=== PATIENT | male | born 1940 | race Caucasian/White ===

== ENCOUNTER → 2019-09-30 | Outpatient (CLI) | payer MEDICAID ==
--- NOTE | 2019-10-05 12:22 | P.ARTDOP ---
Arterial Doppler LOWER EXTREMITY ARTERIAL DOPPLER: DATE OF SERVICE: 09/30/2019 Reason for study: Left calf claudication. Doppler waveforms: Multiphasic throughout on the right. Atypical throughout on the left.. Pulse volume recording: []. Pressure gradients: None on the right. Above the low thigh on the left.. Ankle-brachial indices: Greater than 1 on the right and 0.72 on the left. Toe brachial indices: 0.67 on the right, 0.45 on the left Impression: Normal right side. 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 Clinical correlation with vascular surgery assessment suggested.
== END | disposition home or self-care (01) ==
LOC: RADUSWWP 09:30
PROVIDERS: ATTEND Family Medicine
DX: I77.89 Other specified disorders of arteries and arterioles (principal); I83.812 Varicose veins of left lower extremity with pain
CPT/HCPCS: 93923

== ENCOUNTER 2019-12-12 08:34 | Day surgery (SDC) | payer MEDICAID ==
[2019-12-09 08:45] VITALS: BMI 23.1
[~2019-12-12 08:34] MED LIST: LACTATED RINGERS 1,000 ML IV SCH
[2019-12-12 09:03] VITALS: TEMP 97.8
[2019-12-12] MEDS ORDERED: PROPOFOL 10 MG/ML 20 ML VIAL IV ONE (09:42)
[2019-12-12] MEDS ORDERED: LIDOCAINE 1% INJ 10MG/ML (20 ML MDV) ONE (09:42)
[2019-12-12 10:19] VITALS: RESP 16
--- NOTE | 2019-12-12 10:19 | P.PCN ---
Date of Procedure: 12/12/19 Description of Procedure: BRIEF HISTORY: Patient is a 79-year-old male presenting for outpatient colonoscopy for evaluation after positive Cologard. No prior colonoscopies. No change in bowel habits or blood per rectum. He denies any abdominal pain. No family history of colon cancer PROCEDURE PERFORMED: Colonoscopy with polypectomy. PREOPERATIVE DIAGNOSIS: Positive Cologard, no prior colonoscopy. ESTIMATED BLOOD LOSS: Minimal. IV sedation per Anesthesia. PROCEDURE: After informed consent was obtained, the patient, was brought into the endoscopy unit. IV sedation was administered by Anesthesia under continuous monitoring. Digital rectal examination was normal. Initially the Olympus CF-190 flexible video colonoscope was then inserted in the rectum, gradually advanced into the cecum without any difficulty. Careful examination was performed as the scope was gradually being withdrawn. Ileocecal valve and the appendiceal orifice were visualized and appeared normal. Prep was excellent. Mucosa of the cecum, ascending colon, transverse colon, descending colon, sigmoid colon, and rectum appeared normal. 2 diminutive polyps removed with cold forcep polypectomy from the cecum measuring 3 mm and from the rectum measuring 2 mm. A few scattered diverticula noted in the sigmoid colon. Retroflexion was performed in the rectum and no lesions were seen, low-grade internal hemorrhoids. The patient tolerated the procedure well. IMPRESSION: 2 diminutive polyps removed with cold forceps from the cecum and rectum. Mild sigmoid diverticulosis. Internal hemorrhoids. RECOMMENDATIONS: Findings of this examination were discussed with the patient and his . Okay to resume diet. Okay to resume medications. Await pathology from polypectomies. Follow-up in primary care physician office as scheduled.
[2019-12-12 10:37] VITALS: BP 144/71; PULSE 61
== END 2019-12-12 10:57 ==
LOC: ORWHC2ENDO 08:34
PROVIDERS: ATTEND Internal Medicine
DX: K63.5 Polyp of colon (principal); K62.1 Rectal polyp; K57.30 Diverticulosis of large intestine without perforation or abscess without bleeding; K64.8 Other hemorrhoids; E78.5 Hyperlipidemia, unspecified; G47.33 Obstructive sleep apnea (adult) (pediatric); F17.210 Nicotine dependence, cigarettes, uncomplicated; N40.0 Benign prostatic hyperplasia without lower urinary tract symptoms; Z79.899 Other long term (current) drug therapy; Z98.890 Other specified postprocedural states
CPT/HCPCS: 88305; 45380; J2001; J2704

== ENCOUNTER → 2019-12-29 | Outpatient (CLI) | payer MEDICAID ==
--- NOTE | 2019-12-29 14:10 | MR ---
EXAMINATION TYPE: MR cervical spine wo con DATE OF EXAM: 12/29/2019 COMPARISON: None HISTORY: Neck Pain into left scapula and lt arm TECHNIQUE: Multiplanar, multisequence images of the cervical spine were acquired. C2-C3: Minimal posterior disc bulge causes only slight anterior mass effect on the thecal sac. There is some facet arthropathy causing some left-sided foraminal encroachment. No significant spinal steno sis. C3-C4: Posterior extension endplate disc complex causes mild anterior mass effect on the thecal sac. Uncovertebral joint hypertrophy, facet arthropathy results in left-sided foraminal encroachment. Ther e is mild spinal stenosis. C4-C5: Posterior extension endplate disc complex results in moderate spinal stenosis. There is anteri or mass effect on the thecal sac. Right-sided foraminal encroachment is present greater than left due to uncovertebral joint hypertrophy and facet arthropathy. C5-C6: Posterior extension endplate disc complex causes anterior mass effect on the thecal sac, mild to moderate spinal stenosis. There is foraminal encroachment left greater than right. C6-C7: Posterior extension endplate disc complex causes mild anterior mass effect on the thecal sac. Foraminal encroachment is present bilaterally left greater than right. No significant spinal stenosis . C7-T1: No evidence for degenerative disc disease. No disc bulge/herniation or protrusion. No Canal stenosis. Foramina are patent bilaterally. Cervical segments are intact. There is normal alignment. Cervical spinal cord is of normal signal. Craniovertebral junction relationships are within normal limits. There is multilevel spondylosis wi th endplate discogenic marrow signal change. Loss of disc height, signal is present intervertebral le vels C3-4, C4-5, C5-6 and C6-7, minimal anterolisthesis grade 1 C3-4 and C2-3. The dens shows an irregular appearance, question a remote fracture at this level, there is no evident marrow edema to suggest subacute fracture. Inflammatory changes are present within the sphenoid sinu s. IMPRESSION: Multilevel degenerative disc disease, foraminal encroachment, spinal stenosis. Findings at C2 as desc ribed could possibly represent a remote fracture, consider CT cervical spine. Sphenoid sinus disease.
== END | disposition home or self-care (01) ==
LOC: RADMRIMAIN 12:29
PROVIDERS: ATTEND Family Medicine
DX: M48.02 Spinal stenosis, cervical region (principal); M50.10 Cervical disc disorder with radiculopathy, unspecified cervical region
CPT/HCPCS: 72141

== ENCOUNTER → 2020-01-16 | Outpatient (CLI) | payer MEDICAID ==
[2020-01-16 09:53] VITALS: BP 128/59; PULSE 72; RESP 18; TEMP 98.7
--- NOTE | 2020-01-16 10:16 | P.PAINCN ---
History of Present Illness - Reason for Consult Consult date: 01/16/20 - History of Present Illness This is a 79-year-old patient referred by Dr. Gong (neurosurgeon in [facility]) with a chief complaint of chronic pain in left shoulder pain radiating down to fingertips. She notes that his pain started about 1.5 years ago with no inciting incident. Pain is located in the left neck and shoulder pain with radiation down the posterior arm into the posterior fingers. Pain is described as sharp and shooting with occasional numbness and tingling. Alleviated by heat and raising his arm overhead. Exacerbated by physical activity, in general very hard to pinpoint. Currently his pain is a 5 out of 10, at its worst a 10 out of 10, at its best a 3 out of 10. Medication he is taking Flexeril, Williams, gabapentin and Naprosyn. He notes that he's been taking this medication more than usual this month as his pain is gotten much worse. In regards to his overall management he did physical therapy over the winter which helped for some time but then the pain returned. He then saw a chiropractor earlier this year he did 6 sessions which caused 100% relief of his pain for 2 months. Recently he went back given that his pain does return and felt a chiropractor session was too painful to do any form of therapy for him. He has not had any pain injections in the past. Patient denies adverse drug effects from medications. Patient also denies new- onset weakness, bowel/bladder incontinence, or any other signs or symptoms of cauda equina syndrome. There are no signs of acute intoxication, and no indications of medication diversion or overuse. In addition to above, 13-point review of systems is also negative for chest pain, shortness of breath, changes in vision, changes in hearing, new onset weakness, abdominal pain, diarrhea, extreme fatigue, malaise, fever, skin c hanges, homicidal or suicidal ideation, or bowel or bladder incontinence. Physical exam: Vital Signs: Reviewed in EMR GENERAL: Well appearing, in no acute distress PSYCH: Mood and affect is appropriate. Awake, alert, and oriented SKIN: Skin color, texture, turgor normal, no rashes or lesions HEENT: Normocephalic, atraumatic. EOM intact CV: No pedal edema RESP: Respirations are unlabored, no audible wheezing GI: Abdomen non-distended MUSCULOSKELETAL: Bilateral upper and lower extremity strength is normal and symmetric. No atrophy or tone abnormalities are noted. Neck: pain to palpation over the left cervical paraspinous muscles and upper medial aspect of the scapula. Spurling negative, Axial Loading Test negative, Perrin's sign negative. Some pain with neck flexion and extension No obvious deformity or signs of trauma. Normal cervical lordotic curve and normal cervical spine range of motion Extremities: Peripheral joint ROM is full and pain free without obvious instability or laxity in all four extremities. No edema or skin discolorations noted. Gait: Gait is normal NEUR: Bilateral upper and lower extremity coordination and muscle stretch reflexes are physiologic and symmetric. Negative clonus. No loss of sensation is noted. Cranial nerves are grossly intact. Winter sign negative bilaterally Empty Can negative bilaterally Neers test negative bilaterally Imaging: Cervical MRI 12/2019 C2-C3: Minimal posterior disc bulge causing only slightly anterior mass effect on thecal sac. Some facet arthropathy causing left-sided foraminal encroachment. No significant spinal canal stenosis. C3-C4: Posterior extension endplate disc complex causes mild anterior mass effect on the thecal sac. Uncovertebral joint hypertrophy, facet arthropathy results in left-sided foraminal encroachment. Mild spinal stenosis. C4-C5: Posterior extension endplate disc complex resultant moderate spinal stenosis. Anterior mass effect on the thecal sac. Right-sided foraminal encroachment is present greater on the left due to uncovertebral joint hypertrophy and facet arthropathy. C5-C6: Posterior extension endplate disc complex causes anterior mass effect on the thecal sac mild to moderate spinal stenosis. Foraminal encroachment left greater than right C6-C7: Posterior extension endplate is complex causes mild anterior mass effect on thecal sac. Foraminal encroachment is present bilaterally left greater than right. No significant stenosis. C7-T1: No evidence for degenerative disc disease. No disc bulge or herniation or protrusion. No stenosis. Foramina are patent bilaterally. Assessment: 1. Cervical radicular pain Plan: 1. Explanation: Diagnoses, prognoses, and multiple treatment options including but not limited to physical therapy, interventional therapies, medication management and surgery were discussed with the patient and all questions were answered to the patient's satisfaction. 2. Investigations: None, consider EMG in the future if patient does not get benefit from [facility]UL 3. Counseling: The patient was counseled for 3 minutes on SMOKING CESSATION, BODY MASS INDEX, EXERCISE. Specifically, the patient was instructed regarding the importance of smoking cessation, weight control, and exercise in the context of both chronic pain and overall health. 4. Procedures: Schedule for cervical epidural steroid injection C7-T1 left paramedian approach If our procedures do not help, Dr Gong would like him to come back to consider surgical evaluation. 5. Consultations: None 6. Medications: Continue current regimen from PCP 7. Disposition: For procedure. Past Medical History Past Medical History: Asthma, Cancer, Hyperlipidemia, Osteoarthritis (OA), Prostate Disorder, Sleep Apnea/CPAP/BIPAP Additional Past Medical History / Comment(s): skin cancer, uses CPAP, positive cologuard History of Any Multi-Drug Resistant Organisms: None Reported Past Surgical History: Tonsillectomy Additional Past Surgical History / Comment(s): skin cancers removed, uvulectomy & surg. for sleep apnea, COLONOSCOPY Past Anesthesia/Blood Transfusion Reactions: No Reported Reaction Smoking Status: Former smoker - Past Family History Sister(s) Family Medical History: Cancer Medications and Allergies Home Medications Medication Instructions Recorded Confirmed Type Atorvastatin [Lipitor] 40 mg PO DAILY 12/09/19 01/16/20 History Multivitamins, Thera [Multivitamin 1 tab PO DAILY 12/09/19 01/16/20 History (formulary)] Naproxen [Naprosyn] 500 mg PO Q12HR 12/09/19 01/16/20 History Saw [place] 500 mg PO DAILY 12/09/19 01/16/20 History Tamsulosin [Flomax] 0.4 mg PO DAILY 12/09/19 01/16/20 History Cyclobenzaprine [Flexeril] 10 mg PO HS 01/11/20 01/16/20 History Gabapentin 300 mg PO BID 01/11/20 01/16/20 History HYDROcodone/APAP 7.5-325MG [Williams 1 - 2 tab PO TID PRN 01/11/20 01/16/20 History 7.5-325] Allergies Allergy/AdvReac Type Severity Reaction Status Date / Time No Known Allergies Allergy Verified 01/11/20 15:46 PQRS Measure Charge Sheet PQRS Narrative: Pain Intensity [Left Shoulder] 6 Scale Used Numeric (1 - 10) Hx Alcohol Use (MH) Yes Home Medications: Ambulatory Orders Atorvastatin [Lipitor] 40 mg PO DAILY 12/09/19 Multivitamins, Thera [Multivitamin (formulary)] 1 tab PO DAILY 12/09/19 Naproxen [Naprosyn] 500 mg PO Q12HR 12/09/19 Saw [place] 500 mg PO DAILY 12/09/19 Tamsulosin [Flomax] 0.4 mg PO DAILY 12/09/19 Cyclobenzaprine [Flexeril] 10 mg PO HS 01/11/20 Gabapentin 300 mg PO BID 01/11/20 HYDROcodone/APAP 7.5-325MG [Williams 7.5-325] 1 - 2 tab PO TID PRN 01/11/20
== END | disposition home or self-care (01) ==
LOC: PNWHC3 09:34
PROVIDERS: ATTEND Anesthesiology
DX: M54.12 Radiculopathy, cervical region (principal); Z79.899 Other long term (current) drug therapy; Z79.891 Long term (current) use of opiate analgesic
CPT/HCPCS: 99211

== ENCOUNTER 2020-01-24 06:16 | Day surgery (SDC) | payer MEDICAID ==
[2020-01-20 15:33] VITALS: BMI 23.5
[2020-01-24 07:03] VITALS: RESP 16; TEMP 97.9
[2020-01-24] MEDS ORDERED: fentaNYL (PF) 50 MCG/ML 2 ML AMP ONE (07:21)
[2020-01-24] MEDS ORDERED: MIDAZOLAM 2 MG/2 ML VIAL ONE (07:21)
[2020-01-24] MEDS ORDERED: IOPAMIDOL M200 10 ML VIAL ONE (07:21)
[2020-01-24] MEDS ORDERED: DEXAMETHASONE SOD PHOSPHATE 10 MG/ML 1 ML VIAL ONE (07:21)
--- NOTE | 2020-01-24 07:34 | P.PCN ---
Date of Procedure: 01/24/20 Surgeon: Doug Beckett Pathology: none sent Condition: stable Disposition: PACU Description of Procedure: PROCEDURE 1. Cervical epidural steroid injection under fluoroscopic guidance, C7-T1 in the left paramedian approach. 2. Cervical epidurogram. : PREOPERATIVE DIAGNOSIS: Cervical radiculopathy, cervical spondylosis without myelopathy POSTOPERATIVE DIAGNOSIS: : Same as above ANESTHESIA: Local anesthesia with 1% lidocaine and IV moderate conscious sedation with Versed and Fentanyl . EBL 0 PROCEDURE INDICATION: The patient with neck pain and radiculopathy unresponsive to conservative treatment consents for procedure. PROCEDURE DESCRIPTION / TECHNIQUE: The patient was seen and identified in the preoperative area. Risks, benefits, complications, including but not limited to infections ,bleeding , allergic reactions to the medications ,and not complete pain relief, and alternatives were discussed with the patient, the patient agreed to proceed with the procedure and signed the consent. Patient was taken to the OR and time out was completed. The patient was placed in the prone position on the procedure table. A pillow was placed under the patients chest to increase the flexion of the cervical spine . The cervical area was prepped and draped in the usual sterile fashion. Vital signs were closely monitored during the procedure. Conscious sedation was used during the procedure to decrease patients anxiety. Using anterior-posterior fluoroscopy, the C7-T1 interlaminar space was identified and the skin over this site was marked and then infiltrated with 1% lidocaine subcutaneously. Subsequently, a 20-gauge 3-1/2-inch Tuohy epidural needle was inserted and advanced toward the epidural space by means of loss of resistance to air technique and guided by AP and lateral fluoroscopy. The needle tip contacted the lamina of T1 vertebra first, then it was walked off bone and into the epidural space using the loss of to air and fluoroscopic guidance to identify the epidural space. The correct needle position in the epidural space was verified with the injection of 1 mL of the water soluble contrast dye Isovue and observing an excellent epidurogram with the epidural spread of the dye, after negative aspiration for blood and CSF and in the absence of paresthesias. Again after negative aspiration, a 3 ml mixture containing 20 mg of Decadron and 1 ml of preservative free Normal Saline solution was injected and a washout of epidurogram was seen. Needle was withdrawn intact, skin was cleansed, and bandages were applied. A copy of the needle placement picture was saved to the fluoroscopy machine.
[2020-01-24] MEDS ORDERED: IV FLUID CONTINUATION 800 ML IV ONE (07:48)
[2020-01-24 07:56] VITALS: BP 117/59; PULSE 63
--- NOTE | 2020-01-24 08:12 | FL ---
Fluoroscopy INDICATION: Pain FINDINGS: Fluoroscopy time: 6 seconds. Images obtained: 1. IMPRESSIONS: 1. Documentation of fluoroscopy.
== END 2020-01-24 08:12 | disposition home or self-care (01) ==
LOC: ORPAIN 06:16
PROVIDERS: ATTEND Anesthesiology
DX: Z53.9 Procedure and treatment not carried out, unspecified reason (principal)
CPT/HCPCS: 62321; J2250; J1100; J3010; Q9966

== ENCOUNTER 2020-02-14 14:00 | Day surgery (SDC) | payer MEDICAID ==
[2020-02-08 11:19] VITALS: BMI 24.3
[2020-02-14] MEDS ORDERED: LACTATED RINGERS 1,000 ML IV SCH (14:15)
[2020-02-14 14:31] VITALS: TEMP 97.9
[2020-02-14] MEDS ORDERED: DEXAMETHASONE SOD PHOSPHATE 10 MG/ML 1 ML VIAL ONE (15:20)
[2020-02-14] MEDS ORDERED: IOPAMIDOL M200 10 ML VIAL ONE (15:20)
--- NOTE | 2020-02-14 15:38 | P.PCN ---
Date of Procedure: 02/14/20 Procedure(s) Performed: . PROCEDURE 1. Cervical epidural steroid injection under fluoroscopic guidance, C7-T1 (fluoroscopy images available in the radiology department ) 2. Cervical epidurogram. # 2nd injections PREOPERATIVE DIAGNOSIS: 1- Cervical spinal stenosis 2- Cervical radiculopathy., 3-cervical spondylosis with cervical Facet arthropathy without myelopathy POSTOPERATIVE DIAGNOSIS: : 1- Cervical spinal stenosis 2- Cervical radiculopathy. 3-,cervical spondylosis with cervical Facet arthropathy without myelopathy ANESTHESIA: Local anesthesia with lidocaine 1 % 3 ml only EBL 0 PROCEDURE INDICATION: The patient with neck pain and radiculitis unresponsive to conservative treatment consents for procedure. PROCEDURE DESCRIPTION / TECHNIQUE: The patient was seen and identified in the preoperative area. Risks, benefits, complications, including but not limited to infections ,bleeding , allergic reactions to the medications ,and not complete pain releife, and alternatives were discussed with the patient, the patient agreed to proceed with the procedure and signed the consent. Patient was taken to the OR and time out was completed. The patient was placed in the prone position on the procedure table. A pillow was placed under the patients chest to increase the cervical interlaminar space. The cervical area was prepped and draped in the usual sterile fashion. Vital signs were closely monitored during the procedure. Using anterior-posterior fluoroscopy, the C7-T1 interlaminar space ( left paramedial ) was identified and the skin over this site was marked and then infiltrated with 1% lidocaine subcutaneously. Subsequently, a 20-gauge 3-1/2-inch Tuohy epidural needle was inserted and advanced toward the epidural space by means of the ``hanging-drop technique and guided by AP and lateral fluoroscopy. The correct needle position in the epidural space was verified with the injection of 2 mL of the water soluble contrast dye Isovue-200 and observing an excellent epidurogram with the epidural spread of the dye, after negative aspiration for blood and CSF and in the absence of paresthesias. Again after negative aspiration, mixture containing 20 mg Dexamethasone and 2 ml of preservative-free normal saline injected and a washout of epidurogram was seen. Needle was withdrawn intact, skin was cleansed, and bandages were applied. Complications= none. Disposition= patient was placed in supine position and transferred to the recovery room area in stable condition and there was no evidence of upper or lower extremity motor or sensory deficit after the procedure patient was discharged from recovery room after discharge criteria met and home discharge in structions was given by the staff and patient will follow with the pain clinic in 2-4 weeks
[2020-02-14] MEDS ORDERED: IV FLUID CONTINUATION 800 ML IV ONE (15:41)
[2020-02-14 15:45] VITALS: RESP 16
--- NOTE | 2020-02-14 15:52 | FL ---
Fluoroscopy HISTORY: Pain 5 seconds fluoroscopy time supplied to the referring clinician. 1 intraoperative C-arm images docume nt the procedure. See dictated report from anesthesia.
[2020-02-14 15:54] VITALS: BP 168/80; PULSE 66
== END 2020-02-14 16:03 | disposition home or self-care (01) ==
LOC: ORPAIN 14:00
PROVIDERS: ATTEND Specialist
DX: M47.22 Other spondylosis with radiculopathy, cervical region (principal); M48.02 Spinal stenosis, cervical region
CPT/HCPCS: 62321; J1100; Q9966

== ENCOUNTER 2020-05-09 08:27 | Day surgery (SDC) | payer MEDICAID ==
[2020-05-07 17:48] VITALS: BMI 25.0
[~2020-05-09 08:27] MED LIST changes: +MOXIFLOXACIN HCL 0.5% DROPS 3 ML BTL OP PRN; +TETRACAINE 0.5% OPHTH (PF) DROPS 4 ML BTL OP PRN; +TIMOLOL 0.5% OPHTH DROPS 5 ML BTL OP PRN
[2020-05-09 09:10] VITALS: RESP 16; TEMP 97.8
[2020-05-09] MEDS: PHENYLEPHRINE 2.5% OPHTH DRP 2ML OP PRN ×3 (09:19→09:41)
[2020-05-09] MEDS: CYCLOPENTOLATE 1% OPHTH SOLN 2 ML BTL OP PRN ×3 (09:24→09:44)
[2020-05-09] MEDS ORDERED: LIDOCAINE 1% (10MG/ML) FOR IV START INTRADERMA ONE (09:32)
[2020-05-09] MEDS ORDERED: fentaNYL (PF) 50 MCG/ML 2 ML AMP ONE (10:06)
[2020-05-09] MEDS ORDERED: MIDAZOLAM 2 MG/2 ML VIAL ONE (10:06)
[2020-05-09] MEDS ORDERED: BALANCED SALT IRRIG SOLN COMB2 15 ML IRRIG.SOLN INTRAOCULA ONE (10:19)
[2020-05-09] MEDS ORDERED: HYALURONATE SODIUM INTRAOCULAR 1 EACH SYRINGE (12MG/ML) INTRAOCULA ONE (10:19)
[2020-05-09] MEDS ORDERED: LIDOCAINE 1% (PF) 10MG/ML VIAL SQ ONE ×2 (10:20)
[2020-05-09] MEDS ORDERED: EPINEPHrine (PF) 1 MG/ML AMP SQ ONE (10:27)
[2020-05-09] MEDS ORDERED: EPINEPHrine (PF) 0.3 ML in BALANCED SALT IRRIG SOLN COMB2 500 ML IRRIGATION ONE (10:30)
--- NOTE | 2020-05-09 10:48 | P.OP ---
Date of Procedure: 05/09/20 Preoperative Diagnosis: NS & CS & reg astig Postoperative Diagnosis: same Procedure(s) Performed: PIOL, OD Implants: [id number] 23.5 x 1.25 Anesthesia: MAC Surgeon: Julián Perez Pathology: none sent Condition: stable Disposition: same day Indications for Procedure: blurry vision Operative Findings: no complications
[2020-05-09 11:08] VITALS: BP 134/72; PULSE 63
--- NOTE | 2020-05-09 20:25 | OP ---
OPERATIVE REPORT DATE OF SURGERY: 05/09/2020 PROCEDURE: Phacoemulsification of cataract and intraocular lens implant of the right eye. 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 SURGEON: Dr. Julián Perez ANESTHESIA: Topical. ESTIMATED BLOOD LOSS: None. SPECIMEN TAKEN: None. NARRATIVE: After obtaining the appropriate consent, the patient was brought to the operating room. There he was asked to sit upright, and the axes of 0 and 180 degrees were identified and marked with a gentian meg marker. He was then placed in the proper supine position under cardiac monitoring and prepped and draped in the usual sterile manner. He was approached from his right temporal side, and at the 11 o'clock position an MVR blade was used to create a paracentesis port. Through this opening a mixture of 1% lidocaine MPF with epinephrine 1:1000 and balanced salt solution in a ratio of 1:2:1 was injected into the anterior chamber. A few moments were allowed to see if this medication had any effect on the slightly irregular-appearing pupillary aperture. This was followed by instillation of Amvisc to stabilize the anterior chamber of the eye. At the 9 o'clock position, a 2.5 mm keratome was used to create a self-sealing corneal flap incision. Additionally, using previously acquired corneal topography information, the axis of 153 degrees was identified and marked with a [facility] axis marker which had been also inked with gentian meg. Returning to the anterior chamber, the iris did not appear to enlarge any, and there were indications that inadequate dilation would be sustained through the entire case. Therefore, a 7 mm Malyugin ring was used and inserted on the pupillary sphincter to ensure that the pupil maintained the normal dilation during the entire operation. This was followed by insertion of a cystotome, which was used to begin a continuous tear capsulorrhexis which was then completed using the Utrata forceps. Hydrodissection and hydrodelineation of the lens was accomplished with balanced salt solution. Phacoemulsification of the lens utilizing phaco chop was accomplished at 11.85 seconds at 9% power. Additional lidocaine MPF mixture was instilled into the anterior chamber. This was followed by removal of the remaining cortex from in and around the capsule and underlying the anterior capsular leaflet. The capsular bag was then reinflated with Amvisc and a [employer] Lomb MX 60 ET 23.5 diopter, 1.25 cylinder correction was placed into the capsular bag without difficulty. The remaining viscoelastic was removed from in and around the intraocular lens and the lens hash moy were then aligned with the 153-degree axis marked on the outside of the patient's eye. A small amount of viscoelastic was then inserted into the anterior chamber to facilitate removal of the Malyugin ring. This was followed by removal of all remaining viscoelastic from the anterior chamber. The eye was then brought to normal intraocular pressure through the paracentesis port and the wounds were confirmed watertight. He then received 2 drops of 0.5% timolol followed by 2 drops of moxifloxacin, was then lightly patched and shielded in the usual manner. There were no complications from the procedure. He tolerated the procedure well and was returned to Outpatient Recovery in good condition. MMCAIN / ABDULLAHI: [id number] /
== END 2020-05-09 11:30 | disposition home or self-care (01) ==
LOC: OR 08:27
PROVIDERS: ATTEND Ophthalmology
DX: H25.013 Cortical age-related cataract, bilateral (principal); H25.13 Age-related nuclear cataract, bilateral; H52.221 Regular astigmatism, right eye; H21.81 Floppy iris syndrome; T45.1X5A Adverse effect of antineoplastic and immunosuppressive drugs, initial encounter; H52.03 Hypermetropia, bilateral; H43.22 Crystalline deposits in vitreous body, left eye; H52.4 Presbyopia; E78.5 Hyperlipidemia, unspecified; M19.90 Unspecified osteoarthritis, unspecified site; Z98.890 Other specified postprocedural states; Z90.89 Acquired absence of other organs; Z87.891 Personal history of nicotine dependence; N40.0 Benign prostatic hyperplasia without lower urinary tract symptoms; Z97.2 Presence of dental prosthetic device (complete) (partial); Z79.1 Long term (current) use of non-steroidal anti-inflammatories (NSAID); Z79.82 Long term (current) use of aspirin; Z79.899 Other long term (current) drug therapy
CPT/HCPCS: 66984; V2787; C1780; J2250; J0171; J3010; J2001

== ENCOUNTER 2020-05-16 06:21 | Day surgery (SDC) | payer MEDICAID ==
[2020-05-14 09:02] VITALS: BMI 25.0
[2020-05-16 06:42] VITALS: TEMP 98
[2020-05-16] MEDS: PHENYLEPHRINE 2.5% OPHTH DRP 2ML OP PRN ×3 (06:45→07:03)
[2020-05-16] MEDS: CYCLOPENTOLATE 1% OPHTH SOLN 2 ML BTL OP PRN ×3 (06:47→07:06)
[2020-05-16] MEDS ORDERED: LIDOCAINE 1% (10MG/ML) FOR IV START INTRADERMA ONE (06:54)
[2020-05-16] MEDS ORDERED: fentaNYL (PF) 50 MCG/ML 2 ML AMP ONE (07:21)
[2020-05-16] MEDS ORDERED: MIDAZOLAM 2 MG/2 ML VIAL ONE (07:21)
[2020-05-16] MEDS ORDERED: LIDOCAINE 1% (PF) 10MG/ML VIAL MISCELLANE ONE (07:39)
[2020-05-16] MEDS ORDERED: HYALURONATE SODIUM INTRAOCULAR 1 EACH SYRINGE (12MG/ML) INTRAOCULA ONE (07:39)
[2020-05-16] MEDS ORDERED: BALANCED SALT IRRIG SOLN COMB2 15 ML IRRIG.SOLN IRRIGATION ONE (07:39)
[2020-05-16] MEDS ORDERED: EPINEPHrine (PF) 0.3 ML in BALANCED SALT IRRIG SOLN COMB2 500 ML IRRIGATION ONE (07:43)
--- NOTE | 2020-05-16 07:57 | P.OP ---
Date of Procedure: 05/16/20 Preoperative Diagnosis: NS & CS & exposure to Flomax Postoperative Diagnosis: same Procedure(s) Performed: PIOL, OS Implants: [id number] 24.00 Anesthesia: MAC Surgeon: Julián Perez Pathology: none sent Condition: stable Disposition: same day Indications for Procedure: blurry vision Operative Findings: no complications
[2020-05-16 08:17] VITALS: BP 149/67; PULSE 62; RESP 18
--- NOTE | 2020-05-16 15:51 | OP ---
OPERATIVE REPORT DATE OF SURGERY: May 16, 2020. PROCEDURE: Phacoemulsification of cataract and intraocular lens implant of the left eye. 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 SURGEON: Dr. Julián Perez. ANESTHESIA: Topical. ESTIMATED BLOOD LOSS: None. SPECIMEN TAKEN: None. NARRATIVE: After obtaining the appropriate consent, the patient was brought to the operating room. There he was placed under cardiac monitoring, prepped and draped in the usual sterile manner. He was approached from his left temporal side and at the 5 o'clock position an MVR blade was used to create a paracentesis port. Through this opening 1% Xylocaine MPF 50:50 mix with balanced salt solution was injected into the anterior chamber. This was followed by stabilization of the anterior chamber with Amvisc. At the 3 o'clock position, a 2.5 mm keratome was used to create a self-sealing corneal flap incision. At this point, the irregular shape of the iris and definite flaccidity of the dilator muscle required a 7 mm Malyugin ring to be inserted on the pupillary sphincter. A cystotome was then introduced to begin a continuous tear capsulorrhexis which was completed using the Utrata forceps. Hydrodissection and hydrodelineation of the lens were accomplished with balanced salt solution. Phacoemulsification lens utilizing phaco chop was accomplished in 14.43 seconds at 12% power. Additional Xylocaine MPF was instilled into the anterior chamber. This followed by removal of the remaining cortex under irrigation and aspiration along with careful polishing of the posterior capsule in the capsule vacuum mode. Amvisc was then used to stabilize the capsular bag and a Bausch [employer] Lomb MX60E 24.0 diopter posterior chamber intraocular lens was then injected into the capsular bag without difficulty. The Malyugin ring was disinserted and removed from the anterior chamber and the remaining viscoelastic was then removed from the anterior chamber. Limited ability to get to the remaining viscoelastic from behind the intraocular lens was limited to the miosis presenting at the end of the case. The eye was then brought to normal intraocular pressure through the paracentesis port with balanced salt solution and he was then treated with moxifloxacin 2 drops and 2 drops of 0.5% timolol. He was then lightly patched and shielded in the usual manner. There were no complications from the procedure. He tolerated the procedure well and was returned to outpatient recovery in good condition. ANÍBAL / ABDULLAHI: [id number] /
== END 2020-05-16 08:33 | disposition home or self-care (01) ==
LOC: OR 06:21
PROVIDERS: ATTEND Ophthalmology
DX: H21.81 Floppy iris syndrome (principal); H52.03 Hypermetropia, bilateral; H43.22 Crystalline deposits in vitreous body, left eye; Z98.41 Cataract extraction status, right eye; Z96.1 Presence of intraocular lens; M19.90 Unspecified osteoarthritis, unspecified site; J45.909 Unspecified asthma, uncomplicated; Z85.828 Personal history of other malignant neoplasm of skin; J30.2 Other seasonal allergic rhinitis; Z80.1 Family history of malignant neoplasm of trachea, bronchus and lung; Z79.52 Long term (current) use of systemic steroids; Z79.899 Other long term (current) drug therapy; Z80.7 Family history of other malignant neoplasms of lymphoid, hematopoietic and related tissues; Z83.3 Family history of diabetes mellitus; Z82.49 Family history of ischemic heart disease and other diseases of the circulatory system; Z82.3 Family history of stroke; Z82.0 Family history of epilepsy and other diseases of the nervous system; Z87.891 Personal history of nicotine dependence
CPT/HCPCS: 66984; C1780; J2250; J0171; J3010; J2001

== ENCOUNTER → 2021-12-30 | Outpatient (CLI) | payer BC ==
--- NOTE | 2021-12-30 11:50 | CT ---
EXAMINATION TYPE: CT chest w con DATE OF EXAM: 12/30/2021 COMPARISON: None HISTORY: Nodule CT DLP: 499 mGycm Automated exposure control for dose reduction was used. TECHNIQUE: CT scan of the chest is performed with IV Contrast, patient injected with 70 mL of Isovue 300. MIP I mages are created on CT scanner and reviewed. 3D reconstructed images are created on an independent w orkstation and reviewed. FINDINGS: LUNGS: There is subsegmental consolidation along the upper margin of the thoracic aorta. There is a l obulated mass within the left upper lobe with air bronchograms measuring 2.2 x 1.8 cm. No pleural eff usion or pneumothorax. Hyperinflation suggests COPD there is biapical pleural thickening. Additional 3 mm nodule right lower lobe axial image 38. Additional subpleural nodularity seen. Calcified granulo ma left upper lobe area MEDIASTINUM: There are multiple calcified lymph nodes compatible with chronic granulomatous disease. There is soft tissue fullness in the bilateral lung measuring short axis I.2 cm compatible with lymph adenopathy. No pericardial effusion is seen. OTHER: Hypertrophic and degenerative changes spine. There is a small hiatal hernia. Cannot exclude eccentri c wall thickening of the mid esophagus axial image 45. There is aneurysmal dilation of the abdominal aorta only partially limited measuring 3.5 cm. There is a large mass involving the left kidney measuring 5.8 cm. There is abnormal soft tissue attenuation within the right renal pelvis and proximal ureter suspiciou s for urothelial neoplasm. There is nonobstructing less than 5 mm renal calculi. Splenic granuloma no ajith. There is a small hiatal hernia. Cystic change involving the right shoulder likely is degenerativ e. There is nonspecific thickening of bilateral adrenal gland. Metastasis in the differential diagnosis. IMPRESSION: 1. Suspicious 2.2 x 1.8 cm left upper lobe lung mass suggestive of malignancy. Bilateral hilar adenop athy suspected. Vague consolidation along the margin of the aorta is not recommended PET scan. 2. Highly suspicious left renal mass measuring 5.8 cm suggestive of renal cell carcinoma. 3. Abnormal attenuation within the right renal pelvis and proximal ureter suspicious for urothelial n eoplasm. 4. COPD. 5. There is a 3.5 cm abdominal aortic aneurysm.
== END | disposition home or self-care (01) ==
LOC: RADCTMAIN 08:26
PROVIDERS: ATTEND Family Medicine
DX: J44.9 Chronic obstructive pulmonary disease, unspecified (principal); I71.40 Abdominal aortic aneurysm, without rupture, unspecified
CPT/HCPCS: 82565; 84520; 71260; 36415; Q9967

== ENCOUNTER → 2022-01-18 | Outpatient (CLI) | payer BC ==
--- NOTE | 2022-01-21 19:15 | PE ---
EXAMINATION TYPE: PET CT fusion skull to thigh DATE OF EXAM: 01/18/2022 CLINICAL INDICATION:Male, 81 years old with history of R91.1; TECHNIQUE: Following the intravenous administration of 12.8 mCi of F-18 FDG, whole body images are performed from the skull base to the midthigh. Images are reviewed on the computer in the coronal, a xial, and sagittal planes. Reconstructed rotating images are created on independent workstation and reviewed on the computer. A non-contrast CT is performed in conjunction with the PET scan. Glucose level 86 mg/dL COMPARISON: CT 12/30/2021, PET/CT None, FINDINGS: Mediastinal SUV mean is 1.5 . Hepatic parenchyma SUV mean is 2.1. SKULL BASE AND NECK: Eccentric left posterior esophageal wall thickening measuring up to 9 mm with increased bowel activit y max SUV 2.8. CHEST, MEDIASTINUM, AND HILAR REGION: * Left upper lobe nodule measuring 2.1 by 1.9 cm with max SUV 1.6 * Left pulmonary hilum nodule measuring up to 2.2 x 2.2 cm Max SUV 2.2. * Right pulmonary hilum r nodule measuring up to 2.0 x 1.4 cm. Max SUV 1.7. ABDOMEN AND PELVIS: * Left renal mass measuring 5.5 x 4.8 cm Max SUV 2.4. * The right renal pelvis increased attenuating area demonstrates max SUV 6.0 which may be excreted r adiotracer. OSSEOUS STRUCTURES: No suspicious radiotracer activity. OTHER CT: Paranasal sinus disease. Atherosclerosis of the arterial vasculature including the intracra nial and carotid terminal carotid arteries, carotid bifurcations and coronary arteries. Bilateral aph bravo. Partially calcified mediastinal lymph nodes present. Mild dilation of the right renal sinus pre sent with higher density contents. Nonobstructing right renal calculus. Infrarenal aortic aneurysm measuring up to 5.4 cm there is some mural thrombus felt to be visualized. IMPRESSION: 1. Left upper lobe pulmonary nodule, bilateral perihilar soft tissue nodules with mild increased FDG activity. Tissue sampling of the left upper lobe pulmonary nodule is recommended. 2. Eccentric left esophageal wall thickening with mild increased FDG activity concerning for maligna ncy until proven otherwise. Recommend direct visualization. 3. Left renal masslike appearance which does not demonstrate increased FDG activity but remain suspi cious for neoplastic process. Consider evaluation with MRI/CT renal mass protocol is recommended. 4. Mild right hydronephrosis with high attenuation within the right renal pelvis, Increased radiotra cer activity within this area could relate to excreted radiotracer activity versus radiotracer activi ty within a collecting system mass or other obstructive process. This can be evaluated at the same ti me as MRI/CT urogram for the left renal mass. 5. Infrarenal aortic aneurysm measuring up to 5.4 cm. This can also be evaluated on a forementioned i maging of the kidneys. Endovascular surgical consultation recommended.
== END | disposition home or self-care (01) ==
LOC: RADPETMAIN 13:10
PROVIDERS: ATTEND Internal Medicine Hematology & Oncology
DX: I71.43 Infrarenal abdominal aortic aneurysm, without rupture (principal); N13.30 Unspecified hydronephrosis; K22.89 Other specified disease of esophagus; R91.8 Other nonspecific abnormal finding of lung field
CPT/HCPCS: 78815; A9552

== ENCOUNTER → 2022-02-02 | Outpatient (CLI) | payer BC ==
--- NOTE | 2022-02-03 12:01 | MR ---
EXAMINATION TYPE: MR abdomen wo/w con DATE OF EXAM: 02/02/2022 11:12 AM INDICATION: Patient age:Male; 81 years old; Reason for study: R590. No prior MR, follow up right kidney mass seen on PET COMPARISON: PET/CT 01/21/2022, CT chest 12/30/2021. TECHNIQUE: Multiplanar multi-sequence imaging was performed without contrast. Post contrast imaging was performed. IV Contrast: 7ml cc Gadavist FINDINGS: LOWER CHEST: No gross irregularity. ABDOMEN Liver: Unremarkable. Gallbladder and Bile ducts: Unremarkable. Pancreas: Unremarkable. Spleen: Unremarkable. Adrenal glands: Unremarkable. Kidneys: Right: Demonstration of filling defect within the right renal pelvis measuring up to 3.6 x 2.5 cm. In termediate T2/low T1 signal. There is homogenous postcontrast imaging present. Additional right renal cortical cyst renal pole measuring up to 19 mm. Left: Renal mass which is peripherally low T2/ higher T1 signal peripherally and higher T2 low T1 sig nal essentially measuring 4.7 x 4.7 cm. Postcontrast imaging demonstrated enhancement of the common i rregular periphery. Central nonenhancement suggesting necrosis. Stomach and Bowel: Unremarkable as visualized. Peritoneum: No evidence of pneumoperitoneum, free fluid, or adenopathy. Vasculature: Infrarenal saccular aneurysm measuring up to 4.9 cm. Abdominal wall: Unremarkable. Musculoskeletal: The osseous structures appear intact. IMPRESSION: 1. 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 Urologic consultati on recommended. 2. Infrarenal saccular aneurysm measuring up to 4.9 cm. Endovascular surgical consultation recommend ed. 3. Mild right hydronephrosis secondary to #1 right renal sinus urothelial mass. 4. Simple appearing right renal cyst.
== END | disposition home or self-care (01) ==
LOC: RADMRIMAIN 10:30
PROVIDERS: ATTEND Internal Medicine Hematology & Oncology
DX: D41.10 Neoplasm of uncertain behavior of unspecified renal pelvis (principal); N28.1 Cyst of kidney, acquired; N13.30 Unspecified hydronephrosis; I71.43 Infrarenal abdominal aortic aneurysm, without rupture; R59.0 Localized enlarged lymph nodes
CPT/HCPCS: 74183; A9585

== ENCOUNTER 2022-02-06 11:00 | Day surgery (SDC) | payer BC ==
[2022-02-05 10:57] VITALS: BMI 25.8
[~2022-02-06 11:00] MED LIST changes: +LIDOCAINE 2% (PF) 20 MG/ML 5 ML VIAL INHALATION ONE; +LIDOCAINE VISCOUS 300 MG/15 ML CUP MUCOUS MEM ONE; -MOXIFLOXACIN HCL 0.5% DROPS 3 ML BTL OP PRN; +SODIUM CHLORIDE 0.9% 1,000 ML IV SCH; -TETRACAINE 0.5% OPHTH (PF) DROPS 4 ML BTL OP PRN; -TIMOLOL 0.5% OPHTH DROPS 5 ML BTL OP PRN
[2022-02-06 11:41] VITALS: TEMP 97.2
--- NOTE | 2022-02-06 12:31 | CT ---
EXAMINATION TYPE: CT Chest lizzette Pulliam Protocol DATE OF EXAM: 02/06/2022 COMPARISON: 12/30/2021 HISTORY: pulmonary nodules, bronch guidance CT DLP: [address] of the chest was performed with lung and mediastinal window settings submitted. The la ck of contrast limits evaluation of the vascular, mediastinal and parenchymal structures including th e upper abdomen. LUNGS: 2.3 cm left upper lobe mass felt to reflect malignancy until proven otherwise. 4 mm nodule rig ht lower lobe image 41 sequence 6. Perihilar nodules are difficult to characterize given the lack of contrast. There are also calcified hilar mediastinal lymph nodes. MEDIASTINUM/KAEL: Perihilar nodules are difficult to characterize given the lack of contrast. There are also calcified hilar mediastinal lymph nodes. UPPER ABDOMEN: Nodular thickening distal esophagus. OTHER: No significant other abnormality. IMPRESSION: 1. Left upper lobe mass, perihilar nodules and right lower lobe nodule. Findings are concerning for malignancy.
[2022-02-06] MEDS ORDERED: GLYCOPYRROLATE 0.2 MG/ML 2 ML VIAL ONE (12:51)
[2022-02-06] MEDS ORDERED: LIDOCAINE 2% INJ 20 MG/ML (2 ML VIAL) ONE (12:51)
[2022-02-06] MEDS ORDERED: PROPOFOL 10 MG/ML 20 ML VIAL IV ONE (12:51)
[2022-02-06] MEDS ORDERED: fentaNYL (PF) 50 MCG/ML 2 ML AMP ONE (12:51)
[2022-02-06] MEDS ORDERED: SUCCINYLCHOLINE CHLORIDE 200 MG/10 ML VIAL IV ONE (12:51)
[2022-02-06] MEDS ORDERED: NEOSTIGMINE 1 MG/ML 10 ML VIAL ONE (12:51)
[2022-02-06] MEDS ORDERED: ROCURONIUM 10 MG/ML (5 ML VIAL) IV ONE (12:51)
--- NOTE | 2022-02-06 14:11 | P.PCN ---
Date of Procedure: 02/06/22 Preoperative Diagnosis: Left upper lobe mass Postoperative Diagnosis: Left upper lobe mass Procedure(s) Performed: Operative Findings: 1 Navigational bronchoscopy 2 transbronchial biopsy , transbronchial brushings, transbronchial needle aspirate and BAL of LOC mass 1 (lingular mass) 3 transbronchial Biopsy of LOC mass #2 4 EBUS 5 TBNA of the subcarinal LN Anesthesia: GETA Surgeon: Evangelina Rubio Manager Medicare #1:Candace Buchanan Estimated Blood Loss (ml): 0 Pathology: other Condition: stable Disposition: same day Operative Findings: Indication: left upper lobe mass This procedure was done under general anesthesia. There is a navigational bronchoscopy. The patient initially had a CAT scan of the chest utilizing the [employer] protocol. The images were uploaded into the software and the left upper lobe mass was identified and appropriate calibrations and mapping was done. Following that, all of this information was uploaded into the [employer] navigational tower. The patient was brought into the endoscopy suite. The patient was intubated by [employer]. The patient had a 8 ET tube placed and she was secured in place. Following that, flexible bronchoscope was introduced through the orotracheal tube and an airway inspection was done. The visualized airways included the mid and the distal trachea, bilateral mainstem bronchi, right upper lobe bronchus, bronchus intermedius, right middle lobe and right lower lobe bronchus and the various 10 segments on the right. Bronchoscope was moved to the left and the visualized airways included the left mainstem bronchus, left upper lobe bronchus and left lower lobe bronchus and the various 8 segments on the left. No evidence of any endobronchial lesions or tumors. No foreign bodies. No mucosal abnormalities identified. Using navigational guidance, the bronchoscope was directed to the left upper upper lobe. Using a navigational forceps, transbronchial biopsies of the left upper lobe (lingular) mass was identified and biopsied. Several biopsies were obtained. Following that, transbronchial transbronchial brushings , transbronchial needle aspirate of the the same lesion was done using navigational guidance. The bronchoscope was wedged in thelingular segment of the left upper lobe and a total of 80 mL's of fluid was administered and 20 mL was suctioned back. Aspirate was bloody. No complications. Following that, using navigation guidance, the bronchoscope was directed to the apical segment of the left upper lobe and transbronchial biopsies of the left upper lobe apical segment was done under navigation guidance, mass #2. Endobronchial ultrasound was done to evaluate the mediastinum. Complete evaluation of the mediastinal lymph nodes revealed that the patient had a subcarinal lymph node measuring 20 x 20 mm in size. Transbronchial needle aspirate of the subcarinal lymph node was done using a 22-gauge needle. he says. Patient tolerated the procedure well. No complications. Bronchoscope was removed. Patient was extubated and the patient was transferred to recovery in stable condition.
--- NOTE | 2022-02-06 14:49 | XR ---
EXAMINATION TYPE: XR chest 1V DATE OF EXAM: 02/06/2022 HISTORY: Postbiopsy COMPARISON: None. TECHNIQUE: Single view of the chest is submitted. FINDINGS: Demonstrated are scattered senescent parenchymal change. Left midlung zone infiltrate. No evidence for pneumothorax. The heart is within normal limits. Hilar and mediastinal structures are within normal limits. Degenerative changes are seen of the dorsal spine. IMPRESSION: 1. Left midlung zone infiltrate. No evidence for pneumothorax.
[2022-02-06 14:54] VITALS: RESP 15
[2022-02-06 15:23] VITALS: BP 165/76; PULSE 64
[2022-02-06 23:10] LABS: Appearance,BF Bloody
== END 2022-02-06 15:41 | disposition home or self-care (01) ==
LOC: ORWHC2ENDO 11:00
PROVIDERS: ATTEND Internal Medicine Critical Care Medicine
DX: R59.0 Localized enlarged lymph nodes (principal); E78.5 Hyperlipidemia, unspecified; J44.9 Chronic obstructive pulmonary disease, unspecified; Z79.51 Long term (current) use of inhaled steroids; Z79.899 Other long term (current) drug therapy; Z98.890 Other specified postprocedural states; Z90.89 Acquired absence of other organs
CPT/HCPCS: 87798 ×3; 87496; 87498; 87529; 88104; 88305; 88173; 89050; 88342; 87252; 87502; 87634; 88341; 87070; 87205; 87116; 87102; 87206; 71045; 71250; 31628; 31629; 31624; 31627; 31652; J0330; J2710; J3010; J2704; J2001; 31623

== ENCOUNTER 2022-03-12 08:29 | Day surgery (SDC) | payer BC ==
[~2022-03-12 08:29] MED LIST changes: +ALPRAZolam 0.25 MG TAB PO PRN; -LACTATED RINGERS 1,000 ML IV SCH; -LIDOCAINE 2% (PF) 20 MG/ML 5 ML VIAL INHALATION ONE; -LIDOCAINE VISCOUS 300 MG/15 ML CUP MUCOUS MEM ONE; -SODIUM CHLORIDE 0.9% 1,000 ML IV SCH
[2022-03-12 09:17] LABS: Mean Platelet Volume 7.3; Platelet Count 284 k/uL (150-450)
[2022-03-12 09:25] LABS: Prothrombin Time 10.3 sec (9.0-12.0)
[2022-03-12 09:49] VITALS: TEMP 98.3
[2022-03-12] MEDS: HYDROmorphone 0.5 MG/0.5 ML SYRINGE IVP PRN ×3 (10:59→11:12)
[2022-03-12] MEDS ORDERED: HYDROcodone/APAP 5-325MG 1 EACH TAB PO PRN (11:05)
[2022-03-12 11:58] VITALS: RESP 16
--- NOTE | 2022-03-12 12:30 | US ---
Ultrasound guided left renal mass biopsy Date: 03/12/2022 History: Left renal mass. 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 Also possible diagno sis of lymphoma in the lung, although this is still being questioned. Comparison: MRI 02/02/2022 The patient was brought to the US room after coagulation profile was checked and deemed appropriate. The risks and benefits of the procedure were explained to the patient, and the patient's questions we re answered. Informed consent was obtained. Limited ultrasound of the left kidney redemonstrates a 5.5 cm vascular mass in the lower pole left ki dney. A critical pause was performed. Sterile field was prepared, and lidocaine was used for local anesthes ia. Under direct ultrasound guidance, three 18-gauge core specimens of the left renal mass were obtai vargas. 2 specimens were sent in formalin and one in saline soaked Telfa. After biopsy, Avitene collagen hemostatic matrix was injected through the trocar as it was removed. The patient tolerated the procedure well with no apparent complications. A postprocedural scan throug h the region of interest demonstrated no acute complications. After the procedure, the patient was observed for a short period of time, again with no complications . Impression: Successful ultrasound guided biopsy of a left renal mass.
[2022-03-12 14:43] VITALS: BP 160/71; PULSE 60
== END 2022-03-12 15:19 | disposition home or self-care (01) ==
LOC: RADPROMAIN 08:29
PROVIDERS: ATTEND Urology
DX: C64.1 Malignant neoplasm of right kidney, except renal pelvis (principal)
CPT/HCPCS: 88305; 85049; 85610; 88342; 88341; 36415; 76942; 50200; J1170; 88184; 88185

== ENCOUNTER → 2022-05-06 | Outpatient (CLI) | payer BC ==
[2022-05-06 12:22] LABS: African American GFR (CKD) >90 (>60 ml/min/1.73 sqM); Blood Urea Nitrogen 13 mg/dL (9-20); Non-African American GFR(CKD) 80 (>60 ml/min/1.73 sqM)
--- NOTE | 2022-05-06 13:32 | CT ---
EXAMINATION TYPE: CT chest w con DATE OF EXAM: 05/06/2022 COMPARISON: 12/30/2021, 02/06/2022 HISTORY: lymphoma CT DLP: 319.5 mGycm Automated exposure control for dose reduction was used. TECHNIQUE: CT scan of the chest is performed with IV Contrast, patient injected with 100 mL of Isovue 370. MIP Images are created on CT scanner and reviewed. 3D reconstructed images are created on an independent workstation and reviewed. FINDINGS: LUNGS: Biapical pleural thickening. There is subpleural nodularity particularly within the right uppe r lobe measuring 6 mm. Scattered 7 mm calcified granuloma left upper lobe. There are additional less than 5 mm subpleural nodule seen scattered bilaterally. There is soft tissue fullness in the bilatera l hilum greater on the left measuring a maximal dimension of 2.0 x 2.2 cm. This is similar in size to the prior exam of 02/06/2022. Previously noted 4 mm nodule right lower lobe axial image 36 is again seen. There is persistent large mass measuring 2.3 cm the left upper lobe suspicious for malignancy. No ple ural effusion or pneumothorax. No focal pneumonia. Subsegmental consolidation along the upper margin the aorta is nonspecific. Changes of COPD noted. MEDIASTINUM: There are bilateral soft tissue densities seen in the hilum measuring as short axis of 2 cm on the left and 1.5 cm of the right. Favor that these represent perihilar areas of nodularity or consolidation over adenopathy. They are similar to the prior exam. There is a hiatal hernia with ques tionable wall thickening of the distal esophagus. Coronary artery calcifications seen. Atheroscleroti c change aorta which is of normal caliber. Calcified mediastinal/ lymph nodes again noted. OTHER: There remains hyperdensity within the right renal pelvis with hydronephrosis suspicious for a urothelial malignancy. There is a hyperdense lesion involving the left adrenal gland measuring 1.5 c m. Splenic granuloma are noted. There is a hiatal hernia. Hypertrophic and degenerative changes of th e spine. IMPRESSION: 1. Stable left upper lobe lung mass is suspicious for malignancy. Bilateral hilar areas of consolidat ion or adenopathy are also stable. 2. Persistent findings suspicious for urothelial mass with hydronephrosis of the right kidney. 3. Persistent left adrenal gland enhancement suspicious for neoplasm. Findings stable. 4. Hiatal hernia could not exclude wall thickening. 5. COPD with previous described pulmonary nodules stable in appearance. Dense coronary artery calcification. 6. Complex left renal mass previously noted is not seen in the field of view on today's exam.
--- NOTE | 2022-05-06 14:27 | CT ---
EXAMINATION TYPE: CT urogram wo/w con DATE OF EXAM: 05/06/2022 COMPARISON: 02/02/2022, 01/18/2022 HISTORY: lymphoma, renal ca CT DLP: 1593.8 mGycm Automated exposure control for dose reduction was used. CONTRAST: Performed without and with IV Contrast, patient injected with 100 mL of Isovue 370. FINDINGS: Noncontrast images demonstrate punctate calcification in the spleen compatible with granuloma. There is atherosclerotic change aorta with aneurysmal dilation originating below the level of the renal art eries extending to the aortic bifurcation the maximum dimension of 5.5 cm. There are symmetric nephrograms. 1.2 cm upper pole renal cysts measures 12 Hounsfield units extends i nto the parapelvic region compatible with Bosniak classification 1 cyst. No nephrolithiasis. There is a filling defect on the excretory phase within the renal pelvis measuring approximately 2.7 cm sade tible with a urothelial mass likely malignant. Transitional cell carcinoma most likely. Mild hydronep hrosis is noted. Remaining portion of the ureter demonstrates no additional focus of filling defect t o the level of the UVJ. Left kidney demonstrates a large 5.7 x 4.6 cm solid mass involving the mid pole of the left kidney. E xcretory phase is normal with no filling defect within the visualized portions of the or renal pelvis . There is no evidence of renal vein invasion bilaterally. The bladder demonstrates no definite wall thickening. No definite filling defect. No pathologic adenopathy is seen. Lung bases demonstrate coronary artery calcification and calcification of the aortic valve. There are 2 mm subpleural nodules in the right upper lobe on axial image 6 and 7. Underlying mild COPD suspect ed. There is a small hiatal hernia. There remains thickening and 1.5 cm area of enhancement within the left adrenal gland suspicious for neoplasm. Liver, pancreas, spleen homogeneous. Right adrenal gland normal morphology. Bowel gas pattern nonspec ific and no obstruction. Diverticulosis colon. Hypertrophic and degenerative changes of the spine. Th ere is a air density seen within the right iliac bone which is nonspecific may be related to chronic arthropathy adjacent to the SI joint. Previous biopsy also in the differential diagnosis. Prostate gl and is prominent. There is significant atherosclerotic plaque at the origins of bilateral renal artery suspicious for r enal artery stenosis. IMPRESSION: 1. There is a solid mass mid pole left kidney measuring 5.7 x 4.6 cm compatible with renal cell carci noma. Previously measured 4.7 x 4.7 cm. 2. There is a large filling defect with mild right-sided hydronephrosis within the central renal pelv is extending into the proximal ureter measuring approximately 2.7 cm compatible with a urothelial mas s and most likely representing transitional cell carcinoma. 3. Large abdominal aortic aneurysm measuring 5.5 cm in greatest dimension and previously measured 5.0 cm.. 4. left adrenal gland thickening with a 1.5 cm enhancement suspicious for neoplasm and possible metas tases. 5. Findings suspicious for bilateral proximal renal artery stenosis.
== END | disposition home or self-care (01) ==
LOC: RADCTMAIN 11:39
PROVIDERS: ATTEND Urology
DX: C64.2 Malignant neoplasm of left kidney, except renal pelvis (principal); K44.9 Diaphragmatic hernia without obstruction or gangrene; J44.9 Chronic obstructive pulmonary disease, unspecified; I25.10 Atherosclerotic heart disease of native coronary artery without angina pectoris; N28.89 Other specified disorders of kidney and ureter; R91.8 Other nonspecific abnormal finding of lung field
CPT/HCPCS: 82565; 84520; 71260; 74178; 74400; Q9967

== ENCOUNTER → 2022-08-11 | Outpatient (CLI) | payer BC ==
[2022-08-11 14:26] LABS: African American GFR (CKD) >90 (>60 ml/min/1.73 sqM); Blood Urea Nitrogen 17 mg/dL (9-20); Non-African American GFR(CKD) 80 (>60 ml/min/1.73 sqM)
--- NOTE | 2022-08-12 13:35 | CT ---
EXAMINATION TYPE: CT angio abdomen pelvis DATE OF EXAM: 08/11/2022 COMPARISON: None INDICATION: neoplasm in ureter DLP: 685.1 mGycm, Automated exposure control for dose reduction was used. CONTRAST: 100 mL of Isovue 300. Study performed without Oral Contrast TECHNIQUE: Axial images were obtained from above the diaphragm to the pubic rami in the axial plane a t 5 mm thick sections. Reconstructed images are reviewed on the computer in the coronal plane. Thre e-D reconstructed images through the aorta are performed. FINDINGS: Limited CT sections are obtained the lung bases. The lung bases are clear. CT ABDOMEN: Liver: Normal Spleen: Calcified granuloma within the spleen. Pancreas: Normal Adrenal glands: The adrenal glands are normal. Gallbladder: Normal Kidneys: There is a round mass on the posterior lateral mid inferior left kidney measuring 5.1 cm. Se fernanda 6 image 90. Correlate for renal cell carcinoma. There is a moderate right hydronephrosis. This e xtends proximal ureter. Obstructing etiology is not identified on the patient's reported ureteral gab plasm could be considered although there is some increased density change within the right renal pelv is. Correlate for transitional cell carcinoma. No cysts are present. Delayed images were obtained th rough the kidneys. Aorta: Vascular calcification is within the aorta. Abdominal aortic aneurysm is present with the gre atest AP diameter of 5.6 cm. Abdominal aortic stent is present. This fills with contrast including th e iliac limbs. No extravasation of contrast from the stents is evident. No endovascular leak. Vessels are patent to the common femoral arteries. Inferior vena cava: Normal. CT PELVIS: Loops of bowel within the abdomen and pelvis are normal. This study is without oral contrast limi ting bowel evaluation. Extensive diverticulosis without acute diverticulitis is within the proximal s igmoid colon. Appendix: Normal as visualized. Urinary bladder: Normal. Genitourinary structures: Prostate is prominent. Osseous structures: No suspicious lytic or sclerotic lesions. IMPRESSIONS: 1. Density change within the right renal pelvis above the normal-appearing ureter. Correlate for tra nsitional cell carcinoma. 2. Nonenhancing mass within the posterior lateral left mid kidney suspicious for renal cell carcinoma . 3. No endovascular leak through the aneurysm stent. 4. Diverticulosis without acute diverticulitis.
== END | disposition home or self-care (01) ==
LOC: RADCTMAIN 13:30
PROVIDERS: ATTEND Surgery
DX: I71.43 Infrarenal abdominal aortic aneurysm, without rupture (principal); K57.90 Diverticulosis of intestine, part unspecified, without perforation or abscess without bleeding; N28.89 Other specified disorders of kidney and ureter; J98.4 Other disorders of lung
CPT/HCPCS: 82565; 84520; 36415; 74174; Q9967

== ENCOUNTER → 2022-12-02 | Outpatient (CLI) | payer BC ==
[2022-12-02 15:01] LABS: African American GFR (CKD) 87 (>60 ml/min/1.73 sqM); Blood Urea Nitrogen 13 mg/dL (9-20); Non-African American GFR(CKD) 76 (>60 ml/min/1.73 sqM)
--- NOTE | 2022-12-03 08:54 | CT ---
EXAMINATION TYPE: CT chest w con CT DLP: 3055.4 mGycm, Automated exposure control for dose reduction was used. 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 Chemo Immunotherapy every 3 weeks with next treatment TECHNIQUE: Multiple axial images were obtained through the chest following the administration of 100 cc of Isovue 300. . Coronal and sagittal reformats reviewed. FINDINGS: LUNGS/ PLEURA: No pleural effusion or pneumothorax. Stable left midlung 2.1 cm metastatic pulmonary nodule 5, image 37). Stable bilateral hilar metastatic nodules with the left measuring 2.3 cm and the right measuring 2.2 cm (series 5, image 29). Multiple new scattered groundglass and consolidative op acities with air bronchograms throughout the lungs. Mild paraseptal and centrilobular emphysematous c hanges. Left upper lobe 7 mm calcified granuloma redemonstrated. AIRWAY: Patent and unremarkable.. HEART: Size within normal limits. No pericardial effusion. Moderate coronary artery calcifications. MEDIASTINUM: Stable enlarged metastatic subcarinal lymph node measuring 1.5 cm short axis. Redemonstr ation of a 2.1 cm soft tissue mass within or abutting the esophagus at the level of the barber (serie s 4, image 24). Calcified mediastinal lymph nodes redemonstrated. VASCULATURE: No aortic aneurysm. MUSCULOSKELETAL: No acute osseous abnormalities. No aggressive osseous lesion. SOFT TISSUES/LYMPH NODES: Unremarkable. LOWER NECK: No significant findings. UPPER ABDOMEN: Please see CT abdomen from the same date for findings. IMPRESSION: 1. Stable metastatic pulmonary nodules within the bilateral perihilar regions and left midlung. 2. Stable mediastinal metastatic lymphadenopathy. 3. There is redemonstration of a 2.1 cm soft tissue mass within or abutting the esophagus at the leve l of the barber. This can be further evaluated with esophagram as clinically indicated. Most consiste nt with metastatic disease. 4. Development of multiple groundglass and consolidative opacities throughout the lungs favored to re present a pneumonitis/atypical pneumonia. Attention on follow-up examination. 5. Mild COPD changes.
--- NOTE | 2022-12-03 09:13 | CT ---
EXAMINATION TYPE: CT urogram wo/w con CT DLP: 3055.4 mGycm, Automated exposure control for dose reduction was used. 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 Chemo Immunotherapy every 3 weeks with next treatment TECHNIQUE: Urogram of the abdomen and pelvis was performed before and after the administration of 100 cc of IV c ontrast Isovue 300 contrast. Delayed imaging was performed. Coronal and sagittal reformats were perfo rmed. One or more CT dose reduction strategies were utilized during this examination. FINDINGS: GENITOURINARY: RIGHT KIDNEY AND URETER: Couple punctate nonobstructive calculi. Mild hydronephrosis. No hydroureter. Upper pole cyst redemonstrated measuring up to 1.4 cm and extends into the peripelvic region. There is decreased irregular enhancing wall thickening of the proximal ureter at the ureteropelvic junction from prior examination now measuring up to 8 mm in thickness (series 5, image 26). Previously measur ed up to 2.7 cm. Remaining portions of the ureter appears unremarkable. LEFT KIDNEY AND URETER: Couple of punctate nonobstructive calculi No hydronephrosis or hydroureter. S table 6.0 x 4.7 cm heterogenous enhancing lesion within the left mid kidney. This demonstrates centra l low-attenuation likely representing necrosis again. No evidence for renal vein invasion. No urothel ial lesions: no filling defect, dilation, stricture or wall thickening. URINARY BLADDER: Not optimally distended. No evidence for calculi. No gross evidence of mass or other lesions. REPRODUCTIVE: Prostate gland indents upon the urinary bladder base. ABDOMEN LIVER: Unremarkable. GALLBLADDER AND BILE DUCTS: Unremarkable PANCREAS: Unremarkable. SPLEEN: Punctate calcified granulomas redemonstrated. ADRENAL GLANDS: Right adrenal gland is unremarkable. Stable thickening of the left adrenal gland. STOMACH AND BOWEL: Small hiatal hernia.. Distal colonic diverticulosis without evidence for acute div erticulitis. The appendix is within normal limits. No evidence of bowel obstruction. PERITONEUM: No evidence of pneumoperitoneum, free fluid, or adenopathy. VASCULATURE: Postsurgical changes from aortobiiliac stent grafts. Excluded aneurysm sac has decreased in size measuring 4.9 cm, previously 5.6 cm. No evidence of endoleak. Moderate atherosclerotic calci fication of the aorta and its branches. MUSCULOSKELETAL: No acute osseous and amounted. No aggressive osseous lesion. Similar gas-filled lesi on within the right iliac bone. Differential again is chronic arthropathy adjacent to the SI joint ve rsus previous biopsy versus other. SOFT TISSUE/ABDOMINAL WALL: Unremarkable. LOWER CHEST: Please refer to dedicated CT chest of the same day for findings.. IMPRESSION: 1. Stable heterogenous enhancing 6.0 cm mass within the lateral left mid kidney compatible with blanca l cell carcinoma. 2. Decreased irregular enhancing wall thickening involving the proximal right ureter from prior exam ination indicating positive response to therapy. This again is concerning for transitional cell carci noma. There is associated mild right hydronephrosis. 3. Post surgical changes from aortobiiliac stent with decreased size of excluded aneurysm sac. No ev idence for endoleak. 4. Colonic diverticulosis without evidence for acute diverticulitis.
== END | disposition home or self-care (01) ==
LOC: RADCTMAIN 13:31
PROVIDERS: ATTEND Urology
DX: C64.2 Malignant neoplasm of left kidney, except renal pelvis (principal); C64.1 Malignant neoplasm of right kidney, except renal pelvis; C78.01 Secondary malignant neoplasm of right lung; C78.02 Secondary malignant neoplasm of left lung; R91.8 Other nonspecific abnormal finding of lung field; J44.9 Chronic obstructive pulmonary disease, unspecified; Z85.72 Personal history of non-Hodgkin lymphomas
CPT/HCPCS: 82565; 84520; 71260; 74178; 36415; 74400; Q9967

== ENCOUNTER → 2022-12-24 | Outpatient (CLI) | payer BC | END | disposition home or self-care (01) | LOC: LABWHC1 11:36 | PROVIDERS: ATTEND Internal Medicine Endocrinology, Diabetes & Metabolism | DX: E27.3 Drug-induced adrenocortical insufficiency (principal) | CPT/HCPCS: 36415; 82024; 82533 ==

== ENCOUNTER → 2023-01-22 | Outpatient (CLI) | payer BC | END | disposition home or self-care (01) | LOC: LABWHC1 10:34 | PROVIDERS: ATTEND Internal Medicine Endocrinology, Diabetes & Metabolism | DX: E27.3 Drug-induced adrenocortical insufficiency (principal); E03.8 Other specified hypothyroidism | CPT/HCPCS: 36415; 82024; 82533; 84443 ==

== ENCOUNTER → 2023-03-04 | Outpatient (CLI) | payer BC ==
[2023-03-04 13:38] LABS: African American GFR (CKD) >90 (>60 ml/min/1.73 sqM); Blood Urea Nitrogen 17 mg/dL (9-20); Non-African American GFR(CKD) 81 (>60 ml/min/1.73 sqM)
--- NOTE | 2023-03-04 20:13 | CT ---
EXAMINATION TYPE: CT ChestAbdPelvis w con CT DLP: 918.2 mGycm, Automated exposure control for dose reduction was used. DATE OF EXAM: 03/04/2023 2:54 PM COMPARISON: 12/02/2022. CLINICAL INDICATION:Male, 82 years old with history of C85.98 NON-HODGKIN LYMPHOMA; PHH, f/u lymphoma and renal ca Technique: CT ChestAbdPelvis w con; Multiple axial images were obtained. Two-dimensional coronal and sagittal reconstructions were obtained. Contrast used:100 mL of Isovue 300 with IV Contrast, Oral contrast used: with Oral Contrast Findings: CHEST: LUNGS/ PLEURA: Multifocal airspace opacities with some which are groundglass. The lungs which is incr eased and worsened from prior. Scattered pulmonary nodules remain present. Left perihilar region crystal uring 25 x 22 mm not significantly changed. Lingular pulmonary nodule measuring 24 x 18 mm, previousl y 20 x 21 mm. Right perihilar AIRWAY: Patent and unremarkable. HEART: Size within normal limits. MEDIASTINUM: Scattered enlarged lymph nodes measuring up to 20 mm in short axis in the subcarinal reg ion previously 15 mm. Partially calcified lymph node in the prevascular space measuring 15 mm in shor t axis previously 8 mm. Calcified lymph nodes seen in the left pulmonary hilum throughout the mediast inum. VASCULATURE: No aortic aneurysm. MUSCULOSKELETAL: No acute osseous abnormalities. SOFT TISSUES/LYMPH NODES: Unremarkable. LOWER NECK: No significant findings. ABDOMEN: ABDOMEN LIVER: Unremarkable GALLBLADDER AND BILE DUCTS: Unremarkable. PANCREAS: Unremarkable. SPLEEN: Scattered calcified granulomas. ADRENAL GLANDS: Unremarkable. KIDNEYS AND URETERS: No evidence of obstructive uropathy. LEFT renal mass measuring up to 53 x 48 mm not significantly changed. No right renal masses identified. Right superior pole renal cysts. Right n onobstructing renal calculus measuring 2 mm. No left renal calculi. Proximal right ureter wall thickening remains present and is similar prior measuring 5 mm in thicknes s. Additionally there is a high density focus within the ureter series 3 image 89 per mass. PELVIS BLADDER: Bladder wall thickening which is new from prior. Anteriorly measuring up to 11 mm in lateral ly measuring up to 6 mm. Series 3 image 111. REPRODUCTIVE: Unremarkable. ABDOMEN & PELVIS STOMACH AND BOWEL: No evidence of bowel obstruction. Scattered colonic diverticula are present. Appen heriberto is visualized and normal. PERITONEUM: No evidence of pneumoperitoneum or free fluid. VASCULATURE: Aortobiiliac stent graft appears patent. Excluded lumen measuring up to 45 mm. MUSCULOSKELETAL: No acute osseous abnormalities. Mild disc degeneration changes are present throughou t the thoracolumbar spine. LYMPH NODES: No gross evidence for lymphadenopathy. SOFT TISSUE/ABDOMINAL WALL: Fat-containing umbilical hernia. IMPRESSION: 1. Overall findings suggestive of progressive disease. New areas of bladder wall thickening suggesti ve of urothelial carcinoma. Not seen on 12/02/2022. Direct visualization recommended. Right mid urete r high density focus which could represent urothelial lesion versus noncalcified stone. Similar right renal pelvis ureteral wall thickening in the renal pelvis. 2. Multifocal airspace opacities and groundglass opacities correlate for atypical pneumonia/infectio n. This is progressed from prior on 12/02/2022. Superimposed pulmonary nodules are more conspicuous o n a background of suspected acute infectious process. Nodules were visualized appear similar. 3. Similar left renal mass 4. Scattered colonic diverticulosis.
== END | disposition home or self-care (01) ==
LOC: RADCTMAIN 13:00
PROVIDERS: ATTEND Internal Medicine Hematology & Oncology
DX: K57.30 Diverticulosis of large intestine without perforation or abscess without bleeding (principal); N28.89 Other specified disorders of kidney and ureter; N32.89 Other specified disorders of bladder; R91.8 Other nonspecific abnormal finding of lung field; C66.2 Malignant neoplasm of left ureter; C65.1 Malignant neoplasm of right renal pelvis; C85.98 Non-Hodgkin lymphoma, unspecified, lymph nodes of multiple sites; E78.5 Hyperlipidemia, unspecified; Z71.3 Dietary counseling and surveillance
CPT/HCPCS: 82565; 84520; 71260; 74177; 36415; Q9967

== ENCOUNTER → 2023-03-17 | Outpatient (CLI) | payer BC ==
[2023-03-17 15:58] LABS: African American GFR (CKD) >90 (>60 ml/min/1.73 sqM); Blood Urea Nitrogen 19 mg/dL (9-20); Non-African American GFR(CKD) 82 (>60 ml/min/1.73 sqM)
--- NOTE | 2023-03-17 16:35 | CT ---
CTA CHEST EXAMINATION TYPE: CT angio chest DATE OF EXAM: 03/17/2023 INDICATION: SOB, history of lymphoma and renal cancer CT DLP: 512 mGycm, Automated exposure control for dose reduction was used. CONTRAST: Patient injected with 100 mL of Isovue 370. COMPARISON: 03/04/2023 TECHNIQUE: CT of the chest is performed on a spiral scan at 2 mm thick sections. Study is performed with intravenous contrast timed for evaluation for pulmonary embolism. This will limit additional po rtions of the evaluation. 3-D MIP images reconstructed by the technologist are reviewed on the compu ter in the coronal and sagittal planes. FINDINGS: No persistent filling defects are evident to suggest an acute pulmonary embolism. There is a prominent 1.7 cm subcarinal lymph node. Right hilar superior lymph node appears to be pres ent. Scattered small pretracheal lymph nodes are present. The ascending aorta diameter at the level of the main pulmonary artery is 3.3 cm. The main pulmonary artery diameter at the bifurcation is 2.6 cm. Scattered infiltrates are in the bilateral lung alva. Some pulmonary fibrosis may be present. Infil trates and patchy lung densities appears stable from comparison. Limited CT sections were through the upper abdomen. Scattered calcified granulomata within the splee n. IMPRESSION: 1. Similar appearance to patchy infiltrates throughout the bilateral lung alva. Infectious etiologi es and neoplasm remain within the differential. 2. Enlarged subcarinal lymph node. 3. No acute pulmonary embolism.
== END | disposition home or self-care (01) ==
LOC: RADCTMAIN 15:06
PROVIDERS: ATTEND Internal Medicine Hematology & Oncology
DX: R91.8 Other nonspecific abnormal finding of lung field (principal); I26.99 Other pulmonary embolism without acute cor pulmonale; C65.1 Malignant neoplasm of right renal pelvis; R06.02 Shortness of breath; Z85.528 Personal history of other malignant neoplasm of kidney; Z85.72 Personal history of non-Hodgkin lymphomas
CPT/HCPCS: 82565; 84520; 71275; 36415; Q9967

== ENCOUNTER 2023-03-27 06:42 | Emergency (ER) | payer BC ==
[2023-03-27 06:59] VITALS: BP 136/61; PULSE 87; RESP 18; TEMP 97.9
--- NOTE | 2023-03-27 07:01 | ED ---
Male Urogenital HPI - General Chief complaint: Urogenital Stated complaint: cath issues Time Seen by Provider: 03/27/23 06:44 Source: patient, RN notes reviewed Mode of arrival: ambulatory Limitations: no limitations - History of Present Illness Initial comments: 82-year-old male presents emergency department chief complaint of Bowers catheter not draining. Patient states he had procedure by Dr. Null on Thursday and states he had a catheter placed at that time. He states not been draining overnight his extreme pressure in his lower abdomen. Patient states he does not normally have an indwelling Bowers catheter. Patient states there is a large amount of pressure and very minimal urine output. - Related Data Home Medications Medication Instructions Recorded Confirmed Atorvastatin [Lipitor] 40 mg PO HS 12/09/19 06/18/22 Multivitamins, Thera [Multivitamin 1 tab PO DAILY 12/09/19 06/18/22 (formulary)] Tamsulosin [Flomax] 0.4 mg PO HS 12/09/19 06/18/22 Albuterol Sulfate [Albuterol 1 - 2 puff PO Q4-6H PRN 05/07/20 06/20/22 Sulfate Hfa] Cyanocobalamin [Vitamin B-12] 500 mcg PO DAILY 02/05/22 06/18/22 Ibuprofen/Diphenhydramine Cit 2 each PO HS 06/18/22 06/18/22 [Ibuprofen Pm Caplet] Vitamin D3/Vitamin K2 (Mk4) 1 each PO DAILY 06/18/22 06/18/22 [Vitamin K2 Plus D3 Tablet] Allergies Allergy/AdvReac Type Severity Reaction Status Date / Time No Known Allergies Allergy Verified 03/27/23 06:51 Review of Systems ROS Statement: Those systems with pertinent positive or pertinent negative responses have been documented in the HPI. ROS Other: All systems not noted in ROS Statement are negative. Past Medical History Past Medical History: Asthma, Cancer, COPD, Hyperlipidemia, Osteoarthritis (OA), Prostate Disorder, Sleep Apnea/CPAP/BIPAP Additional Past Medical History / Comment(s): skin cancer, uses CPAP, positive cologuard, HEPATITIS A TEEN , NON HODGKIN'S LYMPHOMA, RENAL CELL CA LT KIDNEY, TRANSITIONAL CELL CA RT KIDNEY, Pt scheduled for immunotherapy trying to check with Vanesa for ok to have today before procedure Thursday. History of Any Multi-Drug Resistant Organisms: None Reported Past Surgical History: Tonsillectomy Additional Past Surgical History / Comment(s): skin cancers removed, uvulectomy & surg. for sleep apnea, COLONOSCOPY polyp removed benign, EPIDURAL INJECTIONS, BRONCHOSCOPY, CYSTOSCOPY, LT KIDNEY NEEDLE BX, cataract removal Past Anesthesia/Blood Transfusion Reactions: No Reported Reaction Past Psychological History: No Psychological Hx Reported Smoking Status: Former smoker Past Alcohol Use History: Rare Past Drug Use History: None Reported - Past Family History Sister(s) Family Medical History: Cancer Additional Family Medical History / Comment(s): LUNG CANCER Brother(s) Family Medical History: Cancer Additional Family Medical History / Comment(s): PROSTATE CANCER x3 Father Additional Family Medical History / Comment(s): parkinsons along with a brother General Exam Limitations: no limitations General appearance: alert, in no apparent distress Head exam: Present: atraumatic, normocephalic, normal inspection Respiratory exam: Present: normal lung sounds bilaterally. Absent: respiratory distress, wheezes, rales, rhonchi, stridor Cardiovascular Exam: Present: regular rate, normal rhythm, normal heart sounds. Absent: systolic murmur, diastolic murmur, rubs, gallop, clicks GI/Abdominal exam: Present: soft, tenderness, normal bowel sounds. Absent: distended, guarding, rebound, rigid Course Vital Signs 03/27/23 06:49 Temperature 97.9 F Pulse Rate 87 Respiratory 18 Rate Blood Pressure 136/61 O2 Sat by Pulse 94 L Oximetry Medical Decision Making - Medical Decision Making Was pt. sent in by a medical professional or institution (, PA, ADJUNCT TEACHER, urgent care, hospital, or detention...) When possible be specific @ -No Did you speak to anyone other than the patient for history (EMS, parent, family, police, friend...)? What history was obtained from this source @ -No Did you review nursing and triage notes (agree or disagree)? Why? @ -I reviewed and agree with nursing and triage notes Were old charts reviewed (outside hosp., previous admission, EMS record, old EKG, old radiological studies, urgent care reports/EKG's, detention records)? Report findings @ -No old charts were reviewed Differential Diagnosis (chest pain, altered mental status, abdominal pain women, abdominal pain men, vaginal bleeding, weakness, fever, dyspnea, syncope, headache, dizziness, GI bleed, back pain, seizure, CVA, palpatations, mental health, musculoskeletal)? @ -[Bowers catheter complication, urinary retention EKG interpreted by me (3pts min.). @ -None X-rays interpreted by me (1pt min.). @ -[None done CT interpreted by me (1pt min.). @ -None done U/S interpreted by me (1pt. min.). @ -None done What testing was considered but not performed or refused? (CT, X-rays, U/S, labs)? Why? @ -None What meds were considered but not given or refused? Why? @ -None Did you discuss the management of the patient with other professionals (professionals i.e. , PA, ADJUNCT TEACHER, lab, RT, psych nurse, social and political studies professor, batter mixer helper, teacher, enforcement officer, case management coordinator)? Give summary @ -No Was smoking cessation discussed for >3mins.? @ -No Was critical care preformed (if so, how long)? @ -No Were there social determinants of health that impacted care today? How? (Homelessness, low income, unemployed, alcoholism, drug addiction, transportation, low edu. Level, literacy, decrease access to med. care, longterm, rehab)? @ -No Was there de-escalation of care discussed even if they declined (Discuss DNR or withdrawal of care, Hospice)? DNR status @ -No What co-morbidities impacted this encounter? (DM, HTN, Smoking, COPD, CAD, Cancer, CVA, ARF, Chemo, Hep., AIDS, mental health diagnosis, sleep apnea, morbid obesity)? @ -None Was patient admitted / discharged? Hospital course, mention meds given and route, prescriptions, significant lab abnormalities, going to OR and other pertinent info. @ -Discharge patient's Bowers catheter was clogged due to blood clot. This was irrigated patient is draining well and states symptoms are resolved. Patient was discharged in stable condition. Undiagnosed new problem with uncertain prognosis? @ -No Drug Therapy requiring intensive monitoring for toxicity (Heparin, Nitro, Insulin, Cardizem)? @ -No Were any procedures done? @ -No Diagnosis/symptom? @ -[Bowers catheter complication Acute, or Chronic, or Acute on Chronic? @ -Acute Uncomplicated (without systemic symptoms) or Complicated (systemic symptoms)? @ -Uncomplicated Side effects of treatment? @ -No Exacerbation, Progression, or Severe Exacerbation? @ -No Poses a threat to life or bodily function? How? (Chest pain, USA, CT, pneumonia, PE, COPD, DKA, ARF, appy, cholecystitis, CVA, Diverticulitis, Homicidal, Suicidal, threat to staff... and all critical care pts) @ -No Disposition Clinical Impression: Bowers catheter problem Disposition: HOME SELF-CARE Condition: Stable Additional Instructions: Please return to the Emergency Department if symptoms worsen or any other concerns. Is patient prescribed a controlled substance at d/c from ED?: No Referrals: Isha Crane DO [Primary Care Provider] - 1-2 days Time of Disposition: 07:31
== END 2023-03-27 07:38 | disposition home or self-care (01) ==
LOC: EC 06:42
DX: T83.098A Other mechanical complication of other urinary catheter, initial encounter (principal); J44.89 Other specified chronic obstructive pulmonary disease; G47.30 Sleep apnea, unspecified; E78.5 Hyperlipidemia, unspecified; M19.90 Unspecified osteoarthritis, unspecified site; Z87.891 Personal history of nicotine dependence; Z79.1 Long term (current) use of non-steroidal anti-inflammatories (NSAID); Z79.899 Other long term (current) drug therapy
CPT/HCPCS: 99283

== ENCOUNTER 2023-03-30 11:01 | Inpatient (IN) | payer BC, MEDICARE ==
[2023-03-30 12:20] LABS: Basophils % (A) 0 %; Eosinophils # (A) 0.4 k/uL (0-0.7); Eosinophils % (A) 4 %; HCT 36.7 % (39.0-53.0); HGB 12.1 gm/dL (13.0-17.5); Lymphocytes # (A) 1.4 k/uL (1.0-4.8); Lymphocytes % (A) 14 %; MCH 29.4 pg (25.0-35.0); MCV 89.1 fL (80.0-100.0); Mean Platelet Volume 7.5; Monocytes # (A) 0.6 k/uL (0-1.0); Monocytes % (A) 7 %; Neutrophils # (A) 6.9 k/uL (1.3-7.7); Neutrophils % (A) 73 %; Platelet Count 371 k/uL (150-450); RBC 4.12 m/uL (4.30-5.90); RDW 13.7 % (11.5-15.5); WBC 9.5 k/uL (3.8-10.6)
--- NOTE | 2023-03-30 12:27 | ED ---
SOB HPI - General Chief Complaint: Shortness of Breath Stated Complaint: weakness Time Seen by Provider: 03/30/23 11:22 Source: patient, RN notes reviewed Mode of arrival: ambulatory Limitations: no limitations - History of Present Illness Initial Comments: This is an 82-year-old male who presents to the emergency department for weakness, coughing, and shortness of breath. Patient is currently being treated for renal cancer. He saw Dr. Alexis about 3 weeks ago and discussed the coughing, shortness of breath, and weakness. There was concern of possible pneumonia on imaging. He was started on antibiotics and steroids. States that he started to improve on the medication. On 03/25 he had a biopsy on the kidneys. Anesthesiology at that point felt like his breathing had improved enough to where he could undergo the procedure. However, states that since undergoing this procedure, symptoms have gotten worse. He is short of breath just in conversation. Also reports increasing fatigue and weakness. Denies any chest pain. He had a follow-up with Dr. Null, urology today, who advised he come to the emergency department for evaluation. MD Complaint: shortness of breath, cough - Related Data Home Medications Medication Instructions Recorded Confirmed Atorvastatin [Lipitor] 40 mg PO HS 12/09/19 03/30/23 Tamsulosin [Flomax] 0.4 mg PO HS 12/09/19 03/30/23 Albuterol Sulfate [Albuterol 1 - 2 puff PO Q4-6H PRN 05/07/20 03/30/23 Sulfate Hfa] Fluticasone Nasal [place] [Flonase 2 spray EA NOSTRIL DAILY 03/30/23 03/30/23 Nasal [place]] Levothyroxine Sodium [Synthroid] 125 mcg PO DAILY 03/30/23 03/30/23 Allergies Allergy/AdvReac Type Severity Reaction Status Date / Time No Known Allergies Allergy Verified 03/30/23 11:20 Review of Systems ROS Statement: Those systems with pertinent positive or pertinent negative responses have been documented in the HPI. ROS Other: All systems not noted in ROS Statement are negative. Past Medical History Past Medical History: Asthma, Cancer, COPD, Hyperlipidemia, Osteoarthritis (OA), Prostate Disorder, Sleep Apnea/CPAP/BIPAP Additional Past Medical History / Comment(s): skin cancer, uses CPAP, positive cologuard, HEPATITIS A TEEN , NON HODGKIN'S LYMPHOMA, RENAL CELL CA LT KIDNEY, TRANSITIONAL CELL CA RT KIDNEY, Pt scheduled for immunotherapy trying to check with Vanesa for ok to have today before procedure Thursday. History of Any Multi-Drug Resistant Organisms: None Reported Past Surgical History: Tonsillectomy Additional Past Surgical History / Comment(s): skin cancers removed, uvulectomy & surg. for sleep apnea, COLONOSCOPY polyp removed benign, EPIDURAL INJECTIONS, BRONCHOSCOPY, CYSTOSCOPY, LT KIDNEY NEEDLE BX, cataract removal Past Anesthesia/Blood Transfusion Reactions: No Reported Reaction Past Psychological History: No Psychological Hx Reported Smoking Status: Former smoker Past Alcohol Use History: Occasional, Rare Past Drug Use History: None Reported - Past Family History Sister(s) Family Medical History: Cancer Additional Family Medical History / Comment(s): LUNG CANCER Brother(s) Family Medical History: Cancer Additional Family Medical History / Comment(s): PROSTATE CANCER x3 Father Additional Family Medical History / Comment(s): parkinsons along with a brother General Exam Limitations: no limitations General appearance: alert, in no apparent distress Head exam: Present: atraumatic, normocephalic, normal inspection Respiratory exam: Present: respiratory distress, wheezes Cardiovascular Exam: Present: regular rate, normal rhythm, normal heart sounds. Absent: systolic murmur, diastolic murmur, rubs, gallop, clicks Neurological exam: Present: alert, oriented X3, CN II-XII intact Psychiatric exam: Present: normal affect, normal mood Skin exam: Present: warm, dry, intact, normal color. Absent: rash Course Vital Signs 03/30/23 03/30/23 03/30/23 11:13 11:20 11:40 Temperature 98.1 F Pulse Rate 88 76 Respiratory 24 24 18 Rate Blood Pressure 131/67 128/58 O2 Sat by Pulse 97 95 Oximetry 03/30/23 03/30/23 03/30/23 13:16 14:09 14:19 Temperature Pulse Rate 87 86 90 Respiratory 18 Rate Blood Pressure 127/67 O2 Sat by Pulse 95 Oximetry 03/30/23 15:23 Temperature Pulse Rate 91 Respiratory 88 H Rate Blood Pressure 116/51 O2 Sat by Pulse 95 Oximetry Medical Decision Making - Medical Decision Making This is an 82-year-old male who presents to the emergency department for shortness of breath. Was pt. sent in by a medical professional or institution? @ -No Did you speak to anyone other than the patient for history? @ -No Did you review nursing and triage notes? @ -Yes, and I agree, it is accurate with regards to the patient's symptoms. Were old charts reviewed? @ -No Differential Diagnosis? @ -Differential Dyspnea: Coronary syndrome, arrhythmia, tamponade, asthma, COPD, pulmonary embolism, pneumonia, pneumothorax, pulmonary effusion, anaphylaxis, diabetic ketoacidosis, flailed chest, pulmonary contusion, diaphragmatic rupture, anemia, neuromuscu lar, this is not meant to be an all-inclusive list. EKG interpreted by me (3pts min.)? @ -EKG interpreted by me demonstrating the following: Sinus rhythm. Ventr icular rate 78 beats per minute, OK interval 129 ms, QRS duration 94 ms, QTC 376 ms. X-rays interpreted by me (1pt min.)? @ -Chest x-ray obtained. My interpretation identifies multifocal airspace opacities. CT interpreted by me (1pt min.)? @ -CTA of the chest obtained. My interpretation identifies no evidence of a pulmonary embolus. U/S interpreted by me (1pt. min.)? @ -Not obtained What testing was considered but not performed? (CT, X-rays, U/S, labs)? Why? @ -None What meds were considered but not given? Why? @ -None Did you discuss the management of the patient with other professionals? @ -Yes, Dr. Lombardo, who accepts the patient for admission. Did you reconcile home meds? @ -Yes Was smoking cessation discussed for >3mins.? @ -No Was critical care preformed (if so, how long)? @ -No Were there social determinants of health that impacted care today? How? (Homelessness, low income, unemployed, alcoholism, drug addiction, lopez sportation, low edu. Level, literacy, decrease access to med. care, halfway, rehab)? @ -No Was there de-escalation of care discussed even if they declined? (Discuss DNR or withdrawal of care, Hospice)? @ -No What co-morbidities impacted this encounter? (DM, HTN, Smoking, COPD, CAD, Cancer, CVA, Hep., AIDS, mental health diagnosis, sleep apnea, morbid obesity)? @ -Asthma, cancer, COPD Was patient admitted / discharged? @ -Admitted. Lab work obtained demonstrating an elevated d-dimer of 1.61 and elevated LFTs. COVID, influenza, and RSV testing were negative. Chest x-ray is concerning for multifocal pneumonia. Given the elevated d-dimer and the patient's symptoms, CTA of the chest was obtained. No evidence of a pulmonary embolus was identified. He was found to have scattered irregular infiltrates bilaterally concerning for atypical pneumonia. Pulmonary fibrosis and other infectious etiologies are also said to be possibilities. Neoplasm is not excluded. Patient was exhibiting significant conversational dyspnea. Given the severity of his symptoms with multifocal pneumonia, patient was admitted to medicine for further treatment. Blood cultures were obtained and the patient was started on Ceftriaxone and azithromycin. Undiagnosed new problem with uncertain prognosis? @ -None Drug Therapy requiring intensive monitoring for toxicity (Heparin, Nitro, Insulin, Cardizem)? @ -None Were any procedures done? @ -None Diagnosis/symptom? @ -Multifocal pneumonia Acute, or Chronic, or Acute on Chronic? @ -Acute Uncomplicated (without systemic symptoms) or Complicated (systemic symptoms)? @ -Complicated Side effects of treatment? @ -None Exacerbation, Progression, or Severe Exacerbation] @ -Not applicable Poses a threat to life or bodily function? @ -Yes This case was discussed in detail with the attending ED physician, Dr. Cline. Presentation, findings, and treatment plan discussed in detail as well. - Lab Data Result diagrams: 03/30/23 12:10 03/30/23 12:10 Lab Results 03/30/23 03/30/23 03/30/23 Range/Units 12:10 12:10 12:10 WBC 9.5 (3.8-10.6) k/uL RBC 4.12 L (4.30-5.90) m/uL Hgb 12.1 L (13.0-17.5) gm/dL Hct 36.7 L (39.0-53.0) % MCV 89.1 (80.0-100.0) fL MCH 29.4 (25.0-35.0) pg MCHC 33.0 (31.0-37.0) g/dL RDW 13.7 (11.5-15.5) % Plt Count 371 (150-450) k/uL MPV 7.5 Neutrophils % 73 % Lymphocytes % 14 % Monocytes % 7 % Eosinophils % 4 % Basophils % 0 % Neutrophils # 6.9 (1.3-7.7) k/uL Lymphocytes # 1.4 (1.0-4.8) k/uL Monocytes # 0.6 (0-1.0) k/uL Eosinophils # 0.4 (0-0.7) k/uL Basophils # 0.0 (0-0.2) k/uL PT 10.8 (10.0-12.5) sec INR 1.0 (<1.2) APTT 27.6 (22.0-30.0) sec D-Dimer (<0.60) mg/L FEU Sodium 133 L (137-145) mmol/L Potassium 4.6 (3.5-5.1) mmol/L Chloride 101 (98-107) mmol/L Carbon Dioxide 28 (22-30) mmol/L Anion Gap 4 mmol/L BUN 14 (9-20) mg/dL Creatinine 0.84 (0.66-1.25) mg/dL Est GFR (CKD-EPI)AfAm >90 (>60 ml/min/1.73 sqM) Est GFR (CKD-EPI)NonAf 82 (>60 ml/min/1.73 sqM) Glucose 93 (74-99) mg/dL Plasma Lactic Acid Jim (0.7-2.0) mmol/L Calcium 9.4 (8.4-10.2) mg/dL Total Bilirubin 0.5 (0.2-1.3) mg/dL AST 138 H (17-59) U/L ALT 152 H (4-49) U/L Alkaline Phosphatase 193 H (38-126) U/L Troponin I (0.000-0.034) ng/mL NT-Pro-B Natriuret Pep 280 pg/mL Total Protein 6.4 (6.3-8.2) g/dL Albumin 3.1 L (3.5-5.0) g/dL Influenza Type A (PCR) (Not Detectd) Influenza Type B (PCR) (Not Detectd) RSV (PCR) (Not Detectd) SARS-CoV-2 (PCR) (Not Detectd) 03/30/23 03/30/23 03/30/23 Range/Units 12:10 12:10 12:10 WBC (3.8-10.6) k/uL RBC (4.30-5.90) m/uL Hgb (13.0-17.5) gm/dL Hct (39.0-53.0) % MCV (80.0-100.0) fL MCH (25.0-35.0) pg MCHC (31.0-37.0) g/dL RDW (11.5-15.5) % Plt Count (150-450) k/uL MPV Neutrophils % % Lymphocytes % % Monocytes % % Eosinophils % % Basophils % % Neutrophils # (1.3-7.7) k/uL Lymphocytes # (1.0-4.8) k/uL Monocytes # (0-1.0) k/uL Eosinophils # (0-0.7) k/uL Basophils # (0-0.2) k/uL PT (10.0-12.5) sec INR (<1.2) APTT (22.0-30.0) sec D-Dimer (<0.60) mg/L FEU Sodium (137-145) mmol/L Potassium (3.5-5.1) mmol/L Chloride (98-107) mmol/L Carbon Dioxide (22-30) mmol/L Anion Gap mmol/L BUN (9-20) mg/dL Creatinine (0.66-1.25) mg/dL Est GFR (CKD-EPI)AfAm (>60 ml/min/1.73 sqM) Est GFR (CKD-EPI)NonAf (>60 ml/min/1.73 sqM) Glucose (74-99) mg/dL Plasma Lactic Acid Jim 1.2 (0.7-2.0) mmol/L Calcium (8.4-10.2) mg/dL Total Bilirubin (0.2-1.3) mg/dL AST (17-59) U/L ALT (4-49) U/L Alkaline Phosphatase (38-126) U/L Troponin I <0.012 (0.000-0.034) ng/mL NT-Pro-B Natriuret Pep pg/mL Total Protein (6.3-8.2) g/dL Albumin (3.5-5.0) g/dL Influenza Type A (PCR) Not Detected (Not Detectd) Influenza Type B (PCR) Not Detected (Not Detectd) RSV (PCR) Not Detected (Not Detectd) SARS-CoV-2 (PCR) Not Detected (Not Detectd) 03/30/23 Range/Units 13:18 WBC (3.8-10.6) k/uL RBC (4.30-5.90) m/uL Hgb (13.0-17.5) gm/dL Hct (39.0-53.0) % MCV (80.0-100.0) fL MCH (25.0-35.0) pg MCHC (31.0-37.0) g/dL RDW (11.5-15.5) % Plt Count (150-450) k/uL MPV Neutrophils % % Lymphocytes % % Monocytes % % Eosinophils % % Basophils % % Neutrophils # (1.3-7.7) k/uL Lymphocytes # (1.0-4.8) k/uL Monocytes # (0-1.0) k/uL Eosinophils # (0-0.7) k/uL Basophils # (0-0.2) k/uL PT (10.0-12.5) sec INR (<1.2) APTT (22.0-30.0) sec D-Dimer 1.61 H (<0.60) mg/L FEU Sodium (137-145) mmol/L Potassium (3.5-5.1) mmol/L Chloride (98-107) mmol/L Carbon Dioxide (22-30) mmol/L Anion Gap mmol/L BUN (9-20) mg/dL Creatinine (0.66-1.25) mg/dL Est GFR (CKD-EPI)AfAm (>60 ml/min/1.73 sqM) Est GFR (CKD-EPI)NonAf (>60 ml/min/1.73 sqM) Glucose (74-99) mg/dL Plasma Lactic Acid Jim (0.7-2.0) mmol/L Calcium (8.4-10.2) mg/dL Total Bilirubin (0.2-1.3) mg/dL AST (17-59) U/L ALT (4-49) U/L Alkaline Phosphatase (38-126) U/L Troponin I (0.000-0.034) ng/mL NT-Pro-B Natriuret Pep pg/mL Total Protein (6.3-8.2) g/dL Albumin (3.5-5.0) g/dL Influenza Type A (PCR) (Not Detectd) Influenza Type B (PCR) (Not Detectd) RSV (PCR) (Not Detectd) SARS-CoV-2 (PCR) (Not Detectd) - Radiology Data Radiology results: report reviewed, image reviewed Disposition Clinical Impression: Multifocal pneumonia Disposition: ADMITTED IP TO THIS [facility] Referrals: Isha Crane DO [Primary Care Provider] - 1-2 days Time of Disposition: 15:09
[2023-03-30] MEDS ORDERED: PNEUMONIA PROTOCOL UTILIZED 1 EACH MISC PO PRN (12:30)
--- NOTE | 2023-03-30 12:30 | XR ---
EXAMINATION TYPE: XR chest 2V DATE OF EXAM: 03/30/2023 12:00 PM CLINICAL INDICATION:Male, 82 years old with history of difficulty breathing; COMPARISON: Chest radiographs from02/06/2022. TECHNIQUE: XR chest 2V Frontal and lateral views of the chest. FINDINGS: Lungs/Pleura: New multifocal airspace opacities compared to prior in 2021. No evidence of pneumothora x or pleural effusion. Pulmonary vascularity: Unremarkable. Heart/mediastinum: Cardiomediastinal silhouette is unremarkable. Musculoskeletal: No acute osseous pathology. IMPRESSION: Multifocal airspace opacities concerning for pneumonia. Airspace opacities within the right lung appe ar new from prior. Correlate for pneumonia.
[2023-03-30 12:31] LABS: ALT 152 U/L (4-49); AST 138 U/L (17-59); African American GFR (CKD) >90 (>60 ml/min/1.73 sqM); Albumin 3.1 g/dL (3.5-5.0); Alkaline Phosphatase 193 U/L (38-126); Anion Gap 4 mmol/L; Blood Urea Nitrogen 14 mg/dL (9-20); Calcium 9.4 mg/dL (8.4-10.2); Carbon Dioxide 28 mmol/L (22-30); Chloride 101 mmol/L (98-107); Glucose 93 mg/dL (74-99); Non-African American GFR(CKD) 82 (>60 ml/min/1.73 sqM); Potassium 4.6 mmol/L (3.5-5.1); Sodium 133 mmol/L (137-145); Total Bilirubin 0.5 mg/dL (0.2-1.3); Total Protein 6.4 g/dL (6.3-8.2)
[2023-03-30 12:38] LABS: Partial Thromboplastin Time 27.6 sec (22.0-30.0); Prothrombin Time 10.8 sec (10.0-12.5)
[2023-03-30 12:41] LABS: NT-Pro-B-Type Natriuretic Pept 280 pg/mL
[2023-03-30] MEDS: AZITHROMYCIN 500 MG in SODIUM CHLORIDE 0.9% 250 ML IVPB STA (13:32)
[2023-03-30] MEDS: IPRATROPIUM-ALBUTEROL 3 ML NEB INHALATION STA (14:06)
--- NOTE | 2023-03-30 14:10 | CT ---
CTA CHEST EXAMINATION TYPE: CT chest angio for PE DATE OF EXAM: 03/30/2023 INDICATION: Chest congestion and elevated D-dimer CT DLP: 309.2 mGycm, Automated exposure control for dose reduction was used. CONTRAST: Patient injected with 100 ml mL of Isovue 300. COMPARISON: None TECHNIQUE: CT of the chest is performed on a spiral scan at 2 mm thick sections. Study is performed with intravenous contrast timed for evaluation for pulmonary embolism. This will limit additional po rtions of the evaluation. 3-D MIP images reconstructed by the technologist are reviewed on the compu ter in the coronal and sagittal planes. FINDINGS: No persistent filling defects are evident to suggest an acute pulmonary embolism. There is a 1.6 cm lymph node in the anterior superior mediastinum. This has some eccentric calcificat ion was present previously. Additional calcified lymphadenopathies in the superior mediastinum there is some prominent right hilar adenopathy measuring 1.3 cm. The ascending aorta diameter at the level of the main pulmonary artery is 3.3 cm. The main pulmonary artery diameter at the bifurcation is 2.6 cm. Coronary artery calcification is present. Scattered irregular infiltrates are present bilaterally. Correlate for atypical pneumonia. Pulmonary fibrosis, infectious etiologies could be considered. Neoplasm is not excluded on the basis of this ex am. Findings appear stable from 03/17/[address] sections were through the upper abdomen. Minimal prominence of the superior pole right re nal collecting system may be present. Peripelvic cyst could be considered within the differential. IMPRESSION: 1. No persistent filling defects to suggest acute pulmonary embolism. 2. Chronic scattered lung findings present bilaterally. Correlate for pulmonary fibrosis, atypical pn eumonia, neoplasm refinement appears stable from comparison
[2023-03-30] MEDS ORDERED: IPRATROPIUM-ALBUTEROL 3 ML NEB INHALATION PRN (14:30)
[2023-03-30] MEDS ORDERED: MORPHINE SULFATE 4 MG/ML SYRINGE IV PRN (15:06)
[2023-03-30] MEDS ORDERED: HYDROcodone/APAP 5-325MG 1 EACH TAB PO PRN (15:06)
[2023-03-30] MEDS ORDERED: NALOXONE 0.4 MG/ML 1 ML VIAL IV PRN (15:06)
[2023-03-30] MEDS ORDERED: ACETAMINOPHEN TAB 325 MG TAB PO PRN (15:06)
[2023-03-30] MEDS ORDERED: ALBUTEROL NEBULIZED 2.5 MG/3 ML INHALATION PRN (15:08)
[2023-03-30] MEDS: IPRATROPIUM-ALBUTEROL 3 ML NEB INHALATION SCH (16:25)
[2023-03-30] MEDS ORDERED: BENZOCAINE/MENTHOL LOZENG 1 EACH LOZENGE MUCOUS MEM PRN (16:48)
[2023-03-30] MEDS ORDERED: BENZONATATE 100 MG CAP PO PRN (16:48)
[2023-03-30] MEDS ORDERED: MORPHINE SULFATE 2 MG/ML SYRINGE IV PRN (16:52)
[2023-03-30] MEDS: methylPREDNISolone SOD SUCCI 40 MG/ML 1 ML VIAL IV SCH (17:41)
[2023-03-30] MEDS: guaiFENesin 600 MG TABLET.ER PO SCH (20:10)
[2023-03-30] MEDS: TAMSULOSIN 0.4 MG CAP.ER.24H PO SCH (20:10)
[2023-03-30] MEDS: ATORVASTATIN 40 MG TAB PO SCH (20:10)
[2023-03-31] MEDS: LEVOTHYROXINE 125 MCG TAB PO SCH (06:25)
[2023-03-31] MEDS ORDERED: VANCOMYCIN IV PER PHARMACY 1 EACH MISC MISCELLANE PRN ×2 (07:28→08:41)
--- NOTE | 2023-03-31 07:32 | P.CNPUL ---
History of Present Illness Consult date: 03/31/23 Requesting physician: Carlota Levi Reason for consult: pneumonia Chief complaint: Shortness of breath, cough, subjective fever, weakness History of present illness: I am seeing this patient in consultation today March 31, 2023 after he was sent in from Dr. Null's office after being found profoundly weak and short of breath. Patient is a 83-year-old white male with past medical history significant for renal cancer, left upper lung nodule, COPD, hypothyroidism, hyperlipidemia, and remote tobacco smoker. Dr. Alexis is his oncologist. Patient has a known left upper lobe lung nodule that was biopsied by Dr. Rubio in 2021, which tested positive for atypical lymphoreticular infiltrates compatible with non-Hodgkin lymphoma. This is currently being monitored. Patient also has a left renal mass positive for renal cell carcinoma in which he is currently undergoing Keytruda treatments every 3 weeks. This treatment is being ongoing since Jun, 2022. 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 For this reason he follows with Dr. Auguste. Patient recently underwent an outpatient urological procedure with Dr. Auguste, he was at the office for follow-up yesterday, and was directed to the emergency room. Patient was profoundly weak and short of breath. Of note, patient was treated for pneumonia outpatient by Dr. Alexis approximately one month ago. A chest CT done at that time showed diffuse multifocal airspace opacities and groundglass opacities concerning for atypical pneumonia/infection. He was given antibiotics and steroids. Patient completed these medications, and initially felt better. After the procedure, however, he became more short of breath. He had associated subjective fevers, mostly at night, and chills during the day. He has had a cough, with mostly clear sputum production. Denies any chest pain. Denies any hemoptysis. Denies any sick contacts. He does endorse reduced appetite and nausea. No vomiting or abdominal pain. Patient is currently lying in bed, on 2 L/min nasal cannula, fairly comfortable. He appears very weak and fatigued, and it is taxing to sit up in bed. Chest CTA on arrival did not show any evidence o f pulmonary embolism. It did redemonstrate scattered bilateral infiltrates, similar in appearance, correlating for possible pulmonary fibrosis, immunotherapy pneumonitis, or atypical pneumonia. There is also the patient's left upper lobe lung nodule redemonstrated as well as mediastinal lymphadeno rowena. CBC on arrival: WBC count 9.5, hemoglobin 12.1, hematocrit 36.7, platelets 371. BMP on arrival: Sodium 133, potassium 4.6, chloride 101, serum bicarb 28, BUN 14, creatinine 0.8, glucose 93. Liver enzymes mildly elevated. NT proBNP 280. Troponin less than 0.012. Procalcitonin level 0.14. Negative for influenza, RSV, COVID. Patient empirically started on antibiotics. Currently afebrile. Vital signs are stable. Review of Systems REVIEW OF SYSTEMS: CONSTITUTIONAL: Denies any recent significant weight loss or weight gain. EYES: Denies change in vision. EARS, NOSE, MOUTH, THROAT: Denies headaches, denies sore throat. CARDIOVASCULAR: Denies chest pain, palpitations or syncopal episodes. RESPIRATORY: See HPI GASTROINTESTINAL: See HPI GENITOURINARY: Admits postoperative hematuria which is clearing up. Denies any dysuria, urinary frequency. MUSKULOSKELETAL: Denies pain, denies swelling. INTEGUMENTARY: Denies rash, denies eczema. NEUROLOGICAL: Denies recent memory loss, no recent seizure activity. PSYCHIATRIC: Denies anxiety, denies depression. HEMATOLOGIC/LYMPHATIC: Denies anemia, denies enlarged lymph node Past Medical History Past Medical History: Asthma, Cancer, COPD, Hyperlipidemia, Osteoarthritis (OA), Prostate Disorder, Sleep Apnea/CPAP/BIPAP Additional Past Medical History / Comment(s): skin cancer, uses CPAP, positive cologuard, HEPATITIS A TEEN , NON HODGKIN'S LYMPHOMA, RENAL CELL CA LT KIDNEY, TRANSITIONAL CELL CA RT KIDNEY, AAA History of Any Multi-Drug Resistant Organisms: None Reported Past Surgical History: Tonsillectomy Additional Past Surgical History / Comment(s): skin cancers removed, uvulectomy & surg. for sleep apnea, COLONOSCOPY polyp removed benign, EPIDURAL INJECTIONS, BRONCHOSCOPY, CYSTOSCOPY, LT KIDNEY NEEDLE BX, cataract removal, had right kidney biopsy and lazer of tumors to the right kidney and bladder Past Anesthesia/Blood Transfusion Reactions: No Reported Reaction Past Psychological History: No Psychological Hx Reported Smoking Status: Former smoker Past Alcohol Use History: Occasional, Rare Additional Past Alcohol Use History / Comment(s): STARTED SMOKING AT AGE 15 QUIT DEC 20 2019, SMOKED 1PPD Past Drug Use History: None Reported - Past Family History Sister(s) Family Medical History: Cancer Additional Family Medical History / Comment(s): LUNG CANCER Brother(s) Family Medical History: Cancer Additional Family Medical History / Comment(s): PROSTATE CANCER x3 Father Additional Family Medical History / Comment(s): parkinsons along with a brother Medications and Allergies Home Medications Medication Instructions Recorded Confirmed Type Atorvastatin [Lipitor] 40 mg PO HS 12/09/19 03/30/23 History Tamsulosin [Flomax] 0.4 mg PO HS 12/09/19 03/30/23 History Albuterol Sulfate [Albuterol 1 - 2 puff PO Q4-6H PRN 05/07/20 03/30/23 History Sulfate Hfa] Fluticasone Nasal [place] [Flonase 2 spray EA NOSTRIL DAILY 03/30/23 03/30/23 History Nasal [place]] Levothyroxine Sodium [Synthroid] 125 mcg PO DAILY 03/30/23 03/30/23 History Allergies Allergy/AdvReac Type Severity Reaction Status Date / Time No Known Allergies Allergy Verified 03/30/23 11:20 Physical Exam Vitals: Vital Signs Temp Pulse Pulse Resp BP BP Pulse Ox 03/31/23 02:00 98.2 F 75 16 120/68 95 03/31/23 01:23 78 16 03/31/23 00:00 78 16 03/30/23 23:30 98 F 78 16 116/66 94 L 03/30/23 23:03 80 20 112/51 96 03/30/23 22:13 81 03/30/23 22:01 72 03/30/23 20:07 28 H 03/30/23 19:35 80 24 139/60 03/30/23 19:08 89 20 140/59 96 03/30/23 16:41 86 03/30/23 16:28 82 03/30/23 15:23 91 88 H 116/51 95 03/30/23 14:19 90 03/30/23 14:09 86 03/30/23 13:16 87 18 127/67 95 03/30/23 11:40 76 18 128/58 95 03/30/23 11:20 24 03/30/23 11:13 98.1 F 88 24 131/67 97 Intake and Output 03/30/23 03/30/23 03/31/23 14:59 22:59 06:59 Output Total 300 Balance -300 Output: Urine 300 Other: Voiding Method Urinal Weight 74.843 kg 74.843 kg GENERAL EXAM: Alert, 83-year-old white male, fatigued, in no apparent distress. HEAD: Normocephalic and atraumatic EYES: Normal reaction of pupils, equal size. NOSE: Clear with pink turbinates. THROAT: No erythema or exudates. NECK: No masses, no JVD. CHEST: No chest wall deformity. LUNGS: Equal air entry with left lower lobe inspiratory crackles. On 2 L/min nasal cannula. No conversational dyspnea or accessory muscle use.. CVS: S1 and S2 normal with no audible murmur, regular rhythm. No extra heart sounds ABDOMEN: No hepatosplenomegaly, active bowel sounds, no guarding or rigidity. SPINE: No scoliosis or deformity SKIN: No rashes CENTRAL NERVOUS SYSTEM: No focal deficits, tone is normal in all 4 extremities. EXTREMITIES: There is no peripheral edema, clubbing, or cyanosis. Peripheral pulses are intact. Results - Laboratory Findings CBC and BMP: 03/30/23 12:10 03/30/23 12:10 PT/INR, D-dimer PT 10.8 sec (10.0-12.5) 03/30/23 12:10 INR 1.0 (<1.2) 03/30/23 12:10 D-Dimer 1.61 mg/L FEU (<0.60) H 03/30/23 13:18 Abnormal lab findings: Abnormal Labs 03/30/23 03/30/23 03/30/23 12:10 12:10 12:10 RBC 4.12 L Hgb 12.1 L Hct 36.7 L D-Dimer Sodium 133 L AST 138 H ALT 152 H Alkaline Phosphatase 193 H C-Reactive Protein 16.0 H Albumin 3.1 L Procalcitonin 03/30/23 03/30/23 12:10 13:18 RBC Hgb Hct D-Dimer 1.61 H Sodium AST ALT Alkaline Phosphatase C-Reactive Protein Albumin Procalcitonin 0.14 H - Diagnostic Findings Chest x-ray: image reviewed CT scan - chest: image reviewed Assessment and Plan Assessment: Acute hypoxemic respiratory failure, possibly secondary to multifocal community- acquired pneumonia. Chest CTA on thence admission redemonstrates diffuse multifocal airspace disease with groundglass opacities concerning for possible atypical pneumonia/infectious process, immunotherapy induced pneumonitis, pulmonary fibrosis, among other etiology. This is superimposed on patient's left upper lung nodule and known mediastinal lymphadenopathy. Procalcitonin level is 0.14. 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 History of left upper lung nodule, previously positive for atypical lymphoid reticular infiltrates compatible with non-Hodgkin's lymphoma. Chronic obstructive pulmonary disease, stable Mild transaminitis, possibly related to Keytruda History of hyperlipidemia History of hypothyroidism History of infrarenal AAA, status post percutaneous endovascular aortic repair Remote history of tobacco dependence Plan: Patient's medications, labs, imaging reviewed Continue supplemental oxygen to maintain SpO2 92% or greater Continue Duo-nebs around the clock Broad spectrum antibiotics added in the form of vancomycin and cefepime. Procalcitonin level mildly elevated at 0.14. If no improvement, patient may require bronchoscopy with BAL in the future. Consult oncology We will continue to follow, and additional recommendations are forthcoming I have personally seen and examined the patient, performed the documentation and the assessment and plan as written. Number of minutes spent on the visit:20 Time with Patient: Greater than 30
[2023-03-31] MEDS ORDERED: AZITHROMYCIN 500 MG TAB PO SCH (09:00)
--- NOTE | 2023-03-31 10:43 | P.CONS ---
History of Present Illness - Reason for Consult Consult date: 03/31/23 urothelial carcinoma, on IO treatment Requesting physician: Chi Golden - Chief Complaint weakness, SOB - History of Present Illness Mr. Sy is a male patient of Dr. Green diagnosed with urothelial carcinoma in 2021. Workup began from a chest x-ray done 12/26/2021 showing a 2.5 cm nodule opacity in the left midlung. Patient had previously had COVID and a prolonged u pper respiratory tract infection so CT chest was done 12/30/2021. This showed a lobulated mass, left upper lobe, 2.2 x 1.8 cm with some air bronchograms. There was evidence of COPD, multiple calcified lymph nodes, incidentally mass was noted on the left kidney measuring 5.9 cm with some abnormal soft tissue attenuation in the right renal pelvis and proximal ureter. PET scan showed concentric left posterior esophageal wall thickening 9 mm, SUV 2.8. Left upper lobe nodule SUV of 1.6. Bilateral hilar nodularity measuring 2.2 cm on the left and 2 cm on the right, SUV 2.2 and 1.7 respectively. Left renal mass SUV of 2.4, right renal pelvis SUV of 6. Patient had bronchoscopy with biopsy , pathology showed B cell non-Hodgkin's lymphoma. He was referred to urology and had cystoscopy of right renal mass 02/27/2022, biopsies showing low- grade papillary urothelial carcinoma, no invasion into underlying lamina propria. Biopsy of the left renal mass 03/12/2022 showed a separate primary, clear-cell renal cell carcinoma grade 2. 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 Recommended observation for low-grade lymphoma that was asymptomatic. 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 Patient was reluctant for cystocopic intervention, as it was felt it would be technically very difficult, so he opted for treatment with Keytruda 06/29/2022, he has had 14 cycles, last treatment 03/17/2023. He had stent placement for AAA 08/08. He had a laparoscopic resection of transitional cell tumor 09/07 at [facility]. Additional cyst topic intervention with resection and ablation of residual dise ase 01/08. There were some additional areas of superficial malignant changes seen in the ureter and bladder that were resected. Repeat cyst topic procedure was performed last week. The patient has been having progressive shortness of breath since the beginning of 03/11, associated with intermittent cough, decreased appetite, increasing fatigue and some occasional sweats. He has had some rare, subjective fevers. CT CAP 03/04/23, as well as CTA on 03/17/23 showed bilateral patchy infiltrates, with some borderline mediastinal lymph nodes. Patient was placed on a steroid taper and antibiotics. He initially improved. Last week he had his renal biopsy and ureteral washings and he reports that it has been a progressive "downhill" since the procedure. He saw Dr. Null yesterday for catheter removal who noted worsening shortness of breath so, patient was sent to the ER to be assessed. He reports today that he feels much better than on admit. He has been seen by pulmonary, started on steroids and antibiotics. CTA of the chest was negative for PE, pulmonary fibrosis versus an atypical pneumonia. Patient denies any fever, he is expectorating mostly clear sputum, denies hemoptysis, nausea or vomiting, abdominal pain, acute changes in bowel or bladder habits, no swelling, rashes or pain to report. He is feeling weak in general but, as stated above, better today. Review of Systems 14 point ROS is neg except as stated in HPI Past Medical History Past Medical History: Asthma, Cancer, COPD, Hyperlipidemia, Osteoarthritis (OA), Prostate Disorder, Sleep Apnea/CPAP/BIPAP Additional Past Medical History / Comment(s): skin cancer, uses CPAP, positive cologuard, HEPATITIS A TEEN , NON HODGKIN'S LYMPHOMA, RENAL CELL CA LT KIDNEY, TRANSITIONAL CELL CA RT KIDNEY, AAA History of Any Multi-Drug Resistant Organisms: None Reported Past Surgical History: Tonsillectomy Additional Past Surgical History / Comment(s): skin cancers removed, uvulectomy & surg. for sleep apnea, COLONOSCOPY polyp removed benign, EPIDURAL INJECTIONS, BRONCHOSCOPY, CYSTOSCOPY, LT KIDNEY NEEDLE BX, cataract removal, had right kidney biopsy and lazer of tumors to the right kidney and bladder Past Anesthesia/Blood Transfusion Reactions: No Reported Reaction Past Psychological History: No Psychological Hx Reported Smoking Status: Former smoker Past Alcohol Use History: Occasional, Rare Additional Past Alcohol Use History / Comment(s): STARTED SMOKING AT AGE 15 QUIT DEC 20 2019, SMOKED 1PPD Past Drug Use History: None Reported - Past Family History Sister(s) Family Medical History: Cancer Additional Family Medical History / Comment(s): LUNG CANCER Brother(s) Family Medical History: Cancer Additional Family Medical History / Comment(s): PROSTATE CANCER x3 Father Additional Family Medical History / Comment(s): parkinsons along with a brother Medications and Allergies Home Medications Medication Instructions Recorded Confirmed Type Atorvastatin [Lipitor] 40 mg PO HS 12/09/19 03/30/23 History Tamsulosin [Flomax] 0.4 mg PO HS 12/09/19 03/30/23 History Albuterol Sulfate [Albuterol 1 - 2 puff PO Q4-6H PRN 05/07/20 03/30/23 History Sulfate Hfa] Fluticasone Nasal [place] [Flonase 2 spray EA NOSTRIL DAILY 03/30/23 03/30/23 History Nasal [place]] Levothyroxine Sodium [Synthroid] 125 mcg PO DAILY 03/30/23 03/30/23 History Allergies Allergy/AdvReac Type Severity Reaction Status Date / Time No Known Allergies Allergy Verified 03/30/23 11:20 Physical Exam Vitals: Vital Signs Temp Pulse Pulse Resp BP BP Pulse Ox 03/31/23 07:50 97.5 F L 92 20 131/54 91 L 03/31/23 07:41 84 03/31/23 07:28 84 03/31/23 02:00 98.2 F 75 16 120/68 95 03/31/23 01:23 78 16 03/31/23 00:00 78 16 03/30/23 23:30 98 F 78 16 116/66 94 L 03/30/23 23:03 80 20 112/51 96 03/30/23 22:13 81 03/30/23 22:01 72 03/30/23 20:07 28 H 03/30/23 19:35 80 24 139/60 03/30/23 19:08 89 20 140/59 96 03/30/23 16:41 86 03/30/23 16:28 82 03/30/23 15:23 91 88 H 116/51 95 03/30/23 14:19 90 03/30/23 14:09 86 03/30/23 13:16 87 18 127/67 95 03/30/23 11:40 76 18 128/58 95 03/30/23 11:20 24 03/30/23 11:13 98.1 F 88 24 131/67 97 Intake and Output 03/30/23 03/31/23 03/31/23 22:59 06:59 14:59 Output Total 300 400 Balance -300 -400 Output: Urine 300 400 Other: Voiding Method Urinal Urinal # Voids 1 Weight 74.843 kg - Constitutional General appearance: average body habitus, cooperative, no acute distress - EENT Eyes: anicteric sclerae, EOMI ENT: hearing grossly normal, normal oropharynx - Neck Neck: no lymphadenopathy - Respiratory Respiratory: bilateral: diminished - Cardiovascular Rhythm: regular Heart sounds: normal: S1, S2 Abnormal Heart Sounds: no systolic murmur, no diastolic murmur, no rub, no S3 Gallop, no S4 Gallop, no click, no other leg Peripheral Edema: bilateral: None - Gastrointestinal General gastrointestinal: no absent bowel sounds, no decreased bowel sounds, no distended, no hepatomegaly, no hyperactive bowel sounds, normal bowel sounds, no organomegaly, no rigid, no scaphoid, soft, no splenomegaly, no tenderness, no umbilical hernia, no ventral hernia - Integumentary Integumentary: normal - Neurologic Neurologic: CNII-XII intact - Musculoskeletal Musculoskeletal: generalized weakness, strength equal bilaterally - Psychiatric Psychiatric: A&O x's 3, appropriate affect, intact judgment & insight Results CBC & Chem 7: 03/30/23 12:10 03/30/23 12:10 Labs: Abnormal Lab Results - Last 24 Hours (Table) 03/30/23 03/30/23 03/30/23 Range/Units 12:10 12:10 12:10 RBC 4.12 L (4.30-5.90) m/uL Hgb 12.1 L (13.0-17.5) gm/dL Hct 36.7 L (39.0-53.0) % D-Dimer (<0.60) mg/L FEU Sodium 133 L (137-145) mmol/L AST 138 H (17-59) U/L ALT 152 H (4-49) U/L Alkaline Phosphatase 193 H (38-126) U/L C-Reactive Protein 16.0 H (<1.0) mg/dL Albumin 3.1 L (3.5-5.0) g/dL Procalcitonin (0.02-0.09) ng/mL 03/30/23 03/30/23 Range/Units 12:10 13:18 RBC (4.30-5.90) m/uL Hgb (13.0-17.5) gm/dL Hct (39.0-53.0) % D-Dimer 1.61 H (<0.60) mg/L FEU Sodium (137-145) mmol/L AST (17-59) U/L ALT (4-49) U/L Alkaline Phosphatase (38-126) U/L C-Reactive Protein (<1.0) mg/dL Albumin (3.5-5.0) g/dL Procalcitonin 0.14 H (0.02-0.09) ng/mL Microbiology - Last 24 Hours (Table) 03/30/23 14:20 Gram Stain - Preliminary Sputum CT scan - chest: report reviewed Assessment and Plan (1) Multifocal pneumonia Current Visit: Yes Status: Acute Priority: High Code(s): J18.9 - PNEUMONIA, UNSPECIFIED ORGANISM SNOMED Code(s): 785829137 (2) Urothelial carcinoma Current Visit: Yes Status: Chronic Priority: Medium Code(s): C68.9 - MALIGNANT NEOPLASM OF URINARY ORGAN, UNSPECIFIED SNOMED Code(s): 241511695 Plan: Multifocal pneumonia versus pneumonitis from immunotherapy -It was discussed with the patient that quite possibly his respiratory symptoms are side effect of immunotherapy. Patient improved while on steroids then, his symptoms returned after completing. -Patient stated that pulmonary offered biopsy, once he is more stable, to see if differentiation between pneumonia and inflammation can be determined. If the biopsy shows inflammation it can be difficult to determine exact etiology, if inflammation from infection or inflammation from immunotherapy. If an organism is found though, then pneumonia can be confirmed. Will see how patient does and follow with pulmonary recs -It was discussed previously with the patient concerns that his respiratory symptoms may be related to immunotherapy. Plan for right now is to hold treatment, complete a steroid taper and reassess patient. Patient is agreeable with this plan. Follow-up plan with Dr. Alexis is in the discharge plan. -Defer treatment of the same to pulmonary. Urothelial carcinoma -Patient has been on immunotherapy with Keytruda for the same. Status post 14 cycles, last treatment given 03/17/2023 -Recent biopsy. Will review pathology. Will discuss results and options of care with patient History of non-Hodgkin's lymphoma and marginal zone lymphoma -Asymptomatic, no treatment, ongoing monitoring. Doctor attests: I performed a history and physical examination of this patient, developed impression and plan of care. Discussed with dictator. I agree with dictators note, documented as a scribe.
[2023-03-31] MEDS ORDERED: DEXTROSE 50% SYRINGE 50 ML IVP PRN ×2 (11:13)
[2023-03-31] MEDS: ENOXAPARIN 40 MG/0.4 ML SYRINGE SQ SCH (11:36)
[2023-03-31] MEDS: CEFEPIME 2 GM in SODIUM CHLORIDE 0.9% 100 ML IVPB SCH (11:37)
[2023-03-31] MEDS: VANCOMYCIN 1,250 MG in SODIUM CHLORIDE 0.9% 250 ML IVPB SCH (11:38)
[2023-03-31 11:53] LABS: Glucose,Whole Blood 149 mg/dL (70-110)
[2023-03-31] MEDS: INSULIN ASPART (NovoLOG) 100 UNIT/ML VIAL SQ SCH (11:56)
--- NOTE | 2023-03-31 12:16 | P.HPIM ---
History of Present Illness H&P Date: 03/31/23 History of present illness; Patient is a 83-year-old white male with past medical history significant for renal cancer, left upper lung nodule, COPD, hypothyroidism, hyperlipidemia, and remote tobacco smokerwho presented to the ER for shortness of breath and generalized weakness. Patient is currently undergoing chemotherapy for renal cell carcinoma in which he is currently undergoing Keytruda treatments every [address] Alexis. Patient stated that he was treated for pneumonia a couple of weeks ago with antibiotics and steroids. Yesterday patient presented at his urologist office where he was found to profoundly weak and short of breath. Patient has been noticing that he was more short of breath and coughing. There was no complaint of fever or chills. There was no complaint of chest pain. Patient was clinical loss of appetite and lethargy. There was no complaint of swelling of feet. Denies any palpitations. There was no complaint of orthopnea or PND. Patient urologist told him to come to the ER immediately. Initial lab work done in the ER showed WBC 9.5, hemoglobin 12.1, platelet count 371, sodium 133, potassium 4.6, BUN 14, creatinine 0.84 AST 138, ALT 152, alk phos 193, CRP 16, proBNP 280 Influenza A not detected Influenza B not detected RSV not detected COVID-19 not detected EKG done in the ER showed heart rate of 78, no ST segment elevation or depression seen, no T-wave inversions seen. Chest x-ray done in the ER showed multifocal airspace opacities concerning for pneumonia, airspace opacities within the right lung appear new from prior CT chest with contrast negative for PE, showed chronic scattered lung findings present bilaterally Patient admitted to internal medicine service REVIEW OF SYSTEMS: CONSTITUTIONAL: As mentioned above HEENT: No recent visual problems or hearing problems. Denied any sore throat. CARDIOVASCULAR: No chest pain, orthopnea, PND, no palpitations, no syncope. PULMONARY: As mentioned above GASTROINTESTINAL: No diarrhea, no nausea, no vomiting, no abdominal pain. NEUROLOGICAL: No headaches, no weakness, no numbness. HEMATOLOGICAL: Denies any bleeding or petechiae. GENITOURINARY: Denies any burning micturition, frequency, or urgency. MUSCULOSKELETAL/RHEUMATOLOGICAL: Denies any joint pain, swelling, or any muscle pain. ENDOCRINE: Denies any polyuria or polydipsia. The rest of the 14-point review of systems is negative. PHYSICAL EXAMINATION: GENERAL: The patient is alert and oriented x3, not in any acute distress. Chronically ill looking HEENT: Pupils are round and equally reacting to light. EOMI. No scleral icterus. No conjunctival pallor. Normocephalic, atraumatic. No pharyngeal erythema. No thyromegaly. CARDIOVASCULAR: S1 and S2 present. No murmurs, rubs, or gallops. PULMONARY: Coarse breath sounds bilaterally, no wheezing or crackles. ABDOMEN: Soft, nontender, nondistended, normoactive bowel sounds. No palpable organomegaly. MUSCULOSKELETAL: No joint swelling or deformity. EXTREMITIES: No cyanosis, clubbing, or pedal edema. NEUROLOGICAL: Gross neurological examination did not reveal any focal deficits. SKIN: No rashes. 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 History of left upper lung nodule, previously positive for atypical lymphoid reticular infiltrates compatible with non-Hodgkin's lymphoma. Chronic obstructive pulmonary disease History of infrarenal AAA, status post percutaneous endovascular aortic repair Monitor vital signs Monitor CBC Monitor CMP Continue telemetry monitoring Follow-up blood cultures Continue breathing treatments Continue IV cefepime Continue IV Solu-Medrol Pulmonology consulted Hematology oncology consult ID consulted Labs and medication were reviewed.. Continue same treatment. Continue with symptomatic treatment. Resume home medication. Monitor labs and vitals. DVT and GI prophylaxis. Further recommendations as per clinical course of the patient Dictation was produced using [employer] dictation software. please excuse any grammatical, word or spelling errors. Past Medical History Past Medical History: Asthma, Cancer, COPD, Hyperlipidemia, Osteoarthritis (OA), Prostate Disorder, Sleep Apnea/CPAP/BIPAP Additional Past Medical History / Comment(s): skin cancer, uses CPAP, positive cologuard, HEPATITIS A TEEN , NON HODGKIN'S LYMPHOMA, RENAL CELL CA LT KIDNEY, TRANSITIONAL CELL CA RT KIDNEY, AAA History of Any Multi-Drug Resistant Organisms: None Reported Past Surgical History: Tonsillectomy Additional Past Surgical History / Comment(s): skin cancers removed, uvulectomy & surg. for sleep apnea, COLONOSCOPY polyp removed benign, EPIDURAL INJECTIONS, BRONCHOSCOPY, CYSTOSCOPY, LT KIDNEY NEEDLE BX, cataract removal, had right kidney biopsy and lazer of tumors to the right kidney and bladder Past Anesthesia/Blood Transfusion Reactions: No Reported Reaction Past Psychological History: No Psychological Hx Reported Smoking Status: Former smoker Past Alcohol Use History: Occasional, Rare Additional Past Alcohol Use History / Comment(s): STARTED SMOKING AT AGE 15 QUIT DEC 20 2019, SMOKED 1PPD Past Drug Use History: None Reported - Past Family History Sister(s) Family Medical History: Cancer Additional Family Medical History / Comment(s): LUNG CANCER Brother(s) Family Medical History: Cancer Additional Family Medical History / Comment(s): PROSTATE CANCER x3 Father Additional Family Medical History / Comment(s): parkinsons along with a brother Medications and Allergies Home Medications Medication Instructions Recorded Confirmed Type Atorvastatin [Lipitor] 40 mg PO HS 12/09/19 03/30/23 History Tamsulosin [Flomax] 0.4 mg PO HS 12/09/19 03/30/23 History Albuterol Sulfate [Albuterol 1 - 2 puff PO Q4-6H PRN 05/07/20 03/30/23 History Sulfate Hfa] Fluticasone Nasal [place] [Flonase 2 spray EA NOSTRIL DAILY 03/30/23 03/30/23 History Nasal [place]] Levothyroxine Sodium [Synthroid] 125 mcg PO DAILY 03/30/23 03/30/23 History Allergies Allergy/AdvReac Type Severity Reaction Status Date / Time No Known Allergies Allergy Verified 03/30/23 11:20 Physical Exam Vitals: Vital Signs Temp Pulse Pulse Resp BP BP Pulse Ox 03/31/23 07:50 97.5 F L 92 20 131/54 91 L 03/31/23 07:41 84 03/31/23 07:28 84 03/31/23 02:00 98.2 F 75 16 120/68 95 03/31/23 01:23 78 16 03/31/23 00:00 78 16 03/30/23 23:30 98 F 78 16 116/66 94 L 03/30/23 23:03 80 20 112/51 96 03/30/23 22:13 81 03/30/23 22:01 72 03/30/23 20:07 28 H 03/30/23 19:35 80 24 139/60 03/30/23 19:08 89 20 140/59 96 03/30/23 16:41 86 03/30/23 16:28 82 03/30/23 15:23 91 88 H 116/51 95 03/30/23 14:19 90 03/30/23 14:09 86 03/30/23 13:16 87 18 127/67 95 03/30/23 11:40 76 18 128/58 95 03/30/23 11:20 24 03/30/23 11:13 98.1 F 88 24 131/67 97 Intake and Output 03/30/23 03/31/23 03/31/23 22:59 06:59 14:59 Output Total 300 400 Balance -300 -400 Output: Urine 300 400 Other: Voiding Method Urinal Urinal # Voids 1 Weight 74.843 kg Results CBC & Chem 7: 03/30/23 12:10 03/30/23 12:10 Labs: Abnormal Lab Results - Last 24 Hours (Table) 03/30/23 03/30/23 03/30/23 Range/Units 12:10 12:10 12:10 RBC 4.12 L (4.30-5.90) m/uL Hgb 12.1 L (13.0-17.5) gm/dL Hct 36.7 L (39.0-53.0) % D-Dimer (<0.60) mg/L FEU Sodium 133 L (137-145) mmol/L AST 138 H (17-59) U/L ALT 152 H (4-49) U/L Alkaline Phosphatase 193 H (38-126) U/L C-Reactive Protein 16.0 H (<1.0) mg/dL Albumin 3.1 L (3.5-5.0) g/dL Procalcitonin (0.02-0.09) ng/mL 03/30/23 03/30/23 Range/Units 12:10 13:18 RBC (4.30-5.90) m/uL Hgb (13.0-17.5) gm/dL Hct (39.0-53.0) % D-Dimer 1.61 H (<0.60) mg/L FEU Sodium (137-145) mmol/L AST (17-59) U/L ALT (4-49) U/L Alkaline Phosphatase (38-126) U/L C-Reactive Protein (<1.0) mg/dL Albumin (3.5-5.0) g/dL Procalcitonin 0.14 H (0.02-0.09) ng/mL Microbiology - Last 24 Hours (Table) 03/30/23 14:20 Gram Stain - Preliminary Sputum Thrombosis Risk Factor Assmnt - Choose All That Apply Any of the Below Risk Factors Present?: Yes Each Factor Represents 1 point: Serious lung disease incl. pneumonia (< 1month) Each Risk Factor Represents 2 Points: Malignancy Each Risk Factor Represents 3 Points: Age 75 years or older Thrombosis Risk Factor Assessment Total Risk Factor Score: 6 Thrombosis Risk Factor Assessment Level: High Risk
[2023-03-31] MEDS: methylPREDNISolone SOD SUCCI 125 MG/2 ML VIAL IV SCH (12:36)
[2023-03-31] MEDS: FLUTICASONE 50MCG/SPRAY NASAL 16GM EA NOSTRIL SCH (13:07)
[2023-03-31 17:20] LABS: Glucose,Whole Blood 306 mg/dL (70-110)
[2023-03-31 20:28] LABS: Glucose,Whole Blood 260 mg/dL (70-110)
--- NOTE | 2023-03-31 20:37 | P.CONS ---
History of Present Illness - Reason for Consult Consult date: 03/31/23 Pneumonia, sepsis Requesting physician: Alejandro Mclean - Chief Complaint Increasing shortness of breath x few days - History of Present Illness Patient is a 83-year-old male with a past medical history significant for hypertension COPD non-Hodgkin lymphoma and also have a history of renal cancer, asthma patient presented to hospital with weakness coughing and shortn ess of breath apparently the patient has been eval by his oncologist about 3 weeks ago and the patient has been treated with a course of steroids and antibiotics patient did have some improvement and subsequently did have a biopsy of his kidneys and the patient did follow-up with the urologist yesterday and the day of presentation the hospital looking at his overall clinical condition patient was noted to be very weak and have significant shortness of breath for the patient was advised to go to the hospital patient be complaining of weakness shortness of breath and also have a cough mild to moderate intensity with occasional sputum production denies any hemoptysis patient did have some nausea but no vomiting no abdominal pain or any diarrhea no urinary symptoms on presentation to the hospital the patient was afebrile and no fever have recorded subsequently patient was not tachycardic hypotensive patient was mildly hypoxic currently on 2 L nasal cannula oxygen white count was 9.5 creatinine 0.84 liver isms are elevated influenza RSV COVID testing was negative Pro-Dio 0.14 blood and sputum culture average currently pending patient did have a chest x-ray multifocal airspace opacity concerning for pneumonia patient also have a CT angiogram of the chest no PE chronic scattered lung findings present bilaterally concerning for pulmonary fibrosis atypical pneumonia or neoplasm patient was admitted to the hospital started on cefepime and vancomycin initially patient was on Rocephin and Zithromax infectious disease was consulted for further management of antibiotic therapy Review of Systems Positive point and negatives has been mentioned in the HPI, complete review of systems was performed and all other systems are negative Past Medical History Past Medical History: Asthma, Cancer, COPD, Hyperlipidemia, Osteoarthritis (OA), Prostate Disorder, Sleep Apnea/CPAP/BIPAP Additional Past Medical History / Comment(s): skin cancer, uses CPAP, positive cologuard, HEPATITIS A TEEN , NON HODGKIN'S LYMPHOMA, RENAL CELL CA LT KIDNEY, TRANSITIONAL CELL CA RT KIDNEY, AAA History of Any Multi-Drug Resistant Organisms: None Reported Past Surgical History: Tonsillectomy Additional Past Surgical History / Comment(s): skin cancers removed, uvulectomy & surg. for sleep apnea, COLONOSCOPY polyp removed benign, EPIDURAL INJECTIONS, BRONCHOSCOPY, CYSTOSCOPY, LT KIDNEY NEEDLE BX, cataract removal, had right kidney biopsy and lazer of tumors to the right kidney and bladder Past Anesthesia/Blood Transfusion Reactions: No Reported Reaction Past Psychological History: No Psychological Hx Reported Smoking Status: Former smoker Past Alcohol Use History: Occasional, Rare Additional Past Alcohol Use History / Comment(s): STARTED SMOKING AT AGE 15 QUIT DEC 20 2019, SMOKED 1PPD Past Drug Use History: None Reported - Past Family History Sister(s) Family Medical History: Cancer Additional Family Medical History / Comment(s): LUNG CANCER Brother(s) Family Medical History: Cancer Additional Family Medical History / Comment(s): PROSTATE CANCER x3 Father Additional Family Medical History / Comment(s): parkinsons along with a brother Medications and Allergies Home Medications Medication Instructions Recorded Confirmed Type Tamsulosin [Flomax] 0.4 mg PO HS 12/09/19 03/30/23 History Albuterol Sulfate [Albuterol 1 - 2 puff PO Q4-6H PRN 05/07/20 03/30/23 History Sulfate Hfa] Fluticasone Nasal [place] [Flonase 2 spray EA NOSTRIL DAILY 03/30/23 03/30/23 History Nasal [place]] Levothyroxine Sodium [Synthroid] 125 mcg PO DAILY 03/30/23 03/30/23 History Albuterol Sulfate [Ventolin HFA] 2 puff INHALATION Q6H PRN #1 each 04/03/23 Rx cefUROXime axetiL [Cefuroxime] 500 mg PO BID 3 Days #6 tab 04/03/23 Rx guaiFENesin [Mucinex] 600 mg PO Q12HR 7 Days #14 tab 04/03/23 Rx predniSONE 10 mg PO DAILY 8 Days #20 tab 04/03/23 Rx Allergies Allergy/AdvReac Type Severity Reaction Status Date / Time No Known Allergies Allergy Verified 03/30/23 11:20 Physical Exam Vitals: Vital Signs Temp Pulse Pulse Resp BP BP Pulse Ox 03/31/23 07:50 97.5 F L 92 20 131/54 91 L 03/31/23 07:41 84 03/31/23 07:28 84 03/31/23 02:00 98.2 F 75 16 120/68 95 03/31/23 01:23 78 16 03/31/23 00:00 78 16 03/30/23 23:30 98 F 78 16 116/66 94 L 03/30/23 23:03 80 20 112/51 96 03/30/23 22:13 81 03/30/23 22:01 72 03/30/23 20:07 28 H 03/30/23 19:35 80 24 139/60 03/30/23 19:08 89 20 140/59 96 03/30/23 16:41 86 03/30/23 16:28 82 03/30/23 15:23 91 88 H 116/51 95 03/30/23 14:19 90 03/30/23 14:09 86 03/30/23 13:16 87 18 127/67 95 03/30/23 11:40 76 18 128/58 95 03/30/23 11:20 24 03/30/23 11:13 98.1 F 88 24 131/67 97 Intake and Output 03/30/23 03/31/23 03/31/23 22:59 06:59 14:59 Output Total 300 400 Balance -300 -400 Output: Urine 300 400 Other: Voiding Method Urinal Urinal # Voids 1 Weight 74.843 kg GENERAL DESCRIPTION: Elderly male lying in bed, no distress. No tachypnea or accessory muscle of respiration use. HEENT: Shows Pallor , no scleral icterus. Oral mucous membrane is dry. No pharyngeal erythema or thrush NECK: Trachea central, no thyromegaly. LUNGS: Unlabored breathing. Coarse breath sounds bilaterally HEART: S1, S2, regular rate and rhythm. No loud murmur ABDOMEN: Soft, no tenderness , guarding or rigidity, no organomegaly EXTREMITIES: No edema of feet. SKIN: No rash, no masses palpable. NEUROLOGICAL: The patient is awake, alert, oriented x3, mood and affect normal. Results CBC & Chem 7: 04/03/23 05:37 04/03/23 05:37 Labs: Abnormal Lab Results - Last 24 Hours (Table) 03/30/23 03/30/23 03/30/23 Range/Units 12:10 12:10 12:10 RBC 4.12 L (4.30-5.90) m/uL Hgb 12.1 L (13.0-17.5) gm/dL Hct 36.7 L (39.0-53.0) % D-Dimer (<0.60) mg/L FEU Sodium 133 L (137-145) mmol/L AST 138 H (17-59) U/L ALT 152 H (4-49) U/L Alkaline Phosphatase 193 H (38-126) U/L C-Reactive Protein 16.0 H (<1.0) mg/dL Albumin 3.1 L (3.5-5.0) g/dL Procalcitonin (0.02-0.09) ng/mL 03/30/23 03/30/23 Range/Units 12:10 13:18 RBC (4.30-5.90) m/uL Hgb (13.0-17.5) gm/dL Hct (39.0-53.0) % D-Dimer 1.61 H (<0.60) mg/L FEU Sodium (137-145) mmol/L AST (17-59) U/L ALT (4-49) U/L Alkaline Phosphatase (38-126) U/L C-Reactive Protein (<1.0) mg/dL Albumin (3.5-5.0) g/dL Procalcitonin 0.14 H (0.02-0.09) ng/mL Microbiology - Last 24 Hours (Table) 03/30/23 14:20 Gram Stain - Preliminary Sputum Assessment and Plan (1) Leukocytosis Current Visit: Yes Status: Acute Code(s): D72.829 - ELEVATED WHITE BLOOD CELL COUNT, UNSPECIFIED SNOMED Code(s): 962089018 (2) Multifocal pneumonia Current Visit: Yes Status: Acute Code(s): J18.9 - PNEUMONIA, UNSPECIFIED ORGANISM SNOMED Code(s): 799181873 Plan: 1patient presented to hospital with increasing shortness of breath and weakness which is likely multifactorial in this patient currently on immunotherapy patient not running any fever or elevated white count with a question of drug effect underlying bacterial pneumonia less likely but not excluded 2we will check his inflammatory markers urine for Legionella antigen and wait for the sputum culture to finalize 3continue with cefepime and vancomycin while watching his kidney function closely along with steroids We will follow on clinical condition and cultures to further adjust medication if needed Thank you for this consultation we will follow the patient along with you Dictation was produced using [employer] dictation software. please excuse any grammatical, word or spelling errors. Time with Patient: Greater than 30
[2023-04-01 05:54] LABS: ALT 250 U/L (4-49); AST 219 U/L (17-59); African American GFR (CKD) >90 (>60 ml/min/1.73 sqM); Albumin 3.1 g/dL (3.5-5.0); Alkaline Phosphatase 174 U/L (38-126); Anion Gap 3 mmol/L; Blood Urea Nitrogen 23 mg/dL (9-20); Carbon Dioxide 24 mmol/L (22-30); Chloride 109 mmol/L (98-107); Globulin 3.1 g/dL; Glucose 137 mg/dL (74-99); Non-African American GFR(CKD) 82 (>60 ml/min/1.73 sqM); Potassium 4.5 mmol/L (3.5-5.1); Sodium 136 mmol/L (137-145); Total Bilirubin 0.3 mg/dL (0.2-1.3); Total Protein 6.2 g/dL (6.3-8.2)
[2023-04-01 07:18] LABS: Glucose,Whole Blood 138 mg/dL (70-110)
[2023-04-01 09:03] LABS: Basophils # (A) 0.02 X 10*3/uL (0.00-0.10); Basophils % (A) 0.1 %; Eosinophils # (A) 0 X 10*3/uL (0.04-0.35); Eosinophils % (A) 0 %; HCT 34.2 % (39.6-50.0); HGB 10.9 g/dL (13.0-17.0); Lymphocytes # (A) 0.99 X 10*3/uL (0.90-5.00); MCH 28.4 pg (27.0-32.0); MCHC 31.9 g/dL (32.0-37.0); MCV 89.1 FL (80.0-97.0); Mean Platelet Volume 9.1 FL (9.5-12.2); Monocytes # (A) 0.51 X 10*3/uL (0.20-1.00); Monocytes % (A) 3.1 %; NRBC Per 100 WBC 0 X 10*3/uL (0.00-0.01); Neutrophils % (A) 90.2 %; Platelet Count 444 X 10*3/uL (140-440); RBC 3.84 X 10*6/uL (4.40-5.60); RDW 13.5 % (11.5-14.5); WBC 16.62 X 10*3/uL (4.50-10.00)
--- NOTE | 2023-04-01 11:42 | P.PN ---
Subjective Progress Note Date: 04/01/23 Principal diagnosis: Reason for follow-up is abnormal CT question of pneumonia Patient is a 83-year-old male with a past medical history significant for hypertension COPD non-Hodgkin lymphoma and also have a history of renal cancer for the patient has been on Keytruda, presented to hospital with increasing shortness of breath and weakness symptoms going on for about 3-week before presentation to the hospital CT did shows scattered multifocal infiltrate concerning for possible atypical infection prompting this infectious disease consultation. On today's evaluation that is 04/01/2023,the patient denies any fever or any chills, patient is breathing slightly comfortably on 2 L nasal cannula oxygen, the patient denies chest pain still complaining of some cough with occasional sputum production, patient denies abdominal pain, no nausea vomiting or diarrhea. Patient white count is up to 16.62, creatinine 0.81 procalcitonin 0.14 blood sputum cultures pending Objective - Vital Signs Vital signs: Vital Signs Temp 97.8 F 04/01/23 08:00 Pulse 68 04/01/23 11:25 Resp 12 04/01/23 08:00 BP 139/60 04/01/23 08:00 Pulse Ox 93 L 04/01/23 08:00 FiO2 Intake & Output 03/31/23 04/01/23 04/01/23 18:59 06:59 18:59 Output Total 400 500 Balance -400 -500 Output: Urine 400 500 Other: Voiding Method Urinal Toilet Urinal # Voids 3 3 - Exam GENERAL DESCRIPTION: An elderly male lying in bed in no distress RESPIRATORY SYSTEM: Unlabored breathing , coarse breath sounds bilaterally HEART: S1 S2 regular rate and rhythm , ABDOMEN: Soft , no tenderness EXTREMITIES: No edema feet - Labs CBC & Chem 7: 04/01/23 05:19 04/01/23 05:19 Labs: Abnormal Lab Results - Last 24 Hours (Table) 03/31/23 03/31/23 03/31/23 Range/Units 11:52 17:19 20:26 WBC (4.50-10.00) X 10*3/uL RBC (4.40-5.60) X 10*6/uL Hgb (13.0-17.0) g/dL Hct (39.6-50.0) % MCHC (32.0-37.0) g/dL Plt Count (140-440) X 10*3/uL MPV (9.5-12.2) FL Immature Gran # (0.00-0.04) X 10*3/uL Neutrophils # (1.80-7.70) X 10*3/uL Eosinophils # (0.04-0.35) X 10*3/uL Sodium (137-145) mmol/L Chloride (98-107) mmol/L BUN (9-20) mg/dL Glucose (74-99) mg/dL POC Glucose (mg/dL) 149 H 306 H 260 H (70-110) mg/dL Hemoglobin A1c (<=6.0) % AST (17-59) U/L ALT (4-49) U/L Alkaline Phosphatase (38-126) U/L Total Protein (6.3-8.2) g/dL Albumin (3.5-5.0) g/dL 04/01/23 04/01/23 04/01/23 Range/Units 05:19 05:19 05:19 WBC 16.62 H (4.50-10.00) X 10*3/uL RBC 3.84 L (4.40-5.60) X 10*6/uL Hgb 10.9 L (13.0-17.0) g/dL Hct 34.2 L (39.6-50.0) % MCHC 31.9 L (32.0-37.0) g/dL Plt Count 444 H (140-440) X 10*3/uL MPV 9.1 L (9.5-12.2) FL Immature Gran # 0.10 H (0.00-0.04) X 10*3/uL Neutrophils # 15.00 H (1.80-7.70) X 10*3/uL Eosinophils # 0 L (0.04-0.35) X 10*3/uL Sodium 136 L (137-145) mmol/L Chloride 109 H (98-107) mmol/L BUN 23 H (9-20) mg/dL Glucose 137 H (74-99) mg/dL POC Glucose (mg/dL) (70-110) mg/dL Hemoglobin A1c 6.1 H (<=6.0) % AST 219 H (17-59) U/L ALT 250 H (4-49) U/L Alkaline Phosphatase 174 H (38-126) U/L Total Protein 6.2 L (6.3-8.2) g/dL Albumin 3.1 L (3.5-5.0) g/dL 04/01/23 Range/Units 07:16 WBC (4.50-10.00) X 10*3/uL RBC (4.40-5.60) X 10*6/uL Hgb (13.0-17.0) g/dL Hct (39.6-50.0) % MCHC (32.0-37.0) g/dL Plt Count (140-440) X 10*3/uL MPV (9.5-12.2) FL Immature Gran # (0.00-0.04) X 10*3/uL Neutrophils # (1.80-7.70) X 10*3/uL Eosinophils # (0.04-0.35) X 10*3/uL Sodium (137-145) mmol/L Chloride (98-107) mmol/L BUN (9-20) mg/dL Glucose (74-99) mg/dL POC Glucose (mg/dL) 138 H (70-110) mg/dL Hemoglobin A1c (<=6.0) % AST (17-59) U/L ALT (4-49) U/L Alkaline Phosphatase (38-126) U/L Total Protein (6.3-8.2) g/dL Albumin (3.5-5.0) g/dL Microbiology - Last 24 Hours (Table) 03/30/23 14:20 Gram Stain - Final Sputum Sputum Culture - Final 03/30/23 13:18 Blood Culture - Preliminary Blood 03/30/23 13:18 Blood Culture - Preliminary Blood Assessment and Plan (1) Abnormal CT scan, chest Current Visit: Yes Status: Acute Code(s): R93.89 - ABNORMAL FINDINGS ON DX IMAGING OF OTH BODY STRUCTURES SNOMED Code(s): 83211166095291239 (2) Leukocytosis Current Visit: Yes Status: Acute Code(s): D72.829 - ELEVATED WHITE BLOOD CELL COUNT, UNSPECIFIED SNOMED Code(s): 954421901 (3) Multifocal pneumonia Current Visit: Yes Status: Acute Code(s): J18.9 - PNEUMONIA, UNSPECIFIED ORGANISM SNOMED Code(s): 156885686 Plan: 1patient presented to hospital with increasing shortness of breath and weakness which is likely multifactorial in this patient currently on immunotherapy patient not running any fever or elevated white count with a question of drug effect underlying bacterial pneumonia less likely but not excluded 2we will wait for the blood and sputum culture to finalize 3continue with cefepime and vancomycin while waiting for the culture to finalize 4-leukocytosis more likely steroid related and will monitor closely Dictation was produced using [employer] dictation software. please excuse any grammatical, word or spelling errors. Time with Patient: Less than 30
[2023-04-01 11:56] LABS: Glucose,Whole Blood 245 mg/dL (70-110)
--- NOTE | 2023-04-01 12:05 | P.PN ---
Subjective Progress Note Date: 04/01/23 I am seeing this patient in consultation today March 31, 2023 after he was sent in from Dr. Null's office after being found profoundly weak and short of breath. Patient is a 83-year-old white male with past medical history significant for renal cancer, left upper lung nodule, COPD, hypothyroidism, h yperlipidemia, and remote tobacco smoker. Dr. Alexis is his oncologist. Patient has a known left upper lobe lung nodule that was biopsied by Dr. Rubio in 2021, which tested positive for atypical lymphoreticular infiltrates compatible with non-Hodgkin lymphoma. This is currently being monitored. Patient also has a left renal mass positive for renal cell carcinoma in which he is currently undergoing Keytruda treatments every 3 weeks. This treatment is being ongoing since Jun, 2022. 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 For this reason he follows with Dr. Auguste. Patient recently underwent an outpatient urological procedure with Dr. Auguste, he was at the [facility] for follow-up yesterday, and was directed to the emergency room. Patient was profoundly weak and short of breath. Of note, patient was treated for pneumonia outpatient by Dr. Alexis approximately one month ago. A chest CT done at that time showed diffuse multifocal airspace opacities and groundglass opacities concerning for atypical pneumonia/infection. He was given antibiotics and steroids. Patient completed these medications, and initially felt better. After the procedure, however, he became more short of breath. He had associated subjective fevers, mostly at night, and chills during the day. He has had a cough, with mostly clear sputum production. Denies any chest pain. Denies any hemoptysis. Denies any sick contacts. He does endorse reduced appetite and nausea. No vomiting or abdominal pain. Patient is currently lying in bed, on 2 L/min nasal cannula, fairly comfortable. He appears very weak and fatigued, and it is taxing to sit up in bed. Chest CTA on arrival did not show any evidence of pulmonary embolism. It did redemonstrate scattered bilateral infiltrates, s imilar in appearance, correlating for possible pulmonary fibrosis, immunotherapy pneumonitis, or atypical pneumonia. There is also the patient's left upper lobe lung nodule redemonstrated as well as mediastinal lymphadenopathy. CBC on arrival: WBC count 9.5, hemoglobin 12.1, hematocrit 36.7, platelets 371. BMP on arrival: Sodium 133, potassium 4.6, chloride 101, serum bicarb 28, BUN 14, creatinine 0.8, glucose 93. Liver enzymes mildly elevated. NT proBNP 280. Troponin less than 0.012. Procalcitonin level 0.14. Negative for influenza, RSV, COVID. Patient empirically started on antibiotics. Currently afebrile. Vital signs are stable. The patient is seen today April 01, 2023 in follow-up on the regular medical floor. He is currently sitting up in bed. Awake and alert in no acute distress. He states he is feeling quite a bit better today compared to yesterday. No worsening shortness of breath, cough or congestion. He is maintaining good O2 saturations in the 90s on 2 L/min per nasal cannula. He is afebrile. Hemodynamically stable. Sputum culture revealed no growth. Blood cultures are revealing no growth thus far. White count 16.6. Hemoglobin 10.9. Platelets 444. Sodium 136. Potassium 4.5. Bicarb 24. BUN 23. Creatinine 0.81. Glucose 137. AST 219. ALT 250. Alk phos 174. Procalcitonin was 0.14. He is continued on vancomycin and cefepime. Remains on DuoNeb ventilations, Solu-Medrol. Lovenox for DVT prophylaxis. Objective - Vital Signs Vital signs: Vital Signs Temp 97.8 F 04/01/23 08:00 Pulse 68 04/01/23 11:25 Resp 12 04/01/23 08:00 BP 139/60 04/01/23 08:00 Pulse Ox 93 L 04/01/23 08:00 FiO2 Intake & Output 03/31/23 04/01/23 04/01/23 18:59 06:59 18:59 Output Total 400 500 Balance -400 -500 Output: Urine 400 500 Other: Voiding Method Urinal Toilet Urinal # Voids 3 3 - Exam GENERAL EXAM: Alert, very pleasant 83-year-old male, on 2 L per nasal cannula, in no apparent distress. HEAD: Normocephalic and atraumatic EYES: Normal reaction of pupils, equal size. NOSE: Clear with pink turbinates. THROAT: No erythema or exudates. NECK: No masses, no JVD. CHEST: No chest wall deformity. LUNGS: Equal air entry with left lower lobe inspiratory crackles. CVS: S1 and S2 normal with no audible murmur, regular rhythm. No extra heart sounds ABDOMEN: No hepatosplenomegaly, active bowel sounds, no guarding or rigidity. SPINE: No scoliosis or deformity SKIN: No rashes CENTRAL NERVOUS SYSTEM: No focal deficits, tone is normal in all 4 extremities. EXTREMITIES: There is no peripheral edema, clubbing, or cyanosis. Peripheral pulses are intact. - Labs CBC & Chem 7: 04/01/23 05:19 04/01/23 05:19 Labs: Abnormal Lab Results - Last 24 Hours (Table) 03/31/23 03/31/23 04/01/23 Range/Units 17:19 20:26 05:19 WBC (4.50-10.00) X 10*3/uL RBC (4.40-5.60) X 10*6/uL Hgb (13.0-17.0) g/dL Hct (39.6-50.0) % MCHC (32.0-37.0) g/dL Plt Count (140-440) X 10*3/uL MPV (9.5-12.2) FL Immature Gran # (0.00-0.04) X 10*3/uL Neutrophils # (1.80-7.70) X 10*3/uL Eosinophils # (0.04-0.35) X 10*3/uL Sodium (137-145) mmol/L Chloride (98-107) mmol/L BUN (9-20) mg/dL Glucose (74-99) mg/dL POC Glucose (mg/dL) 306 H 260 H (70-110) mg/dL Hemoglobin A1c 6.1 H (<=6.0) % AST (17-59) U/L ALT (4-49) U/L Alkaline Phosphatase (38-126) U/L Total Protein (6.3-8.2) g/dL Albumin (3.5-5.0) g/dL 04/01/23 04/01/23 04/01/23 Range/Units 05:19 05:19 07:16 WBC 16.62 H (4.50-10.00) X 10*3/uL RBC 3.84 L (4.40-5.60) X 10*6/uL Hgb 10.9 L (13.0-17.0) g/dL Hct 34.2 L (39.6-50.0) % MCHC 31.9 L (32.0-37.0) g/dL Plt Count 444 H (140-440) X 10*3/uL MPV 9.1 L (9.5-12.2) FL Immature Gran # 0.10 H (0.00-0.04) X 10*3/uL Neutrophils # 15.00 H (1.80-7.70) X 10*3/uL Eosinophils # 0 L (0.04-0.35) X 10*3/uL Sodium 136 L (137-145) mmol/L Chloride 109 H (98-107) mmol/L BUN 23 H (9-20) mg/dL Glucose 137 H (74-99) mg/dL POC Glucose (mg/dL) 138 H (70-110) mg/dL Hemoglobin A1c (<=6.0) % AST 219 H (17-59) U/L ALT 250 H (4-49) U/L Alkaline Phosphatase 174 H (38-126) U/L Total Protein 6.2 L (6.3-8.2) g/dL Albumin 3.1 L (3.5-5.0) g/dL 04/01/23 Range/Units 11:55 WBC (4.50-10.00) X 10*3/uL RBC (4.40-5.60) X 10*6/uL Hgb (13.0-17.0) g/dL Hct (39.6-50.0) % MCHC (32.0-37.0) g/dL Plt Count (140-440) X 10*3/uL MPV (9.5-12.2) FL Immature Gran # (0.00-0.04) X 10*3/uL Neutrophils # (1.80-7.70) X 10*3/uL Eosinophils # (0.04-0.35) X 10*3/uL Sodium (137-145) mmol/L Chloride (98-107) mmol/L BUN (9-20) mg/dL Glucose (74-99) mg/dL POC Glucose (mg/dL) 245 H (70-110) mg/dL Hemoglobin A1c (<=6.0) % AST (17-59) U/L ALT (4-49) U/L Alkaline Phosphatase (38-126) U/L Total Protein (6.3-8.2) g/dL Albumin (3.5-5.0) g/dL Microbiology - Last 24 Hours (Table) 03/30/23 14:20 Gram Stain - Final Sputum Sputum Culture - Final 03/30/23 13:18 Blood Culture - Preliminary Blood 03/30/23 13:18 Blood Culture - Preliminary Blood Assessment and Plan Assessment: Acute hypoxemic respiratory failure, possibly secondary to multifocal community- acquired pneumonia. Chest CTA on thence admission redemonstrates diffuse multifocal airspace disease with groundglass opacities concerning for possible atypical pneumonia/infectious process, immunotherapy induced pneumonitis, pulmonary fibrosis, among other etiology. This is superimposed on patient's left upper lung nodule and known mediastinal lymphadenopathy. Procalcitonin level is 0.14. 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 History of left upper lung nodule, previously positive for atypical lymphoid reticular infiltrates compatible with non-Hodgkin's lymphoma. Chronic obstructive pulmonary disease, stable Mild transaminitis, possibly related to Keytruda History of hyperlipidemia History of hypothyroidism History of infrarenal AAA, status post percutaneous endovascular aortic repair Remote history of tobacco dependence Plan: The patient was seen and evaluated Labs and medications reviewed Currently stable and on 2 L nasal cannula Improved today compared to yesterday Continue the current treatment plan Increase his activity as tolerated We will continue to follow I have personally seen and examined the patient, performed the documentation and the assessment and plan as written. Number of minutes spent on the visit: 10.
--- NOTE | 2023-04-01 13:28 | P.PN ---
Subjective Progress Note Date: 04/01/23 Patient is a 83-year-old white male with past medical history significant for renal cancer, left upper lung nodule, COPD, hypothyroidism, hyperlipidemia, and remote tobacco smokerwho presented to the ER for shortness of breath and generalized weakness. Patient is currently undergoing chemotherapy for renal cell carcinoma in which he is currently undergoing Keytruda treatments every [address] Alexis. Patient stated that he was treated for pneumonia a couple of weeks ago with antibiotics and steroids. Yesterday patient presented at his urologist office where he was found to profoundly weak and short of breath. Patient has been noticing that he was more short of breath and coughing. There was no complaint of fever or chills. There was no complaint of chest pain. Patient was clinical loss of appetite and lethargy. There was no complaint of swelling of feet. Denies any palpitations. There was no complaint of orthopnea or PND. Patient urologist told him to come to the ER immediately. Initial lab work done in the ER showed WBC 9.5, hemoglobin 12.1, platelet count 371, sodium 133, potassium 4.6, BUN 14, creatinine 0.84 AST 138, ALT 152, alk phos 193, CRP 16, proBNP 280 Influenza A not detected Influenza B not detected RSV not detected COVID-19 not detected EKG done in the ER showed heart rate of 78, no ST segment elevation or depression seen, no T-wave inversions seen. Chest x-ray done in the ER showed multifocal airspace opacities concerning for pneumonia, airspace opacities within the right lung appear new from prior CT chest with contrast negative for PE, showed chronic scattered lung findings present bilaterally Patient admitted to internal medicine service 04/01. Patient seen and examined. States breathing has improved, currently on 2 L of oxygen. Blood work done WBC 16.62, hemoglobin 10.9, platelet count 444, sodium 130, potassium 4.5, BUN 23, creatinine 0.81. States he feels 100% better compared to yesterday. No shortness of breath at rest REVIEW OF SYSTEMS: CONSTITUTIONAL: No fever, no malaise,. CARDIOVASCULAR: No chest pain, no palpitations, no syncope. PULMONARY: No shortness of breath, no cough, GASTROINTESTINAL: No diarrhea, no nausea, no vomiting, no abdominal pain. NEUROLOGICAL: No headaches, no weakness, PHYSICAL EXAMINATION: GENERAL: The patient is alert and oriented x3, not in any acute distress. Well developed, well nourished. HEENT: Pupils are round and equally reacting to light. EOMI. No scleral icterus. No conjunctival pallor. Normocephalic, atraumatic. No pharyngeal erythema. No thyromegaly. CARDIOVASCULAR: S1 and S2 present. No murmurs, rubs, or gallops. PULMONARY: Chest is clear to auscultation, no wheezing or crackles. ABDOMEN: Soft, nontender, nondistended, normoactive bowel sounds. No palpable organomegaly. MUSCULOSKELETAL: No joint swelling or deformity. EXTREMITIES: No cyanosis, clubbing, or pedal edema. NEUROLOGICAL: Gross neurological examination did not reveal any focal deficits. SKIN: No rashes. 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 History of left upper lung nodule, previously positive for atypical lymphoid reticular infiltrates compatible with non-Hodgkin's lymphoma. Chronic obstructive pulmonary disease History of infrarenal AAA, status post percutaneous endovascular aortic repair Monitor vital signs Monitor CBC Monitor CMP Continue telemetry monitoring Follow-up blood cultures Continue breathing treatments Continue IV cefepime and vancomycin Continue IV Solu-Medrol DC Lipitor secondary to elevated LFTs Pulmonology following Hematology oncology following, suggested patient's symptoms could be secondary to side effects of immunotherapy, recommend holding off treatment for now ID following GI consulted for elevated LFTs Labs and medication were reviewed.. Continue same treatment. Continue with symptomatic treatment. Resume home medication. Monitor labs and vitals. DVT and GI prophylaxis. Further recommendations as per clinical course of the patient Dictation was produced using [employer] dictation software. please excuse any gra mmatical, word or spelling errors. Objective - Vital Signs Vital signs: Vital Signs Temp 97.8 F 04/01/23 08:00 Pulse 91 04/01/23 08:00 Resp 12 04/01/23 08:00 BP 139/60 04/01/23 08:00 Pulse Ox 93 L 04/01/23 08:00 FiO2 Intake & Output 03/31/23 04/01/23 04/01/23 18:59 06:59 18:59 Output Total 400 500 Balance -400 -500 Output: Urine 400 500 Other: Voiding Method Urinal Toilet Urinal # Voids 3 3 - Labs CBC & Chem 7: 04/01/23 05:19 04/01/23 05:19 Labs: Abnormal Lab Results - Last 24 Hours (Table) 03/31/23 03/31/23 03/31/23 Range/Units 11:52 17:19 20:26 WBC (4.50-10.00) X 10*3/uL RBC (4.40-5.60) X 10*6/uL Hgb (13.0-17.0) g/dL Hct (39.6-50.0) % MCHC (32.0-37.0) g/dL Plt Count (140-440) X 10*3/uL MPV (9.5-12.2) FL Immature Gran # (0.00-0.04) X 10*3/uL Neutrophils # (1.80-7.70) X 10*3/uL Eosinophils # (0.04-0.35) X 10*3/uL Sodium (137-145) mmol/L Chloride (98-107) mmol/L BUN (9-20) mg/dL Glucose (74-99) mg/dL POC Glucose (mg/dL) 149 H 306 H 260 H (70-110) mg/dL Hemoglobin A1c (<=6.0) % AST (17-59) U/L ALT (4-49) U/L Alkaline Phosphatase (38-126) U/L Total Protein (6.3-8.2) g/dL Albumin (3.5-5.0) g/dL 04/01/23 04/01/23 04/01/23 Range/Units 05:19 05:19 05:19 WBC 16.62 H (4.50-10.00) X 10*3/uL RBC 3.84 L (4.40-5.60) X 10*6/uL Hgb 10.9 L (13.0-17.0) g/dL Hct 34.2 L (39.6-50.0) % MCHC 31.9 L (32.0-37.0) g/dL Plt Count 444 H (140-440) X 10*3/uL MPV 9.1 L (9.5-12.2) FL Immature Gran # 0.10 H (0.00-0.04) X 10*3/uL Neutrophils # 15.00 H (1.80-7.70) X 10*3/uL Eosinophils # 0 L (0.04-0.35) X 10*3/uL Sodium 136 L (137-145) mmol/L Chloride 109 H (98-107) mmol/L BUN 23 H (9-20) mg/dL Glucose 137 H (74-99) mg/dL POC Glucose (mg/dL) (70-110) mg/dL Hemoglobin A1c 6.1 H (<=6.0) % AST 219 H (17-59) U/L ALT 250 H (4-49) U/L Alkaline Phosphatase 174 H (38-126) U/L Total Protein 6.2 L (6.3-8.2) g/dL Albumin 3.1 L (3.5-5.0) g/dL 04/01/23 Range/Units 07:16 WBC (4.50-10.00) X 10*3/uL RBC (4.40-5.60) X 10*6/uL Hgb (13.0-17.0) g/dL Hct (39.6-50.0) % MCHC (32.0-37.0) g/dL Plt Count (140-440) X 10*3/uL MPV (9.5-12.2) FL Immature Gran # (0.00-0.04) X 10*3/uL Neutrophils # (1.80-7.70) X 10*3/uL Eosinophils # (0.04-0.35) X 10*3/uL Sodium (137-145) mmol/L Chloride (98-107) mmol/L BUN (9-20) mg/dL Glucose (74-99) mg/dL POC Glucose (mg/dL) 138 H (70-110) mg/dL Hemoglobin A1c (<=6.0) % AST (17-59) U/L ALT (4-49) U/L Alkaline Phosphatase (38-126) U/L Total Protein (6.3-8.2) g/dL Albumin (3.5-5.0) g/dL Microbiology - Last 24 Hours (Table) 03/30/23 13:18 Blood Culture - Preliminary Blood 03/30/23 13:18 Blood Culture - Preliminary Blood 03/30/23 14:20 Gram Stain - Preliminary Sputum
--- NOTE | 2023-04-01 15:22 | P.PN ---
Subjective Progress Note Date: 04/01/23 Principal diagnosis: SAOB, multifocal pneumonia. Urothelial carcinoma, NHL, clear cell carcinoma In follow-up today patient is reporting significant improvement in his respiratory status. He is breathing much more comfortably on 2 L nasal cannula at rest, he is still short of breath with ambulating. He is noting that with all the steroids he is having some difficulty sleeping. He and his family had some concerns about immunotherapy in the future. They were questioning why ultrasound of the abdomen is ordered. Otherwise, patient denies fevers, nausea or vomiting, hemoptysis, acute changes in bowel or bladder habits. Objective - Vital Signs Vital signs: Vital Signs Temp 97.7 F 04/01/23 12:39 Pulse 99 04/01/23 12:39 Resp 16 04/01/23 12:39 BP 137/53 04/01/23 12:39 Pulse Ox 94 L 04/01/23 12:39 FiO2 Intake & Output 03/31/23 04/01/23 04/01/23 18:59 06:59 18:59 Output Total 400 500 Balance -400 -500 Output: Urine 400 500 Other: Voiding Method Urinal Toilet Toilet Urinal Urinal # Voids 3 3 - Constitutional General appearance: Present: average body habitus, cooperative, no acute di stress - EENT Eyes: Present: anicteric sclerae, EOMI ENT: Present: hearing grossly normal - Respiratory Respiratory: bilateral: diminished, rales (end expiratory ) - Cardiovascular Rhythm: regular Heart sounds: normal: S1, S2 Abnormal Heart Sounds: Absent: systolic murmur, diastolic murmur, rub, S3 Gallop, S4 Gallop, click, other - Peripheral edema leg Peripheral Edema: bilateral: None - Gastrointestinal General gastrointestinal: Present: distended, normal bowel sounds, soft - Integumentary Integumentary Comment(s): jason - Neurologic Neurologic: Present: CNII-XII intact - Musculoskeletal Musculoskeletal: Present: generalized weakness, strength equal bilaterally - Psychiatric Psychiatric: Present: A&O x's 3, appropriate affect, intact judgment & insight - Labs CBC & Chem 7: 04/01/23 05:19 04/01/23 05:19 Labs: Abnormal Lab Results - Last 24 Hours (Table) 03/31/23 03/31/23 04/01/23 Range/Units 17:19 20:26 05:19 WBC (4.50-10.00) X 10*3/uL RBC (4.40-5.60) X 10*6/uL Hgb (13.0-17.0) g/dL Hct (39.6-50.0) % MCHC (32.0-37.0) g/dL Plt Count (140-440) X 10*3/uL MPV (9.5-12.2) FL Immature Gran # (0.00-0.04) X 10*3/uL Neutrophils # (1.80-7.70) X 10*3/uL Eosinophils # (0.04-0.35) X 10*3/uL Sodium (137-145) mmol/L Chloride (98-107) mmol/L BUN (9-20) mg/dL Glucose (74-99) mg/dL POC Glucose (mg/dL) 306 H 260 H (70-110) mg/dL Hemoglobin A1c 6.1 H (<=6.0) % AST (17-59) U/L ALT (4-49) U/L Alkaline Phosphatase (38-126) U/L Total Protein (6.3-8.2) g/dL Albumin (3.5-5.0) g/dL 04/01/23 04/01/23 04/01/23 Range/Units 05:19 05:19 07:16 WBC 16.62 H (4.50-10.00) X 10*3/uL RBC 3.84 L (4.40-5.60) X 10*6/uL Hgb 10.9 L (13.0-17.0) g/dL Hct 34.2 L (39.6-50.0) % MCHC 31.9 L (32.0-37.0) g/dL Plt Count 444 H (140-440) X 10*3/uL MPV 9.1 L (9.5-12.2) FL Immature Gran # 0.10 H (0.00-0.04) X 10*3/uL Neutrophils # 15.00 H (1.80-7.70) X 10*3/uL Eosinophils # 0 L (0.04-0.35) X 10*3/uL Sodium 136 L (137-145) mmol/L Chloride 109 H (98-107) mmol/L BUN 23 H (9-20) mg/dL Glucose 137 H (74-99) mg/dL POC Glucose (mg/dL) 138 H (70-110) mg/dL Hemoglobin A1c (<=6.0) % AST 219 H (17-59) U/L ALT 250 H (4-49) U/L Alkaline Phosphatase 174 H (38-126) U/L Total Protein 6.2 L (6.3-8.2) g/dL Albumin 3.1 L (3.5-5.0) g/dL 04/01/23 Range/Units 11:55 WBC (4.50-10.00) X 10*3/uL RBC (4.40-5.60) X 10*6/uL Hgb (13.0-17.0) g/dL Hct (39.6-50.0) % MCHC (32.0-37.0) g/dL Plt Count (140-440) X 10*3/uL MPV (9.5-12.2) FL Immature Gran # (0.00-0.04) X 10*3/uL Neutrophils # (1.80-7.70) X 10*3/uL Eosinophils # (0.04-0.35) X 10*3/uL Sodium (137-145) mmol/L Chloride (98-107) mmol/L BUN (9-20) mg/dL Glucose (74-99) mg/dL POC Glucose (mg/dL) 245 H (70-110) mg/dL Hemoglobin A1c (<=6.0) % AST (17-59) U/L ALT (4-49) U/L Alkaline Phosphatase (38-126) U/L Total Protein (6.3-8.2) g/dL Albumin (3.5-5.0) g/dL Microbiology - Last 24 Hours (Table) 03/30/23 14:20 Gram Stain - Final Sputum Sputum Culture - Final 03/30/23 13:18 Blood Culture - Preliminary Blood 03/30/23 13:18 Blood Culture - Preliminary Blood Assessment and Plan (1) Multifocal pneumonia Current Visit: Yes Status: Acute Code(s): J18.9 - PNEUMONIA, UNSPECIFIED ORGANISM SNOMED Code(s): 995012602 (2) Urothelial carcinoma Current Visit: Yes Status: Chronic Priority: Medium Code(s): C68.9 - MALIGNANT NEOPLASM OF URINARY ORGAN, UNSPECIFIED SNOMED Code(s): 023777307 Plan: Multifocal pneumonia versus pneumonitis from immunotherapy -It was discussed with the patient family today at bedside that quite possibly his respiratory symptoms are side effect of immunotherapy. Patient improved while on steroids then, his symptoms returned after completing. -Repeated what was discussed yesterday about lung biopsy, and challenge differentiating between pneumonia and inflammation. If the biopsy shows inflammation it can be difficult to determine exact etiology, if inflammation from infection or inflammation from immunotherapy. If an organism is found though, then pneumonia can be confirmed. Follow with Pulmonary recs -Reviewed concerns that respiratory symptoms are because of immunotherapy. Plan for right now is to hold treatment, complete a steroid taper and reassess patient. Patient will not be resumed on keytruda -Follow-up with Dr. Alexis is in the discharge plan. Urothelial carcinoma -Patient has been on immunotherapy with Keytruda for the same. Status post 14 cycles, last treatment given 03/17/2023 -Recent biopsy, persistent disease but, no metastatic disease. History of non-Hodgkin's lymphoma and marginal zone lymphoma -Asymptomatic, no treatment (may be deriving benefit from keytruda?), ongoing monitoring. -Recent CT showing no evidence of disease progression Renal cell carcinoma -Recent CT showing no evidence of disease progression Time with Patient: Greater than 30
--- NOTE | 2023-04-01 15:30 | P.CONS ---
History of Present Illness - Reason for Consult Consult date: 04/01/23 Transaminitis Requesting physician: Alejandro Mclean - Chief Complaint Pneumonia - History of Present Illness This is a 83-year-old male with multiple complex medical complications including B cell non-Hodgkin's lymphoma, urothelial carcinoma, renal cell carcinoma who follows with Dr. Green and Dr. Santos. Patient has been receiving immunotherapy with Keytruda since June 2022 and has received 14 cycles with his last one being on 03/17/2023. He states he gets it every 3 weeks however currently on hold as patient has become very short of breath and was admitted with focal pneumonia versus inflammatory reaction from Keytruda. When he was admitted to the hospital he was noted to have some elevated LFTs which have continued to increase. 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 He has been on high-dose steroids, also on antibiotics. He was initially treated as an outpatient with doxycycline by Dr. Green for concerns for pneumonia. He was admitted to the hospital started on vancomycin and cefepime. He denies any abdominal pain, nausea or vomiting. States shortness of breath has improved since he has been hospitalized. Admitting LFTs include total bilirubin 0.5 AST 138 ALT 152 alkaline phosphatase 193. He denies any previous history of elevated LFTs. Reviewing past labs in chart his LFTs were normal back in November 2022. He states Dr. Alexis had not mention any elevation of his LFTs on any recent blood work. Today's labs WBC 16.6 hemoglobin 10.9 hematocrit 34 platelet count 444,000 sodium 136 potassium 4.5 BUN 23 creatinine 0.8 total bilirubin 0.3 AST 219 ALT 250 alkaline phosphatase 170 Review of Systems REVIEW OF SYSTEMS: CARDIOPULMONARY: No chest pain. Shortness of breath. Gastrointestinal: No abdominal pain. No nausea or vomiting. No hematemesis, coffee-ground emesis. No rectal bleeding, or melena. GENITOURINARY: No dysuria or hematuria. MUSCULOSKELETAL: Reports normal range of motion., Joint pain. SKIN: No rashes. No jaundice. ENDOCRINE: No chills, fevers. No excessive weight gain or loss. No polydipsia or polyuria. PSYCHIATRIC: Unremarkable. NEUROLOGY: No change in mental status. Denies dizziness, headache. ENT: Vision unremarkable. CONSTITUTIONAL: No recent weight loss. No fever, chills, night sweats. Past Medical History Past Medical History: Asthma, Cancer, COPD, Hyperlipidemia, Osteoarthritis (OA), Prostate Disorder, Sleep Apnea/CPAP/BIPAP Additional Past Medical History / Comment(s): skin cancer, uses CPAP, positive cologuard, HEPATITIS A TEEN , NON HODGKIN'S LYMPHOMA, RENAL CELL CA LT KIDNEY, TRANSITIONAL CELL CA RT KIDNEY, AAA History of Any Multi-Drug Resistant Organisms: None Reported Past Surgical History: Tonsillectomy Additional Past Surgical History / Comment(s): skin cancers removed, uvulectomy & surg. for sleep apnea, COLONOSCOPY polyp removed benign, EPIDURAL INJECTIONS, BRONCHOSCOPY, CYSTOSCOPY, LT KIDNEY NEEDLE BX, cataract removal, had right kidney biopsy and lazer of tumors to the right kidney and bladder Past Anesthesia/Blood Transfusion Reactions: No Reported Reaction Past Psychological History: No Psychological Hx Reported Smoking Status: Former smoker Past Alcohol Use History: Occasional, Rare Additional Past Alcohol Use History / Comment(s): STARTED SMOKING AT AGE 15 QUIT DEC 20 2019, SMOKED 1PPD Past Drug Use History: None Reported - Past Family History Sister(s) Family Medical History: Cancer Additional Family Medical History / Comment(s): LUNG CANCER Brother(s) Family Medical History: Cancer Additional Family Medical History / Comment(s): PROSTATE CANCER x3 Father Additional Family Medical History / Comment(s): parkinsons along with a brother Medications and Allergies Home Medications Medication Instructions Recorded Confirmed Type Atorvastatin [Lipitor] 40 mg PO HS 12/09/19 03/30/23 History Tamsulosin [Flomax] 0.4 mg PO HS 12/09/19 03/30/23 History Albuterol Sulfate [Albuterol 1 - 2 puff PO Q4-6H PRN 05/07/20 03/30/23 History Sulfate Hfa] Fluticasone Nasal [place] [Flonase 2 spray EA NOSTRIL DAILY 03/30/23 03/30/23 History Nasal [place]] Levothyroxine Sodium [Synthroid] 125 mcg PO DAILY 03/30/23 03/30/23 History Allergies Allergy/AdvReac Type Severity Reaction Status Date / Time No Known Allergies Allergy Verified 03/30/23 11:20 Physical Exam Vitals: Vital Signs Temp Pulse Pulse Resp BP Pulse Ox 04/01/23 11:25 68 04/01/23 11:16 68 04/01/23 08:00 97.8 F 91 12 139/60 93 L 04/01/23 07:53 72 04/01/23 07:42 69 96 04/01/23 02:00 98.6 F 75 16 150/69 97 03/31/23 21:13 99 03/31/23 21:06 92 03/31/23 20:00 98.5 F 93 16 160/74 95 03/31/23 15:36 92 03/31/23 15:25 88 Intake and Output 03/31/23 04/01/23 04/01/23 22:59 06:59 14:59 Output Total 500 Balance -500 Output: Urine 500 Other: Voiding Method Toilet Urinal # Voids 3 3 General appearance: The patient is alert, oriented, appears in no acute distress. HET: Head is normocephalic and atraumatic. Conjunctiva pink. Sclera anicteric. Neck: Supple without lymphadenopathy. Trachea midline. Heart: Regular. Lungs: Equal expansion, normal respiratory effort. Abdomen: Soft, nontender, nondistended with bowel sounds. No guarding or rigidity. Skin: No rashes. No jaundice. Extremities: Normal skin color and turgor. No pedal edema. Neurological: No focal deficits. Alert and oriented x3. Results CBC & Chem 7: 04/01/23 05:19 04/01/23 05:19 Labs: Abnormal Lab Results - Last 24 Hours (Table) 03/31/23 03/31/23 04/01/23 Range/Units 17:19 20:26 05:19 WBC (4.50-10.00) X 10*3/uL RBC (4.40-5.60) X 10*6/uL Hgb (13.0-17.0) g/dL Hct (39.6-50.0) % MCHC (32.0-37.0) g/dL Plt Count (140-440) X 10*3/uL MPV (9.5-12.2) FL Immature Gran # (0.00-0.04) X 10*3/uL Neutrophils # (1.80-7.70) X 10*3/uL Eosinophils # (0.04-0.35) X 10*3/uL Sodium (137-145) mmol/L Chloride (98-107) mmol/L BUN (9-20) mg/dL Glucose (74-99) mg/dL POC Glucose (mg/dL) 306 H 260 H (70-110) mg/dL Hemoglobin A1c 6.1 H (<=6.0) % AST (17-59) U/L ALT (4-49) U/L Alkaline Phosphatase (38-126) U/L Total Protein (6.3-8.2) g/dL Albumin (3.5-5.0) g/dL 04/01/23 04/01/23 04/01/23 Range/Units 05:19 05:19 07:16 WBC 16.62 H (4.50-10.00) X 10*3/uL RBC 3.84 L (4.40-5.60) X 10*6/uL Hgb 10.9 L (13.0-17.0) g/dL Hct 34.2 L (39.6-50.0) % MCHC 31.9 L (32.0-37.0) g/dL Plt Count 444 H (140-440) X 10*3/uL MPV 9.1 L (9.5-12.2) FL Immature Gran # 0.10 H (0.00-0.04) X 10*3/uL Neutrophils # 15.00 H (1.80-7.70) X 10*3/uL Eosinophils # 0 L (0.04-0.35) X 10*3/uL Sodium 136 L (137-145) mmol/L Chloride 109 H (98-107) mmol/L BUN 23 H (9-20) mg/dL Glucose 137 H (74-99) mg/dL POC Glucose (mg/dL) 138 H (70-110) mg/dL Hemoglobin A1c (<=6.0) % AST 219 H (17-59) U/L ALT 250 H (4-49) U/L Alkaline Phosphatase 174 H (38-126) U/L Total Protein 6.2 L (6.3-8.2) g/dL Albumin 3.1 L (3.5-5.0) g/dL 04/01/23 Range/Units 11:55 WBC (4.50-10.00) X 10*3/uL RBC (4.40-5.60) X 10*6/uL Hgb (13.0-17.0) g/dL Hct (39.6-50.0) % MCHC (32.0-37.0) g/dL Plt Count (140-440) X 10*3/uL MPV (9.5-12.2) FL Immature Gran # (0.00-0.04) X 10*3/uL Neutrophils # (1.80-7.70) X 10*3/uL Eosinophils # (0.04-0.35) X 10*3/uL Sodium (137-145) mmol/L Chloride (98-107) mmol/L BUN (9-20) mg/dL Glucose (74-99) mg/dL POC Glucose (mg/dL) 245 H (70-110) mg/dL Hemoglobin A1c (<=6.0) % AST (17-59) U/L ALT (4-49) U/L Alkaline Phosphatase (38-126) U/L Total Protein (6.3-8.2) g/dL Albumin (3.5-5.0) g/dL Microbiology - Last 24 Hours (Table) 03/30/23 14:20 Gram Stain - Final Sputum Sputum Culture - Final 03/30/23 13:18 Blood Culture - Preliminary Blood 03/30/23 13:18 Blood Culture - Preliminary Blood Assessment and Plan (1) Transaminitis Narrative/Plan: 83-year-old with multiple comorbidities including urothelial carcinoma, renal cell carcinoma, B cell non-Hodgkin's lymphoma who had been on Keytruda for the last 7 months and has received 14 cycles with last one being on 03/17/2023. No previous history of elevated LFTs. Also on recent antibiotics as an outpatient on oral doxycycline as well as vancomycin and cefepime inpatient. Likely elevated LFTs is secondary to medication induced. Unclear which medication either likely antibiotic or Keytruda. Also need to consider other possible etiologies such as hepatitis. Hepatitis panel ordered. Ultrasound of the liver ordered. Current Visit: Yes Status: Acute Code(s): R74.01 - ELEVATION OF LEVELS OF LIVER TRANSAMINASE LEVELS SNOMED Code(s): 925065415 (2) Leukocytosis Current Visit: Yes Status: Acute Code(s): D72.829 - ELEVATED WHITE BLOOD ALEX L COUNT, UNSPECIFIED SNOMED Code(s): 521394850 (3) Multifocal pneumonia Current Visit: Yes Status: Acute Code(s): J18.9 - PNEUMONIA, UNSPECIFIED ORGANISM SNOMED Code(s): 070594873 (4) Urothelial carcinoma Current Visit: Yes Status: Chronic Priority: Medium Code(s): C68.9 - MALIGNANT NEOPLASM OF URINARY ORGAN, UNSPECIFIED SNOMED Code(s): 735553206 Plan: 1. Continue symptomatic supportive care 2. Agree with abdominal ultrasound 3. Repeat Daily CMP 4. Avoid hepatotoxic medications, likely elevated LFTs secondary to medication possibly Keytruda, cefepime 5. Hepatitis panel ordered 6. Further recommendations forthcoming based on clinical course Thank you for this consultation, we will continue to follow. Dr. Leora Bosch I agree with the dictator's note, documented as a scribe by Rebeca Alex.
--- NOTE | 2023-04-01 16:23 | US ---
EXAMINATION TYPE: US abdomen complete DATE OF EXAM: 04/01/2023 COMPARISON: CT chest, abdomen and pelvis on 04/01/2023. CLINICAL INDICATION: Male, 83 years old with history of Abdominal pain, elevated LFTs; pneumonia, lef t renal cell carcinoma and patient states different kind of right renal ca also TECHNIQUE: Multiple sonographic images of the abdomen are obtained. FINDINGS: EXAM MEASUREMENTS: Liver Length: 16.5 cm Gallbladder Wall: 0.2 cm CBD: 0.5 cm Spleen: not seen Right Kidney: 10.7 x 5.1 x 5.4 cm Left Kidney: 10.8 x 6.4 x 6.1 cm Pancreas: portions seen appear wnl Liver: intercostal imaging due to bowel gas Gallbladder: NPO, appears slightly contracted Evidence for sonographic Bolaños's sign: no CBD: wnl Spleen: not seen due to bowel gas Right Kidney: 2.1 x 1.5 x 1.4cm probable cyst Left Kidney: 4.7 x 4.1 x 3.9cm lesion mid pole is already diagnosed renal cell Upper IVC: wnl Abd Aorta: limited views due to bowel gas, patient states h/o stent repair IMPRESSION: 1. Left renal mass patible with a known renal cell carcinoma. 2. Simple right renal cyst.
[2023-04-01] MEDS: ONDANSETRON 4 MG/2 ML VIAL IVP PRN (17:12)
[2023-04-01 17:17] LABS: Glucose,Whole Blood 149 mg/dL (70-110)
[2023-04-01 20:22] LABS: Glucose,Whole Blood 166 mg/dL (70-110)
[2023-04-01] MEDS: MIRTAZAPINE 15 MG TAB PO SCH (20:41)
[2023-04-01] MEDS ORDERED: SIMETHICONE 80 MG CHEWABLE PO PRN (21:31)
[2023-04-01] MEDS: FAMOTIDINE 20 MG TAB PO SCH (21:53)
[2023-04-02 04:44] LABS: Hepatitis A Antibody IgM Nonreactive; Hepatitis B Core IgM Nonreactive; Hepatitis B Surface Antigen Nonreactive; Hepatitis C IgG Antibody Nonreactive
[2023-04-02 07:07] LABS: Glucose,Whole Blood 159 mg/dL (70-110)
[2023-04-02] MEDS: VANCOMYCIN TROUGH DUE 1 EACH MISC MISCELLANE ONE (08:35)
[2023-04-02 09:05] LABS: HCT 34.1 % (39.0-53.0); HGB 10.6 gm/dL (13.0-17.5); Hypochromasia Slight; MCH 28.8 pg (25.0-35.0); MCHC 31.1 g/dL (31.0-37.0); MCV 92.8 fL (80.0-100.0); Mean Platelet Volume 7.6; Platelet Count 440 k/uL (150-450); RBC 3.68 m/uL (4.30-5.90); RDW 13.8 % (11.5-15.5); WBC 15.9 k/uL (3.8-10.6)
[2023-04-02 09:24] LABS: ALT 243 U/L (4-49); AST 111 U/L (17-59); African American GFR (CKD) >90 (>60 ml/min/1.73 sqM); Albumin 2.7 g/dL (3.5-5.0); Albumin/Globulin Ratio 0.9; Alkaline Phosphatase 147 U/L (38-126); Anion Gap 6 mmol/L; Blood Urea Nitrogen 22 mg/dL (9-20); Calcium 9.8 mg/dL (8.4-10.2); Carbon Dioxide 23 mmol/L (22-30); Chloride 110 mmol/L (98-107); Glucose 150 mg/dL (74-99); Non-African American GFR(CKD) 84 (>60 ml/min/1.73 sqM); Potassium 4.4 mmol/L (3.5-5.1); Sodium 139 mmol/L (137-145); Total Bilirubin 0.3 mg/dL (0.2-1.3); Total Protein 5.7 g/dL (6.3-8.2)
--- NOTE | 2023-04-02 11:30 | P.PN ---
Subjective Progress Note Date: 04/02/23 Principal diagnosis: Transaminitis This is a 83-year-old male with multiple complex medical complications including B cell non-Hodgkin's lymphoma, urothelial carcinoma, renal cell carcinoma who follows with Dr. Green and Dr. Santos. Patient has been receiving immunotherapy with Keytruda since June 2022 and has received 14 cycles with his last one being on 03/17/2023. He states he gets it every 3 weeks however currently on hold as patient has become very short of breath and was admitted with focal pneumonia versus inflammatory reaction from Keytruda. When he was admitted to the hospital he was noted to have some elevated LFTs which have continued to increase. 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 He has been on high-dose steroids, also on antibiotics. He was initially treated as an outpatient with doxycycline by Dr. Green for concerns for pneumonia. He was admitted to the hospital started on vancomycin and cefepime. He denies any abdominal pain, nausea or vomiting. States shortness of breath has improved since he has been hospitalized. Admitting LFTs include total bilirubin 0.5 AST 138 ALT 152 alkaline phosphatase 193. He denies any previous history of elevated LFTs. Reviewing past labs in chart his LFTs were normal back in November 2022. He states Dr. Alexis had not mention any elevation of his LFTs on any recent blood work. 04/02/2023 Patient seen and examined sitting up in his bedside chair. Patient was just out ambulating with physical therapy. He is overall without complaints at this time. No abdominal pain, nausea or vomiting. Liver enzymes are trending down slightly total bilirubin remains stable at 0.3 AST 111 ALT 243 alkaline phosphatase 147. Hepatitis panel nonreactive. Again this is likely medication induced, need to consider the Keytruda and possibly the cefepime. Keytruda has been completely discontinued. Liver ultrasound was completed, no acute findings with the liver. Objective - Vital Signs Vital signs: Vital Signs Temp 97.5 F L 04/02/23 07:23 Pulse 68 04/02/23 07:56 Resp 18 04/02/23 07:23 BP 120/65 04/02/23 07:23 Pulse Ox 95 04/02/23 07:49 FiO2 Intake & Output 04/01/23 04/02/23 04/02/23 18:59 06:59 18:59 Intake Total 450 Output Total 400 Balance 450 -400 Intake: Intake, IV Titration 450 Amount Cefepime 2 gm In Sodium 200 Chloride 0.9% 100 ml @ 25 mls/hr IVPB Q8HR [facility] Rx# :[id number] Vancomycin 1,250 mg In 250 Sodium Chloride 0.9% 250 ml @ 125 mls/hr IVPB Q12H [facility] Rx#:[id number] Output: Urine 400 Other: Voiding Method Toilet Urinal # Voids 3 1 - Exam General appearance: The patient is alert, oriented, appears in no acute distress. HET: Head is normocephalic and atraumatic. Conjunctiva pink. Sclera anicteric. Neck: Supple without lymphadenopathy. Abdomen: Soft, nontender, nondistended with bowel sounds. No guarding or rigidity. Extremities: Normal skin color and turgor. No pedal edema Skin: No rashes, no jaundice Neurological: No focal deficits. Alert and oriented. - Labs CBC & Chem 7: 04/02/23 06:42 04/02/23 06:42 Labs: Abnormal Lab Results - Last 24 Hours (Table) 04/01/23 04/01/23 04/01/23 Range/Units 05:19 11:55 17:16 WBC 16.62 H (4.50-10.00) X 10*3/uL RBC 3.84 L (4.40-5.60) X 10*6/uL Hgb 10.9 L (13.0-17.0) g/dL Hct 34.2 L (39.6-50.0) % MCHC 31.9 L (32.0-37.0) g/dL Plt Count 444 H (140-440) X 10*3/uL MPV 9.1 L (9.5-12.2) FL Immature Gran # 0.10 H (0.00-0.04) X 10*3/uL Neutrophils # 15.00 H (1.80-7.70) X 10*3/uL Eosinophils # 0 L (0.04-0.35) X 10*3/uL POC Glucose (mg/dL) 245 H 149 H (70-110) mg/dL 04/01/23 04/02/23 Range/Units 20:21 07:06 WBC (4.50-10.00) X 10*3/uL RBC (4.40-5.60) X 10*6/uL Hgb (13.0-17.0) g/dL Hct (39.6-50.0) % MCHC (32.0-37.0) g/dL Plt Count (140-440) X 10*3/uL MPV (9.5-12.2) FL Immature Gran # (0.00-0.04) X 10*3/uL Neutrophils # (1.80-7.70) X 10*3/uL Eosinophils # (0.04-0.35) X 10*3/uL POC Glucose (mg/dL) 166 H 159 H (70-110) mg/dL Microbiology - Last 24 Hours (Table) 03/30/23 13:18 Blood Culture - Preliminary Blood 03/30/23 13:18 Blood Culture - Preliminary Blood 03/31/23 09:35 Nasal Screen MRSA/MSSA - Final Nasal Swab 03/30/23 14:20 Gram Stain - Final Sputum Sputum Culture - Final Assessment and Plan (1) Transaminitis Narrative/Plan: 83-year-old with multiple comorbidities including urothelial carcinoma, renal cell carcinoma, B cell non-Hodgkin's lymphoma who had been on Keytruda for the last 7 months and has received 14 cycles with last one being on 03/17/2023. No previous history of elevated LFTs. Also on recent antibiotics as an outpatient on oral doxycycline as well as vancomycin and cefepime inpatient. Likely elevated LFTs is secondary to medication induced. Unclear which medication either likely antibiotic or Keytruda. Also need to consider other possible etiologies such as hepatitis. Hepatitis panel ordered. No acute findings on liver ultrasound. Current Visit: Yes Status: Acute Code(s): R74.01 - ELEVATION OF LEVELS OF LIVER TRANSAMINASE LEVELS SNOMED Code(s): 318482886 (2) Leukocytosis Current Visit: Yes Status: Acute Code(s): D72.829 - ELEVATED WHITE BLOOD CELL COUNT, UNSPECIFIED SNOMED Code(s): 461270937 (3) Multifocal pneumonia Current Visit: Yes Status: Acute Code(s): J18.9 - PNEUMONIA, UNSPECIFIED ORGANISM SNOMED Code(s): 006917876 (4) Urothelial carcinoma Current Visit: Yes Status: Chronic Priority: Medium Code(s): C68.9 - MAL IGNANT NEOPLASM OF URINARY ORGAN, UNSPECIFIED SNOMED Code(s): 725749354 Plan: 1. Continue symptomatic supportive care 2. Daily CMP 3. Avoid hepatotoxic medications, likely elevated LFTs secondary to medication possibly Keytruda, cefepime. Consider alternative to cefepime. 4. No further workup indicated at this time. Recommend outpatient CMP, if liver enzymes do not continue to trend down patient should follow-up with gastroenterology Thank you for this consultation, we will sign off at this time. Dr. Leora Bosch I agree with the dictator's note, documented as a scribe by Rebeca Alex.
--- NOTE | 2023-04-02 11:52 | P.PN ---
Subjective Progress Note Date: 04/02/23 Principal diagnosis: Reason for follow-up is abnormal CT question of pneumonia Patient is a 83-year-old male with a past medical history significant for hypertension COPD non-Hodgkin lymphoma and also have a history of renal cancer for the patient has been on Keytruda, presented to hospital with increasing shortness of breath and weakness symptoms going on for about 3-week before presentation to the hospital CT did shows scattered multifocal infiltrate concerning for possible atypical infection prompting this infectious disease consultation. On today's evaluation that is 04/02/2023,the patient remains to be afebrile, patient is on 2 L nasal cannula supplemental oxygen and patient mention breathing has improved no chest pain and cough is decreased in intensity.Patient denies having any nausea or vomiting, no abdominal pain and no diarrhea has been reported. Patient white count is 15.9 creatinine is 0.77 Vanco trough is 12.5 sputum culture negative blood culture so far pending Objective - Vital Signs Vital signs: Vital Signs Temp 97.5 F L 04/02/23 07:23 Pulse 68 04/02/23 11:33 Resp 18 04/02/23 07:23 BP 120/65 04/02/23 07:23 Pulse Ox 95 04/02/23 07:49 FiO2 Intake & Output 04/01/23 04/02/23 04/02/23 18:59 06:59 18:59 Intake Total 450 Output Total 400 Balance 450 -400 Intake: Intake, IV Titration 450 Amount Cefepime 2 gm In Sodium 200 Chloride 0.9% 100 ml @ 25 mls/hr IVPB Q8HR [facility] Rx# :[id number] Vancomycin 1,250 mg In 250 Sodium Chloride 0.9% 250 ml @ 125 mls/hr IVPB Q12H [facility] Rx#:[id number] Output: Urine 400 Other: Voiding Method Toilet Toilet Urinal Urinal # Voids 3 1 - Exam GENERAL DESCRIPTION: An elderly male lying in bed in no distress RESPIRATORY SYSTEM: Unlabored breathing , coarse breath sounds bilaterally HEART: S1 S2 regular rate and rhythm , ABDOMEN: Soft , no tenderness EXTREMITIES: No edema feet - Labs CBC & Chem 7: 04/02/23 06:42 04/02/23 06:42 Labs: Abnormal Lab Results - Last 24 Hours (Table) 04/01/23 04/01/23 04/01/23 Range/Units 11:55 17:16 20:21 WBC (3.8-10.6) k/uL RBC (4.30-5.90) m/uL Hgb (13.0-17.5) gm/dL Hct (39.0-53.0) % Chloride (98-107) mmol/L BUN (9-20) mg/dL Glucose (74-99) mg/dL POC Glucose (mg/dL) 245 H 149 H 166 H (70-110) mg/dL AST (17-59) U/L ALT (4-49) U/L Alkaline Phosphatase (38-126) U/L Total Protein (6.3-8.2) g/dL Albumin (3.5-5.0) g/dL 04/02/23 04/02/23 04/02/23 Range/Units 06:42 06:42 07:06 WBC 15.9 H (3.8-10.6) k/uL RBC 3.68 L (4.30-5.90) m/uL Hgb 10.6 L (13.0-17.5) gm/dL Hct 34.1 L (39.0-53.0) % Chloride 110 H (98-107) mmol/L BUN 22 H (9-20) mg/dL Glucose 150 H (74-99) mg/dL POC Glucose (mg/dL) 159 H (70-110) mg/dL AST 111 H (17-59) U/L ALT 243 H (4-49) U/L Alkaline Phosphatase 147 H (38-126) U/L Total Protein 5.7 L (6.3-8.2) g/dL Albumin 2.7 L (3.5-5.0) g/dL Microbiology - Last 24 Hours (Table) 03/30/23 13:18 Blood Culture - Preliminary Blood 03/30/23 13:18 Blood Culture - Preliminary Blood 03/31/23 09:35 Nasal Screen MRSA/MSSA - Final Nasal Swab 03/30/23 14:20 Gram Stain - Final Sputum Sputum Culture - Final Assessment and Plan (1) Abnormal CT scan, chest Current Visit: Yes Status: Acute Code(s): R93.89 - ABNORMAL FINDINGS ON DX IMAGING OF OTH BODY STRUCTURES SNOMED Code(s): 24633891988119736 (2) Leukocytosis Current Visit: Yes Status: Acute Code(s): D72.829 - ELEVATED WHITE BLOOD CELL COUNT, UNSPECIFIED SNOMED Code(s): 665005444 (3) Multifocal pneumonia Current Visit: Yes Status: Acute Code(s): J18.9 - PNEUMONIA, UNSPECIFIED ORGANISM SNOMED Code(s): 542249472 Plan: 1patient presented to hospital with increasing shortness of breath and weakness which is likely multifactorial in this patient currently on immunotherapy patient not running any fever or elevated white count with a question of drug effect underlying bacterial pneumonia less likely but not excluded 2sputum culture negative for resistant pathogen blood pressure for pending 3patient to continue with cefepime however will discontinue vancomycin as culture negative for MRSA 4-leukocytosis more likely steroid related and trending down, will monitor closely Dictation was produced using [employer] dictation software. please excuse any grammatical, word or spelling errors. Time with Patient: Less than 30
[2023-04-02 12:10] LABS: Glucose,Whole Blood 128 mg/dL (70-110)
--- NOTE | 2023-04-02 12:32 | P.PN ---
Subjective Progress Note Date: 04/02/23 Patient is a 83-year-old white male with past medical history significant for renal cancer, left upper lung nodule, COPD, hypothyroidism, hyperlipidemia, and remote tobacco smokerwho presented to the ER for shortness of breath and generalized weakness. Patient is currently undergoing chemotherapy for renal cell carcinoma in which he is currently undergoing Keytruda treatments every [address] Alexis. Patient stated that he was treated for pneumonia a couple of weeks ago with antibiotics and steroids. Yesterday patient presented at his urologist office where he was found to profoundly weak and short of breath. Patient has been noticing that he was more short of breath and coughing. There was no complaint of fever or chills. There was no complaint of chest pain. Patient was clinical loss of appetite and lethargy. There was no complaint of swelling of feet. Denies any palpitations. There was no complaint of orthopnea or PND. Patient urologist told him to come to the ER immediately. Initial lab work done in the ER showed WBC 9.5, hemoglobin 12.1, platelet count 371, sodium 133, potassium 4.6, BUN 14, creatinine 0.84 AST 138, ALT 152, alk phos 193, CRP 16, proBNP 280 Influenza A not detected Influenza B not detected RSV not detected COVID-19 not detected EKG done in the ER showed heart rate of 78, no ST segment elevation or depression seen, no T-wave inversions seen. Chest x-ray done in the ER showed multifocal airspace opacities concerning for pneumonia, airspace opacities within the right lung appear new from prior CT chest with contrast negative for PE, showed chronic scattered lung findings present bilaterally Patient admitted to internal medicine service 04/01. Patient seen and examined. States breathing has improved, currently on 2 L of oxygen. Blood work done WBC 16.62, hemoglobin 10.9, platelet count 444, sodium 130, potassium 4.5, BUN 23, creatinine 0.81. States he feels 100% better compared to yesterday. No shortness of breath at rest 04/02. Patient seen and examined. Breathing is improved. Blood work done this morning showed WBC 15.9, hemoglobin 6, sodium 100 potassium 4.4, BUN 22, bilirubin 1.3, AST 111, ALT 243 REVIEW OF SYSTEMS: CONSTITUTIONAL: No fever, no malaise,. CARDIOVASCULAR: No chest pain, no palpitations, no syncope. PULMONARY: No shortness of breath, no cough, GASTROINTESTINAL: No diarrhea, no nausea, no vomiting, no abdominal pain. NEUROLOGICAL: No headaches, no weakness, PHYSICAL EXAMINATION: GENERAL: The patient is alert and oriented x3, not in any acute distress. Well developed, well nourished. HEENT: Pupils are round and equally reacting to light. EOMI. No scleral icterus. No conjunctival pallor. Normocephalic, atraumatic. No pharyngeal erythema. No thyromegaly. CARDIOVASCULAR: S1 and S2 present. No murmurs, rubs, or gallops. PULMONARY: Chest is clear to auscultation, no wheezing or crackles. ABDOMEN: Soft, nontender, nondistended, normoactive bowel sounds. No palpable organomegaly. MUSCULOSKELETAL: No joint swelling or deformity. EXTREMITIES: No cyanosis, clubbing, or pedal edema. NEUROLOGICAL: Gross neurological examination did not reveal any focal deficits. SKIN: No rashes. 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 History of left upper lung nodule, previously positive for atypical lymphoid reticular infiltrates compatible with non-Hodgkin's lymphoma. Chronic obstructive pulmonary disease History of infrarenal AAA, status post percutaneous endovascular aortic repair Monitor vital signs Monitor CBC Monitor CMP Continue telemetry monitoring Follow-up blood cultures Continue breathing treatments Continue IV cefepime and vancomycin Continue IV Solu-Medrol DC Lipitor secondary to elevated LFTs Pulmonology following Hematology oncology following, suggested patient's symptoms could be secondary to side effects of immunotherapy, recommend holding off treatment for now ID following GI following, elevated LFTs most likely medication induced secondary to Keytruda Labs and medication were reviewed.. Continue same treatment. Continue with symptomatic treatment. Resume home medication. Monitor labs and vitals. DVT and GI prophylaxis. Further recommendations as per clinical course of the patient Dictation was produced using [employer] dictation software. please excuse any grammatical, word or spelling errors. Objective - Vital Signs Vital signs: Vital Signs Temp 97.5 F L 04/02/23 07:23 Pulse 68 04/02/23 11:33 Resp 18 04/02/23 07:23 BP 120/65 02/15/24 07:23 Pulse Ox 95 04/02/23 07:49 FiO2 Intake & Output 04/01/23 04/02/23 04/02/23 18:59 06:59 18:59 Intake Total 450 Output Total 400 Balance 450 -400 Intake: Intake, IV Titration 450 Amount Cefepime 2 gm In Sodium 200 Chloride 0.9% 100 ml @ 25 mls/hr IVPB Q8HR [facility] Rx# :[id number] Vancomycin 1,250 mg In 250 Sodium Chloride 0.9% 250 ml @ 125 mls/hr IVPB Q12H [facility] Rx#:[id number] Output: Urine 400 Other: Voiding Method Toilet Toilet Urinal Urinal # Voids 3 1 - Labs CBC & Chem 7: 04/02/23 06:42 04/02/23 06:42 Labs: Abnormal Lab Results - Last 24 Hours (Table) 04/01/23 04/01/23 04/02/23 Range/Units 17:16 20:21 06:42 WBC 15.9 H (3.8-10.6) k/uL RBC 3.68 L (4.30-5.90) m/uL Hgb 10.6 L (13.0-17.5) gm/dL Hct 34.1 L (39.0-53.0) % Chloride (98-107) mmol/L BUN (9-20) mg/dL Glucose (74-99) mg/dL POC Glucose (mg/dL) 149 H 166 H (70-110) mg/dL AST (17-59) U/L ALT (4-49) U/L Alkaline Phosphatase (38-126) U/L Total Protein (6.3-8.2) g/dL Albumin (3.5-5.0) g/dL 04/02/23 04/02/23 04/02/23 Range/Units 06:42 07:06 12:09 WBC (3.8-10.6) k/uL RBC (4.30-5.90) m/uL Hgb (13.0-17.5) gm/dL Hct (39.0-53.0) % Chloride 110 H (98-107) mmol/L BUN 22 H (9-20) mg/dL Glucose 150 H (74-99) mg/dL POC Glucose (mg/dL) 159 H 128 H (70-110) mg/dL AST 111 H (17-59) U/L ALT 243 H (4-49) U/L Alkaline Phosphatase 147 H (38-126) U/L Total Protein 5.7 L (6.3-8.2) g/dL Albumin 2.7 L (3.5-5.0) g/dL Microbiology - Last 24 Hours (Table) 03/30/23 13:18 Blood Culture - Preliminary Blood 03/30/23 13:18 Blood Culture - Preliminary Blood 03/31/23 09:35 Nasal Screen MRSA/MSSA - Final Nasal Swab 03/30/23 14:20 Gram Stain - Final Sputum Sputum Culture - Final
--- NOTE | 2023-04-02 13:11 | P.PN ---
Subjective Progress Note Date: 04/02/23 I am seeing this patient in consultation today March 31, 2023 after he was sent in from Dr. Null's office after being found profoundly weak and short of breath. Patient is a 83-year-old white male with past medical history significant for renal cancer, left upper lung nodule, COPD, hypothyroidism, h yperlipidemia, and remote tobacco smoker. Dr. Alexis is his oncologist. Patient has a known left upper lobe lung nodule that was biopsied by Dr. Rubio in 2021, which tested positive for atypical lymphoreticular infiltrates compatible with non-Hodgkin lymphoma. This is currently being monitored. Patient also has a left renal mass positive for renal cell carcinoma in which he is currently undergoing Keytruda treatments every 3 weeks. This treatment is being ongoing since Jun, 2022. 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 For this reason he follows with Dr. Auguste. Patient recently underwent an outpatient urological procedure with Dr. Auguste, he was at the [facility] for follow-up yesterday, and was directed to the emergency room. Patient was profoundly weak and short of breath. Of note, patient was treated for pneumonia outpatient by Dr. Alexis approximately one month ago. A chest CT done at that time showed diffuse multifocal airspace opacities and groundglass opacities concerning for atypical pneumonia/infection. He was given antibiotics and steroids. Patient completed these medications, and initially felt better. After the procedure, however, he became more short of breath. He had associated subjective fevers, mostly at night, and chills during the day. He has had a cough, with mostly clear sputum production. Denies any chest pain. Denies any hemoptysis. Denies any sick contacts. He does endorse reduced appetite and nausea. No vomiting or abdominal pain. Patient is currently lying in bed, on 2 L/min nasal cannula, fairly comfortable. He appears very weak and fatigued, and it is taxing to sit up in bed. Chest CTA on arrival did not show any evidence of pulmonary embolism. It did redemonstrate scattered bilateral infiltrates, s imilar in appearance, correlating for possible pulmonary fibrosis, immunotherapy pneumonitis, or atypical pneumonia. There is also the patient's left upper lobe lung nodule redemonstrated as well as mediastinal lymphadenopathy. CBC on arrival: WBC count 9.5, hemoglobin 12.1, hematocrit 36.7, platelets 371. BMP on arrival: Sodium 133, potassium 4.6, chloride 101, serum bicarb 28, BUN 14, creatinine 0.8, glucose 93. Liver enzymes mildly elevated. NT proBNP 280. Troponin less than 0.012. Procalcitonin level 0.14. Negative for influenza, RSV, COVID. Patient empirically started on antibiotics. Currently afebrile. Vital signs are stable. The patient is seen today April 01, 2023 in follow-up on the regular medical floor. He is currently sitting up in bed. Awake and alert in no acute distress. He states he is feeling quite a bit better today compared to yesterday. No worsening shortness of breath, cough or congestion. He is maintaining good O2 saturations in the 90s on 2 L/min per nasal cannula. He is afebrile. Hemodynamically stable. Sputum culture revealed no growth. Blood cultures are revealing no growth thus far. White count 16.6. Hemoglobin 10.9. Platelets 444. Sodium 136. Potassium 4.5. Bicarb 24. BUN 23. Creatinine 0.81. Glucose 137. AST 219. ALT 250. Alk phos 174. Procalcitonin was 0.14. He is continued on vancomycin and cefepime. Remains on DuoNeb ventilations, Solu-Medrol. Lovenox for DVT prophylaxis. The patient is seen today April 02, 2023. He is awake and alert in no acute distress. Continues to feel better each day. No worsening shortness of breath, cough or congestion. He is maintaining good O2 saturations in the 90s on 2 L/min per nasal cannula. Blood cultures reveal no growth. Sputum culture reveals no growth. White count 15.9. Hemoglobin 10.6. Sodium 139. Potassium 4.4. Bicarb 23. BUN 22. Creatinine 0.77. Glucose 150. AST 111. ALT 243. Vancomycin trough 12.5. He is continued on vancomycin and cefepime. Remains on bronchodilators and steroids. Objective - Vital Signs Vital signs: Vital Signs Temp 97.5 F L 04/02/23 07:23 Pulse 68 04/02/23 11:33 Resp 18 04/02/23 07:23 BP 120/65 04/02/23 07:23 Pulse Ox 95 04/02/23 07:49 FiO2 Intake & Output 02/04/02/23 04/02/23 18:59 06:59 18:59 Intake Total 450 Output Total 400 Balance 450 -400 Intake: Intake, IV Titration 450 Amount Cefepime 2 gm In Sodium 200 Chloride 0.9% 100 ml @ 25 mls/hr IVPB Q8HR [facility] Rx# :[id number] Vancomycin 1,250 mg In 250 Sodium Chloride 0.9% 250 ml @ 125 mls/hr IVPB Q12H [facility] Rx#:[id number] Output: Urine 400 Other: Voiding Method Toilet Toilet Urinal Urinal # Voids 3 1 - Exam GENERAL EXAM: Alert, oriented 83-year-old male, on 2 L per nasal cannula, in no apparent distress. HEAD: Normocephalic and atraumatic EYES: Normal reaction of pupils, equal size. NOSE: Clear with pink turbinates. THROAT: No erythema or exudates. NECK: No masses, no JVD. CHEST: No chest wall deformity. LUNGS: Equal air entry with left lower lobe inspiratory crackles. CVS: S1 and S2 normal with no audible murmur, regular rhythm. No extra heart sounds ABDOMEN: No hepatosplenomegaly, active bowel sounds, no guarding or rigidity. SPINE: No scoliosis or deformity SKIN: No rashes CENTRAL NERVOUS SYSTEM: No focal deficits, tone is normal in all 4 extremities. EXTREMITIES: There is no peripheral edema, clubbing, or cyanosis. Peripheral pulses are intact. - Labs CBC & Chem 7: 04/02/23 06:42 04/02/23 06:42 Labs: Abnormal Lab Results - Last 24 Hours (Table) 04/01/23 04/01/23 04/02/23 Range/Units 17:16 20:21 06:42 WBC 15.9 H (3.8-10.6) k/uL RBC 3.68 L (4.30-5.90) m/uL Hgb 10.6 L (13.0-17.5) gm/dL Hct 34.1 L (39.0-53.0) % Chloride (98-107) mmol/L BUN (9-20) mg/dL Glucose (74-99) mg/dL POC Glucose (mg/dL) 149 H 166 H (70-110) mg/dL AST (17-59) U/L ALT (4-49) U/L Alkaline Phosphatase (38-126) U/L Total Protein (6.3-8.2) g/dL Albumin (3.5-5.0) g/dL 04/02/23 04/02/23 04/02/23 Range/Units 06:42 07:06 12:09 WBC (3.8-10.6) k/uL RBC (4.30-5.90) m/uL Hgb (13.0-17.5) gm/dL Hct (39.0-53.0) % Chloride 110 H (98-107) mmol/L BUN 22 H (9-20) mg/dL Glucose 150 H (74-99) mg/dL POC Glucose (mg/dL) 159 H 128 H (70-110) mg/dL AST 111 H (17-59) U/L ALT 243 H (4-49) U/L Alkaline Phosphatase 147 H (38-126) U/L Total Protein 5.7 L (6.3-8.2) g/dL Albumin 2.7 L (3.5-5.0) g/dL Microbiology - Last 24 Hours (Table) 03/30/23 13:18 Blood Culture - Preliminary Blood 03/30/23 13:18 Blood Culture - Preliminary Blood 03/31/23 09:35 Nasal Screen MRSA/MSSA - Final Nasal Swab 03/30/23 14:20 Gram Stain - Final Sputum Sputum Culture - Final Assessment and Plan Assessment: Acute hypoxemic respiratory failure, possibly secondary to multifocal community- acquired pneumonia. Chest CTA on thence admission redemonstrates diffuse multi focal airspace disease with groundglass opacities concerning for possible atypical pneumonia/infectious process, immunotherapy induced pneumonitis, pulmonary fibrosis, among other etiology. This is superimposed on patient's left upper lung nodule and known mediastinal lymphadenopathy. Procalcitonin level is 0.14. 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 History of left upper lung nodule, previously positive for atypical lymphoid reticular infiltrates compatible with non-Hodgkin's lymphoma. Chronic obstructive pulmonary disease, stable Mild transaminitis, possibly related to Keytruda History of hyperlipidemia History of hypothyroidism History of infrarenal AAA, status post percutaneous endovascular aortic repair Remote history of tobacco dependence Plan: The patient was seen and evaluated Labs and medications reviewed Continue the current treatment plan Increase his activity as tolerated Follow-up chest x-ray in a.m. We will continue to follow I have personally seen and examined the patient, performed the documentation and the assessment and plan as written. Number of minutes spent on the visit: 10.
[2023-04-02 17:10] LABS: Glucose,Whole Blood 160 mg/dL (70-110)
--- NOTE | 2023-04-02 18:33 | P.PN ---
Subjective Progress Note Date: 04/02/23 Principal diagnosis: SAOB, multifocal pneumonia. Urothelial carcinoma, NHL, clear cell carcinoma In follow-up today patient is up in chair and doing really well. He reports his breathing is significantly improved, he is no longer needing O2 at rest. He denies any other complaints at this time. Objective - Vital Signs Vital signs: Vital Signs Temp 97.8 F 04/02/23 16:03 Pulse 92 04/02/23 16:03 Resp 21 04/02/23 16:03 BP 134/66 04/02/23 16:03 Pulse Ox 92 L 04/02/23 16:03 FiO2 Intake & Output 04/01/23 04/02/23 04/02/23 18:59 06:59 18:59 Intake Total 450 Output Total 400 Balance 450 -400 Intake: Intake, IV Titration 450 Amount Cefepime 2 gm In Sodium 200 Chloride 0.9% 100 ml @ 25 mls/hr IVPB Q8HR [facility] Rx# :[id number] Vancomycin 1,250 mg In 250 Sodium Chloride 0.9% 250 ml @ 125 mls/hr IVPB Q12H [facility] Rx#:[id number] Output: Urine 400 Other: Voiding Method Toilet Toilet Urinal Urinal # Voids 3 1 - Constitutional General appearance: Present: average body habitus, cooperative, no acute distress - EENT Eyes: Present: anicteric sclerae, EOMI ENT: Present: hearing grossly normal - Respiratory Details: Respirations even and unlabored at rest - Cardiovascular Details: Radial pulse 2+ - Peripheral edema leg Peripheral Edema: bilateral: None - Integumentary Integumentary: Present: flushed - Neurologic Neurologic: Present: CNII-XII intact - Musculoskeletal Musculoskeletal: Present: strength equal bilaterally - Psychiatric Psychiatric: Present: A&O x's 3, appropriate affect, intact judgment & insight - Labs CBC & Chem 7: 04/02/23 06:42 04/02/23 06:42 Labs: Abnormal Lab Results - Last 24 Hours (Table) 04/01/23 04/02/23 04/02/23 Range/Units 20:21 06:42 06:42 WBC 15.9 H (3.8-10.6) k/uL RBC 3.68 L (4.30-5.90) m/uL Hgb 10.6 L (13.0-17.5) gm/dL Hct 34.1 L (39.0-53.0) % Chloride 110 H (98-107) mmol/L BUN 22 H (9-20) mg/dL Glucose 150 H (74-99) mg/dL POC Glucose (mg/dL) 166 H (70-110) mg/dL AST 111 H (17-59) U/L ALT 243 H (4-49) U/L Alkaline Phosphatase 147 H (38-126) U/L Total Protein 5.7 L (6.3-8.2) g/dL Albumin 2.7 L (3.5-5.0) g/dL 04/02/23 04/02/23 04/02/23 Range/Units 07:06 12:09 17:09 WBC (3.8-10.6) k/uL RBC (4.30-5.90) m/uL Hgb (13.0-17.5) gm/dL Hct (39.0-53.0) % Chloride (98-107) mmol/L BUN (9-20) mg/dL Glucose (74-99) mg/dL POC Glucose (mg/dL) 159 H 128 H 160 H (70-110) mg/dL AST (17-59) U/L ALT (4-49) U/L Alkaline Phosphatase (38-126) U/L Total Protein (6.3-8.2) g/dL Albumin (3.5-5.0) g/dL Microbiology - Last 24 Hours (Table) 03/30/23 14:20 Legionella Culture - Preliminary Sputum 03/30/23 13:18 Blood Culture - Preliminary Blood 03/30/23 13:18 Blood Culture - Preliminary Blood 03/31/23 09:35 Nasal Screen MRSA/MSSA - Final Nasal Swab - Imaging and Cardiology US - abdomen: report reviewed Assessment and Plan (1) Multifocal pneumonia Current Visit: Yes Status: Acute Code(s): J18.9 - PNEUMONIA, UNSPECIFIED ORGANISM SNOMED Code(s): 259893878 (2) Urothelial carcinoma Current Visit: Yes Status: Chronic Priority: Medium Code(s): C68.9 - MALIGNANT NEOPLASM OF URINARY ORGAN, UNSPECIFIED SNOMED Code(s): 419461909 Plan: Multifocal pneumonia versus pneumonitis from immunotherapy -Pending how patient does with current respiratory treatment, antibiotics, steroids. -Plan for right now is to hold treatment, complete a steroid taper and reassess patient. -Unfortunately, patient has multiple malignancies and very limited treatment options. Wanting to be absolutely certain if patient's respiratory complaints are pneumonitis from immunotherapy versus some other etiology. Patient and family understand. -Follow-up with Dr. Alexis is in the discharge plan. Urothelial carcinoma -Patient has been on immunotherapy with Keytruda for the same. Status post 14 cycles, last treatment given 03/17/2023 -Recent biopsy, persistent disease but, no metastatic disease. History of non-Hodgkin's lymphoma and marginal zone lymphoma -Asymptomatic, no treatment (may be deriving benefit from keytruda?), ongoing monitoring. -Recent CT showing no evidence of disease progression Renal cell carcinoma -Recent CT showing no evidence of disease progression
[2023-04-02 21:31] LABS: Glucose,Whole Blood 114 mg/dL (70-110)
[2023-04-03 02:22] VITALS: RESP 18
[2023-04-03 07:09] LABS: Glucose,Whole Blood 128 mg/dL (70-110)
[2023-04-03 08:22] LABS: Basophils # (A) 0.01 X 10*3/uL (0.00-0.10); Basophils % (A) 0.1 %; Eosinophils # (A) 0 X 10*3/uL (0.04-0.35); Eosinophils % (A) 0 %; HCT 34.9 % (39.6-50.0); Lymphocytes # (A) 0.97 X 10*3/uL (0.90-5.00); Lymphocytes % (A) 6.6 %; MCH 28.8 pg (27.0-32.0); MCHC 31.5 g/dL (32.0-37.0); MCV 91.4 FL (80.0-97.0); Monocytes # (A) 0.46 X 10*3/uL (0.20-1.00); Monocytes % (A) 3.2 %; NRBC Per 100 WBC 0 X 10*3/uL (0.00-0.01); Neutrophils % (A) 88.3 %; Platelet Count 442 X 10*3/uL (140-440); RBC 3.82 X 10*6/uL (4.40-5.60); RDW 13.8 % (11.5-14.5)
[2023-04-03 08:32] LABS: ALT 217 U/L (10-49); AST 60 U/L (14-35); Albumin 3.1 g/dL (3.8-4.9); Albumin/Globulin Ratio 1.15 Ratio (1.60-3.17); Alkaline Phosphatase 131 U/L (41-126); Blood Urea Nitrogen 26.7 mg/dL (9.0-27.0); Calcium 9.9 mg/dL (8.7-10.3); Carbon Dioxide 26.8 mmol/L (21.6-31.8); Chloride 108 mmol/L (96-109); Globulin 2.7 g/dL (1.6-3.3); Glucose 126 mg/dL (70-110); Potassium 5.3 mmol/L (3.5-5.5); Sodium 143 mmol/L (135-145); Total Bilirubin <0.2 mg/dL (0.3-1.2); Total Protein 5.8 g/dL (6.2-8.2)
--- NOTE | 2023-04-03 10:09 | XR ---
EXAMINATION TYPE: XR chest 1V portable DATE OF EXAM: 04/03/2023 8:26 AM CLINICAL INDICATION:Male, 83 years old with history of Pneumonia; COMPARISON: Chest radiographs from 03/30/2023. TECHNIQUE: XR chest 1V portable Frontal view of the chest. FINDINGS: Lungs/Pleura: Similar multifocal airspace opacities. No evidence of pneumothorax or pleural effusion. Pulmonary vascularity: Unremarkable. Heart/mediastinum: Cardiomediastinal silhouette is unremarkable. Musculoskeletal: No acute osseous pathology. Other findings: None IMPRESSION: 1. Similar multifocal airspace opacities. 2. Stable support lines and tubes.
[2023-04-03 11:56] LABS: Glucose,Whole Blood 134 mg/dL (70-110)
--- NOTE | 2023-04-03 12:40 | P.PN ---
Subjective Progress Note Date: 04/03/23 I am seeing this patient in consultation today March 31, 2023 after he was sent in from Dr. Null's office after being found profoundly weak and short of breath. Patient is a 83-year-old white male with past medical history significant for renal cancer, left upper lung nodule, COPD, hypothyroidism, h yperlipidemia, and remote tobacco smoker. Dr. Alexis is his oncologist. Patient has a known left upper lobe lung nodule that was biopsied by Dr. Rubio in 2021, which tested positive for atypical lymphoreticular infiltrates compatible with non-Hodgkin lymphoma. This is currently being monitored. Patient also has a left renal mass positive for renal cell carcinoma in which he is currently undergoing Keytruda treatments every 3 weeks. This treatment is being ongoing since Jun, 2022. 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 For this reason he follows with Dr. Auguste. Patient recently underwent an outpatient urological procedure with Dr. Auguste, he was at the [facility] for follow-[facility] yesterday, and was directed to the emergency room. Patient was profoundly weak and short of breath. Of note, patient was treated for pneumonia outpatient by Dr. Alexis approximately one month ago. A chest CT done at that time showed diffuse multifocal airspace opacities and groundglass opacities concerning for atypical pneumonia/infection. He was given antibiotics and steroids. Patient completed these medications, and initially felt better. After the procedure, however, he became more short of breath. He had associated subjective fevers, mostly at night, and chills during the day. He has had a cough, with mostly clear sputum production. Denies any chest pain. Denies any hemoptysis. Denies any sick contacts. He does endorse reduced appetite and nausea. No vomiting or abdominal pain. Patient is currently lying in bed, on 2 L/min nasal cannula, fairly comfortable. He appears very weak and fatigued, and it is taxing to sit up in bed. Chest CTA on arrival did not show any evidence of pulmonary embolism. It did redemonstrate scattered bilateral infiltrates, s imilar in appearance, correlating for possible pulmonary fibrosis, immunotherapy pneumonitis, or atypical pneumonia. There is also the patient's left upper lobe lung nodule redemonstrated as well as mediastinal lymphadenopathy. CBC on arrival: WBC count 9.5, hemoglobin 12.1, hematocrit 36.7, platelets 371. BMP on arrival: Sodium 133, potassium 4.6, chloride 101, serum bicarb 28, BUN 14, creatinine 0.8, glucose 93. Liver enzymes mildly elevated. NT proBNP 280. Troponin less than 0.012. Procalcitonin level 0.14. Negative for influenza, RSV, COVID. Patient empirically started on antibiotics. Currently afebrile. Vital signs are stable. The patient is seen today April 01, 2023 in follow-up on the regular medical floor. He is currently sitting up in bed. Awake and alert in no acute distress. He states he is feeling quite a bit better today compared to yesterday. No worsening shortness of breath, cough or congestion. He is maintaining good O2 saturations in the 90s on 2 L/min per nasal cannula. He is afebrile. Hemodynamically stable. Sputum culture revealed no growth. Blood cultures are revealing no growth thus far. White count 16.6. Hemoglobin 10.9. Platelets 444. Sodium 136. Potassium 4.5. Bicarb 24. BUN 23. Creatinine 0.81. Glucose 137. AST 219. ALT 250. Alk phos 174. Procalcitonin was 0.14. He is continued on vancomycin and cefepime. Remains on DuoNeb ventilations, Solu-Medrol. Lovenox for DVT prophylaxis. The patient is seen today April 02, 2023. He is awake and alert in no acute distress. Continues to feel better each day. No worsening shortness of breath, cough or congestion. He is maintaining good O2 saturations in the 90s on 2 L/min per nasal cannula. Blood cultures reveal no growth. Sputum culture reveals no growth. White count 15.9. Hemoglobin 10.6. Sodium 139. Potassium 4.4. Bicarb 23. BUN 22. Creatinine 0.77. Glucose 150. AST 111. ALT 243. Vancomycin trough 12.5. He is continued on vancomycin and cefepime. Remains on bronchodilators and steroids. The patient is seen today April 03, 2023 in follow-up on the regular medical floor. He is sitting up in bed. Awake and alert in no acute distress. Feeling nearly back to his baseline. Anxious to go home. He is maintaining good O2 saturations in the 90s on 2 L/min per nasal cannula. Follow-up chest x-ray reveals similar multifocal airspace opacities. No significant improvement. Blood culture reveals no growth. Sputum culture reveals no growth. White count 14.6. Hemoglobin 11.0. Platelets 442. Sodium 143. Potassium 5.3. Bicarb 27. BUN 27. Creatinine 1.0. Glucose 126. AST 60. ALT 217. He remains on DuoNeb ventilations, Solu-Medrol. Antibiotics in the form of vancomycin and cefepime. Lovenox for DVT prophylaxis. Objective - Vital Signs Vital signs: Vital Signs Temp 97.5 F L 04/03/23 07:10 Pulse 84 04/03/23 12:08 Resp 18 04/03/23 07:10 BP 149/71 04/03/23 07:10 Pulse Ox 88 L 04/03/23 09:53 FiO2 Intake & Output 04/02/23 04/03/23 04/03/23 18:59 06:59 18:59 Output Total 400 550 Balance -400 -550 Output: Urine 400 550 Other: Voiding Method Toilet Toilet Toilet Urinal Urinal Urinal # Voids 2 1 1 - Exam GENERAL EXAM: Alert, very pleasant 83-year-old male, on 2 L per nasal cannula, in no apparent distress. HEAD: Normocephalic and atraumatic EYES: Normal reaction of pupils, equal size. NOSE: Clear with pink turbinates. THROAT: No erythema or exudates. NECK: No masses, no JVD. CHEST: No chest wall deformity. LUNGS: Equal air entry with left lower lobe inspiratory crackles. Bilateral scattered rhonchi CVS: S1 and S2 normal with no audible murmur, regular rhythm. No extra heart sounds ABDOMEN: No hepatosplenomegaly, active bowel sounds, no guarding or rigidity. SPINE: No scoliosis or deformity SKIN: No rashes CENTRAL NERVOUS SYSTEM: No focal deficits, tone is normal in all 4 extremities. EXTREMITIES: There is no peripheral edema, clubbing, or cyanosis. Peripheral pulses are intact. - Labs CBC & Chem 7: 04/03/23 05:37 04/03/23 05:37 Labs: Abnormal Lab Results - Last 24 Hours (Table) 04/02/23 04/02/23 04/03/23 Range/Units 17:09 21:29 05:37 WBC 14.60 H (4.50-10.00) X 10*3/uL RBC 3.82 L (4.40-5.60) X 10*6/uL Hgb 11.0 L (13.0-17.0) g/dL Hct 34.9 L (39.6-50.0) % MCHC 31.5 L (32.0-37.0) g/dL Plt Count 442 H (140-440) X 10*3/uL MPV 9.0 L (9.5-12.2) FL Immature Gran # 0.26 H (0.00-0.04) X 10*3/uL Neutrophils # 12.90 H (1.80-7.70) X 10*3/uL Eosinophils # 0 L (0.04-0.35) X 10*3/uL BUN/Creatinine Ratio (12.00-20.00) Ratio Glucose (70-110) mg/dL POC Glucose (mg/dL) 160 H 114 H (70-110) mg/dL Total Bilirubin (0.3-1.2) mg/dL AST (14-35) U/L ALT (10-49) U/L Alkaline Phosphatase (41-126) U/L Total Protein (6.2-8.2) g/dL Albumin (3.8-4.9) g/dL Albumin/Globulin Ratio (1.60-3.17) Ratio 04/03/23 04/03/23 04/03/23 Range/Units 05:37 07:07 11:55 WBC (4.50-10.00) X 10*3/uL RBC (4.40-5.60) X 10*6/uL Hgb (13.0-17.0) g/dL Hct (39.6-50.0) % MCHC (32.0-37.0) g/dL Plt Count (140-440) X 10*3/uL MPV (9.5-12.2) FL Immature Gran # (0.00-0.04) X 10*3/uL Neutrophils # (1.80-7.70) X 10*3/uL Eosinophils # (0.04-0.35) X 10*3/uL BUN/Creatinine Ratio 26.70 H (12.00-20.00) Ratio Glucose 126 H (70-110) mg/dL POC Glucose (mg/dL) 128 H 134 H (70-110) mg/dL Total Bilirubin <0.2 L (0.3-1.2) mg/dL AST 60 H (14-35) U/L ALT 217 H (10-49) U/L Alkaline Phosphatase 131 H (41-126) U/L Total Protein 5.8 L (6.2-8.2) g/dL Albumin 3.1 L (3.8-4.9) g/dL Albumin/Globulin Ratio 1.15 L (1.60-3.17) Ratio Microbiology - Last 24 Hours (Table) 03/30/23 13:18 Blood Culture - Preliminary Blood 03/30/23 13:18 Blood Culture - Preliminary Blood 03/30/23 14:20 Legionella Culture - Preliminary Sputum Assessment and Plan Assessment: Acute hypoxemic respiratory failure, possibly secondary to multifocal community-acquired pneumonia. Chest CTA on thence admission redemonstrates diffuse multifocal airspace disease with groundglass opacities concerning for possible atypical pneumonia/infectious process, immunotherapy induced pneumonitis, pulmonary fibrosis, among other etiology. This is superimposed on patient's left upper lung nodule and known mediastinal lymphadenopathy. Procalcitonin level is 0.14. 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 History of left upper lung nodule, previously positive for atypical lymphoid reticular infiltrates compatible with non-Hodgkin's lymphoma. Chronic obstructive pulmonary disease, stable Mild transaminitis, possibly related to Keytruda History of hyperlipidemia History of hypothyroidism History of infrarenal AAA, status post percutaneous endovascular aortic repair Remote history of tobacco dependence Plan: The patient was seen and evaluated Chest x-ray, labs and medications reviewed Improved clinically but not radiographically Continue the current treatment plan Titrate down the FiO2 as tolerated Increase his activity as tolerated Add an incentive spirometer We will continue to follow I have personally seen and examined the patient, performed the documentation and the assessment and plan as written. Number of minutes spent on the visit: 10.
--- NOTE | 2023-04-03 12:57 | P.DS ---
Providers Date of admission: 03/30/23 15:29 Expected date of discharge: 04/03/23 Attending physician: Nick Lombardo MD Consults: 03/30/23 15:06 Consult Physician Urgent Consulting Provider: Caridad Roche Consult Reason/Comments: Multifocal pneumonia Do you want consulting provider notified?: Yes 03/31/23 07:14 Consult Physician Routine Consulting Provider: Ranjith Alexis Consult Reason/Comments: known patient; RCC, urothelial carcinoma Do you want consulting provider notified?: Yes, Notify in am 03/31/23 10:02 Consult Physician Routine Consulting Provider: Harini Beckham Consult Reason/Comments: Pneumonia, sepsis Do you want consulting provider notified?: Yes Primary care physician: Isha Crane Hospital Course: Discharge diagnoses; Bacterial pneumonia Acute hypoxic respiratory failure Elevated LFTs Hyperlipidemia Hypothyroidism 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 History of left upper lung nodule, previously positive for atypical lymphoid reticular infiltrates compatible with non-Hodgkin's lymphoma. Chronic obstructive pulmonary disease History of infrarenal AAA, status post percutaneous endovascular aortic repair Hospital course; Patient is a 83-year-old white male with past medical history significant for renal cancer, left upper lung nodule, COPD, hypothyroidism, hyperlipidemia, and remote tobacco smokerwho presented to the ER for shortness of breath and generalized weakness. Patient is currently undergoing chemotherapy for renal c ell carcinoma in which he is currently undergoing Keytruda treatments every [address] Alexis. Patient stated that he was treated for pneumonia a couple of weeks ago with antibiotics and steroids. Yesterday patient presented at his urologist office where he was found to profoundly weak and short of breath. Patient has been noticing that he was more short of breath and coughing. There was no complaint of fever or chills. There was no complaint of chest pain. Patient was clinical loss of appetite and lethargy. There was no complaint of swelling of feet. Denies any palpitations. There was no complaint of orthopnea or PND. Patient urologist told him to come to the ER immediately. Initial lab work done in the ER showed WBC 9.5, hemoglobin 12.1, platelet count 371, sodium 133, potassium 4.6, BUN 14, creatinine 0.84 AST 138, ALT 152, alk phos 193, CRP 16, proBNP 280 Influenza A not detected Influenza B not detected RSV not detected COVID-19 not detected EKG done in the ER showed heart rate of 78, no ST segment elevation or depression seen, no T-wave inversions seen. Chest x-ray done in the ER showed multifocal airspace opacities concerning for pneumonia, airspace opacities within the right lung appear new from prior CT chest with contrast negative for PE, showed chronic scattered lung findings present bilaterally Patient admitted to internal medicine service 04/01. Patient seen and examined. States breathing has improved, currently on 2 L of oxygen. Blood work done WBC 16.62, hemoglobin 10.9, platelet count 444, sodium 130, potassium 4.5, BUN 23, creatinine 0.81. States he feels 100% better compared to yesterday. No shortness of breath at rest 04/02. Patient seen and examined. Breathing is improved. Blood work done this morning showed WBC 15.9, hemoglobin 6, sodium 100 potassium 4.4, BUN 22, bilirubin 1.3, AST 111, ALT 243 Hematology oncology following, suggested patient's symptoms could be secondary to side effects of immunotherapy, recommend holding off treatment for now ID following GI following, elevated LFTs most likely medication induced secondary to Keytruda 04/03. Patient seen and examined. Discussed with ID, they recommend starting patient on oral Ceftin for 3 days. Patient also being discharged on tapering dose of prednisone. Outpatient follow-up with ID and pulmonology and hematology PHYSICAL EXAMINATION: GENERAL: The patient is alert and oriented x3, not in any acute distress. Well developed, well nourished. HEENT: Pupils are round and equally reacting to light. EOMI. No scleral icterus. No conjunctival pallor. Normocephalic, atraumatic. No pharyngeal erythema. No thyromegaly. CARDIOVASCULAR: S1 and S2 present. No murmurs, rubs, or gallops. PULMONARY: Chest is clear to auscultation, no wheezing or crackles. ABDOMEN: Soft, nontender, nondistended, normoactive bowel sounds. No palpable organomegaly. MUSCULOSKELETAL: No joint swelling or deformity. EXTREMITIES: No cyanosis, clubbing, or pedal edema. NEUROLOGICAL: Gross neurological examination did not reveal any focal deficits. SKIN: No rashes. Dictation was produced using [employer] software. please excuse any grammatical, word or spelling errors. Plan - Discharge Summary Discharge Rx Participant: No New Discharge Prescriptions: New cefUROXime axetiL [Cefuroxime] 500 mg PO BID 3 Days #6 tab guaiFENesin [Mucinex] 600 mg PO Q12HR 7 Days #14 tab Albuterol Sulfate [Ventolin HFA] 2 puff INHALATION Q6H PRN #1 each PRN Reason: Shortness Of Breath Or Wheezing Continue Tamsulosin [Flomax] 0.4 mg PO HS Albuterol Sulfate [Albuterol Sulfate Hfa] 1 - 2 puff PO Q4-6H PRN PRN Reason: Shortness Of Breath Levothyroxine Sodium [Synthroid] 125 mcg PO DAILY Fluticasone Nasal Wilmore [Flonase Nasal Wilmore] 2 spray EA NOSTRIL DAILY Discontinued Atorvastatin [Lipitor] 40 mg PO HS Discharge Medication List Tamsulosin [Flomax] 0.4 mg PO HS 12/09/19 [History] Albuterol Sulfate [Albuterol Sulfate Hfa] 1 - 2 puff PO Q4-6H PRN 05/07/20 [History] Fluticasone Nasal [place] [Flonase Nasal Wilmore] 2 spray EA NOSTRIL DAILY 03/30/23 [History] Levothyroxine Sodium [Synthroid] 125 mcg PO DAILY 03/30/23 [History] Albuterol Sulfate [Ventolin HFA] 2 puff INHALATION Q6H PRN #1 each 04/03/23 [Rx] cefUROXime axetiL [Cefuroxime] 500 mg PO BID 3 Days #6 tab 04/03/23 [Rx] guaiFENesin [Mucinex] 600 mg PO Q12HR 7 Days #14 tab 04/03/23 [Rx] Follow up Appointment(s)/Referral(s): Ranjith Alexis [STAFF PHYSICIAN] - 04/23/23 2:00 pm Karen Bosch MD [STAFF PHYSICIAN] - As Needed (Gastroenterology) Isha Crane DO [Primary Care Provider] - 1-2 days [facility], [NON-STAFF] - 1 Week Discharge Disposition: HOME SELF-CARE
[2023-04-03 13:02] VITALS: BP 137/53; PULSE 82; TEMP 97.7
--- NOTE | 2023-04-03 13:14 | P.PN ---
Subjective Progress Note Date: 04/03/23 Principal diagnosis: Reason for follow-up is abnormal CT question of pneumonia Patient is a 83-year-old male with a past medical history significant for hypertension COPD non-Hodgkin lymphoma and also have a history of renal cancer for the patient has been on Keytruda, presented to hospital with increasing shortness of breath and weakness symptoms going on for about 3-week before presentation to the hospital CT did shows scattered multifocal infiltrate concerning for possible atypical infection prompting this infectious disease consultation. On today's evaluation that is 04/03/2023, the patient continues to be afebrile, the patient is on 2 L nasal cannula oxygen and breathing comfortably, the Pt denies having any chest pain or worsening cough, the patient denies having any abdominal pain no vomiting or any diarrhea has been reported by the nursing staff. Patient white count is 14.60, creatinine 1.0 blood and sputum culture negative Objective - Vital Signs Vital signs: Vital Signs Temp 97.7 F 04/03/23 11:56 Pulse 84 04/03/23 12:08 Resp 18 04/03/23 11:56 BP 137/53 04/03/23 11:56 Pulse Ox 97 04/03/23 11:56 FiO2 Intake & Output 04/02/23 04/03/23 04/03/23 18:59 06:59 18:59 Output Total 400 825 Balance -400 -825 Output: Urine 400 825 Other: Voiding Method Toilet Toilet Toilet Urinal Urinal Urinal # Voids 2 1 1 - Exam GENERAL DESCRIPTION: An elderly male lying in bed in no distress RESPIRATORY SYSTEM: Unlabored breathing , coarse breath sounds bilaterally HEART: S1 S2 regular rate and rhythm , ABDOMEN: Soft , no tenderness EXTREMITIES: No edema feet - Labs CBC & Chem 7: 04/03/23 05:37 04/03/23 05:37 Labs: Abnormal Lab Results - Last 24 Hours (Table) 04/02/23 04/02/23 04/03/23 Range/Units 17:09 21:29 05:37 WBC 14.60 H (4.50-10.00) X 10*3/uL RBC 3.82 L (4.40-5.60) X 10*6/uL Hgb 11.0 L (13.0-17.0) g/dL Hct 34.9 L (39.6-50.0) % MCHC 31.5 L (32.0-37.0) g/dL Plt Count 442 H (140-440) X 10*3/uL MPV 9.0 L (9.5-12.2) FL Immature Gran # 0.26 H (0.00-0.04) X 10*3/uL Neutrophils # 12.90 H (1.80-7.70) X 10*3/uL Eosinophils # 0 L (0.04-0.35) X 10*3/uL BUN/Creatinine Ratio (12.00-20.00) Ratio Glucose (70-110) mg/dL POC Glucose (mg/dL) 160 H 114 H (70-110) mg/dL Total Bilirubin (0.3-1.2) mg/dL AST (14-35) U/L ALT (10-49) U/L Alkaline Phosphatase (41-126) U/L Total Protein (6.2-8.2) g/dL Albumin (3.8-4.9) g/dL Albumin/Globulin Ratio (1.60-3.17) Ratio 04/03/23 04/03/23 04/03/23 Range/Units 05:37 07:07 11:55 WBC (4.50-10.00) X 10*3/uL RBC (4.40-5.60) X 10*6/uL Hgb (13.0-17.0) g/dL Hct (39.6-50.0) % MCHC (32.0-37.0) g/dL Plt Count (140-440) X 10*3/uL MPV (9.5-12.2) FL Immature Gran # (0.00-0.04) X 10*3/uL Neutrophils # (1.80-7.70) X 10*3/uL Eosinophils # (0.04-0.35) X 10*3/uL BUN/Creatinine Ratio 26.70 H (12.00-20.00) Ratio Glucose 126 H (70-110) mg/dL POC Glucose (mg/dL) 128 H 134 H (70-110) mg/dL Total Bilirubin <0.2 L (0.3-1.2) mg/dL AST 60 H (14-35) U/L ALT 217 H (10-49) U/L Alkaline Phosphatase 131 H (41-126) U/L Total Protein 5.8 L (6.2-8.2) g/dL Albumin 3.1 L (3.8-4.9) g/dL Albumin/Globulin Ratio 1.15 L (1.60-3.17) Ratio Microbiology - Last 24 Hours (Table) 03/30/23 13:18 Blood Culture - Preliminary Blood 03/30/23 13:18 Blood Culture - Preliminary Blood 03/30/23 14:20 Legionella Culture - Preliminary Sputum Assessment and Plan (1) Abnormal CT scan, chest Current Visit: Yes Status: Acute Code(s): R93.89 - ABNORMAL FINDINGS ON DX IMAGING OF OTH BODY STRUCTURES SNOMED Code(s): 15435442570588649 (2) Leukocytosis Current Visit: Yes Status: Acute Code(s): D72.829 - ELEVATED WHITE BLOOD CELL COUNT, UNSPECIFIED SNOMED Code(s): 483400268 (3) Multifocal pneumonia Current Visit: Yes Status: Acute Code(s): J18.9 - PNEUMONIA, UNSPECIFIED ORGANISM SNOMED Code(s): 652053143 Plan: 1patient presented to hospital with increasing shortness of breath and weakness which is likely multifactorial in this patient currently on immunotherapy patient not running any fever or elevated white count with a question of drug effect underlying bacterial pneumonia less likely but not excluded 2sputum culture negative for resistant pathogen blood pressure for pending 3patient has shown clinical improvement wants to go home we will consider a course of oral Ceftin on discharge discussed with admitting physician 4-leukocytosis more likely steroid related as evidence of any worsening clinical condition Dictation was produced using [employer] dictation software. please excuse any grammatical, word or spelling errors. Time with Patient: Less than 30
--- NOTE | 2023-04-03 13:15 | P.EN ---
Patient seen and examined. Patient requiring oxygen for COPD, oxygenation 88% on room air and went down to 86% with activity. Patient requiring oxygen for home, patient counseled in detail regarding the need for him to use oxygen.
[2023-04-03] MEDS ORDERED: CEFEPIME 2 GM in SODIUM CHLORIDE 0.9% 100 ML IVPB SCH (21:00)
== END 2023-04-03 16:12 | disposition home or self-care (01) | DRG 193 ==
LOC: EC 11:01 → 4SSUR 15:29 → 5NMEDONC 22:37
PROVIDERS: ADMIT Internal Medicine; ATTEND Internal Medicine
DX: J15.9 Unspecified bacterial pneumonia (principal); J96.01 Acute respiratory failure with hypoxia; C64.2 Malignant neoplasm of left kidney, except renal pelvis; C66.1 Malignant neoplasm of right ureter; C85.12 Unspecified B-cell lymphoma, intrathoracic lymph nodes; J44.0 Chronic obstructive pulmonary disease with (acute) lower respiratory infection; D49.511 Neoplasm of unspecified behavior of right kidney; M19.90 Unspecified osteoarthritis, unspecified site; I71.40 Abdominal aortic aneurysm, without rupture, unspecified; J84.10 Pulmonary fibrosis, unspecified; Z11.52 Encounter for screening for COVID-19; Z71.89 Other specified counseling; Z87.891 Personal history of nicotine dependence; R94.5 Abnormal results of liver function studies; E03.9 Hypothyroidism, unspecified; E78.5 Hyperlipidemia, unspecified; I10 Essential (primary) hypertension; K22.9 Disease of esophagus, unspecified; Z79.890 Hormone replacement therapy; Z79.899 Other long term (current) drug therapy; Z86.16 Personal history of COVID-19; Z85.828 Personal history of other malignant neoplasm of skin; Z86.010 Personal history of colon polyps; Z86.19 Personal history of other infectious and parasitic diseases; Z79.52 Long term (current) use of systemic steroids
CPT/HCPCS: 36415; 71045; 71046; 71275; 76700; 80053; 80074; 80202; 82105; 83036; 83605; 83880; 84145; 84484; 85025; 85027; 85379; 85610; 85730; 86140; 87040; 87070; 87205; 87449; 87636; 93005; 94640; 94760; 96365; 96366; 96368; 96375; 99285

== ENCOUNTER → 2023-04-30 | Outpatient (CLI) | payer BC ==
[2023-04-30 19:15] LABS: ALT 122 U/L (10-49); AST 45 U/L (14-35); Albumin 3.7 g/dL (3.8-4.9); Albumin/Globulin Ratio 1.23 Ratio (1.60-3.17); Alkaline Phosphatase 93 U/L (41-126); BUN/Creat Ratio 24.78 Ratio (12.00-20.00); Blood Urea Nitrogen 22.3 mg/dL (9.0-27.0); Calcium 10.1 mg/dL (8.7-10.3); Carbon Dioxide 24.6 mmol/L (21.6-31.8); Chloride 102 mmol/L (96-109); Glucose 112 mg/dL (70-110); Sodium 139 mmol/L (135-145); Total Bilirubin <0.2 mg/dL (0.3-1.2); Total Protein 6.7 g/dL (6.2-8.2)
[2023-05-01 02:41] LABS: Eosinophils # (A) 0.13 X 10*3/uL (0.04-0.35); Eosinophils % (A) 1.3 %; HCT 39.7 % (39.6-50.0); HGB 12.6 g/dL (13.0-17.0); Lymphocytes # (A) 1.56 X 10*3/uL (0.90-5.00); Lymphocytes % (A) 15.5 %; MCH 28.7 pg (27.0-32.0); MCHC 31.7 g/dL (32.0-37.0); MCV 90.4 FL (80.0-97.0); Mean Platelet Volume 9.6 FL (9.5-12.2); Monocytes # (A) 0.69 X 10*3/uL (0.20-1.00); Monocytes % (A) 6.8 %; NRBC Per 100 WBC 0 X 10*3/uL (0.00-0.01); Neutrophils # (A) 7.16 X 10*3/uL (1.80-7.70); Neutrophils % (A) 70.9 %; Platelet Count 555 X 10*3/uL (140-440); RBC 4.39 X 10*6/uL (4.40-5.60); RDW 16.3 % (11.5-14.5); WBC 10.09 X 10*3/uL (4.50-10.00)
== END | disposition home or self-care (01) ==
LOC: LABWHC1 14:11
PROVIDERS: ATTEND Internal Medicine Endocrinology, Diabetes & Metabolism
DX: E03.8 Other specified hypothyroidism (principal); E27.3 Drug-induced adrenocortical insufficiency; J18.9 Pneumonia, unspecified organism; D72.829 Elevated white blood cell count, unspecified; R74.01 Elevation of levels of liver transaminase levels
CPT/HCPCS: 36415; 80053; 82024; 82533; 84443; 85025

== ENCOUNTER → 2023-06-01 | Outpatient (CLI) | payer BC ==
[2023-06-01 14:38] LABS: African American GFR (CKD) 78 (>60 ml/min/1.73 sqM); Blood Urea Nitrogen 19 mg/dL (9-20); Non-African American GFR(CKD) 67 (>60 ml/min/1.73 sqM)
--- NOTE | 2023-06-01 22:08 | CT ---
EXAMINATION TYPE: CT ChestAbdPelvis w con DATE OF EXAM: 06/01/2023 COMPARISON: 03/04/2023 HISTORY: 83-year-old male C65.1, Hx non-Hodgkin's lymphoma, right renal cell carcinoma, left transiti onal cell carcinoma. TECHNIQUE: Contiguous axial scanning of the chest, abdomen, and pelvis performed with IV Contrast, pa tient injected with 100ml mL of Isovue 300. Delayed images through the kidneys were obtained. Coronal /sagittal reconstructions performed. CT DLP: 1663 mGycm Automated exposure control for dose reduction was used. FINDINGS: Chest: Heart is normal size without pericardial effusion. Extensive LAD and lesser degree of RCA coronary ar mynor calcifications are present. Moderate aortic valvular calcifications. Aorta normal caliber with conventional arch vessel branching anatomy and moderate atherosclerotic arc h calcifications. Scattered nonenlarged and mildly enlarged mediastinal lymph nodes are redemonstrated measuring up to 2.0 cm subcarinal and 1.7 cm prevascular space, unchanged. No progressive thoracic adenopathy is seen . Some of the lymph nodes suggested in the AP window, prevascular space, and left hilum are calcified s uggesting sequela of prior granulomatous disease. Extensive, multifocal patchy opacity in ground glass is present, confluent areas in the bilateral low er lungs. Extensive opacities remain with some interval shifting densities. No obvious enlarging mass is seen. No pleural effusion. Background mild to moderate emphysema. Calcified granuloma medial left upper lobe. ABDOMEN: Tiny hiatal hernia. No focal liver lesion or biliary ductal dilatation. Portal venous system is paten t. Gallbladder is collapsed. Adrenal glands and pancreas within normal limits. A couple calcified granulomas in the spleen. Right-sided nephrostomy tube is present. No hydronephrosis. A couple benign right-sided renal cysts m easuring 1.7 cm and 1.3 cm. Unchanged mild urothelial thickening along the anterior wall of the right renal pelvis. Redemonstrated heterogeneously enhancing hypervascular mass midpole left kidney measuring 5.9 cm, not significantly changed. No dilated small bowel, free fluid, or free air. No mesenteric or retroperitoneal adenopathy. Cardiac moderate prostatic calcifications upper and mid abdominal aorta. Endovascular aorto biiliac stent gr aft is noted. Fusiform infrarenal abdominal aortic wrangell sac stable at 4.6 cm wide. Normal appendix. Mild overall stool burden. Sigmoid diverticulosis. No pericolonic inflammatory loaiza e. PELVIS: Bladder urine distended. 1.5 cm pleural-based mass anterior right para median bladder wall versus 9 m m, previously. Irregular mural based density along the midline posterior bladder base measures 2.8 cm versus 2.7 cm, previously. Unclear if this relates to the prostate gland or to additional urothelial lesion. No abn ormal fluid collection in the pelvis or pelvic lymphadenopathy. BONES: Moderate degenerative disc disease midthoracic spine. Facet arthropathy lower lumbar spine. No osseou s destructive process. IMPRESSION: 1. STABLE 5.9 CM RCC MIDPOLE LEFT KIDNEY. 2. UNCHANGED MILD SOFT TISSUE THICKENING ALONG THE UROTHELIUM OF THE ANTERIOR RIGHT RENAL PELVIS. 3. SLIGHTLY LARGER UROTHELIAL LESION ANTERIOR BLADDER WALL AT 1.5 CM (VERSUS 9 MM, PREVIOUSLY). IRREG ULAR MURAL DENSITY AT THE POSTERIOR MIDLINE BLADDER BASE IS FAIRLY SIMILAR AT 2.8 CM. 4. EXTENSIVE BILATERAL PATCHY AND GROUNDGLASS LUNG INFILTRATES PERSIST WITH SOME INTERVAL SHIFTING OP ACITIES. CONSIDER DRUG REACTION, HYPERSENSITIVITY PNEUMONITIS, NSIP, DRUG ABUSE SOCIAL WORKER, AND ATYPICAL/COVID PNEUMONI A SOME POSSIBLE ETIOLOGIES. 5. RIGHT-SIDED NEPHROSTOMY TUBE PRESENT. NO HYDRONEPHROSIS. 6. COPD WITH MILD EMPHYSEMA.
== END | disposition home or self-care (01) ==
LOC: RADCTMAIN 13:58
PROVIDERS: ATTEND Internal Medicine Hematology & Oncology
DX: C65.1 Malignant neoplasm of right renal pelvis (principal); J43.9 Emphysema, unspecified; J44.9 Chronic obstructive pulmonary disease, unspecified; N32.89 Other specified disorders of bladder; N28.89 Other specified disorders of kidney and ureter; M79.89 Other specified soft tissue disorders; C85.98 Non-Hodgkin lymphoma, unspecified, lymph nodes of multiple sites; C66.2 Malignant neoplasm of left ureter; R91.8 Other nonspecific abnormal finding of lung field; M12.9 Arthropathy, unspecified; Z93.6 Other artificial openings of urinary tract status; Z71.3 Dietary counseling and surveillance
CPT/HCPCS: 82565; 84520; 71260; 74177; 36415; Q9967

== ENCOUNTER → 2023-07-20 | Outpatient (CLI) | payer BC | END | disposition home or self-care (01) | LOC: LABWHC1 14:32 | PROVIDERS: ATTEND Internal Medicine Endocrinology, Diabetes & Metabolism | DX: E27.3 Drug-induced adrenocortical insufficiency (principal); E03.8 Other specified hypothyroidism | CPT/HCPCS: 36415; 82024; 82533; 84443 ==

== ENCOUNTER 2023-08-08 11:19 | Emergency (ER) | payer BC ==
[2023-08-08 11:32] VITALS: RESP 18
[2023-08-08] MEDS: oxyBUTYnin chloride 5 MG TAB PO STA (12:34)
[2023-08-08] MEDS: HYDROcodone/APAP 5-325MG 1 EACH TAB PO STA (12:34)
[2023-08-08] MEDS: CEPHALEXIN 500 MG CAP PO STA (12:34)
[2023-08-08 12:46] LABS: Appearance,Urine Clear (Clear); Bacteria,Urine Rare /hpf; Bilirubin,Urine Negative (Negative); Blood,Urine Moderate (Negative); Color,Urine Light Yellow; Glucose,Urine (UA) Negative (Negative); Ketones,Urine Negative (Negative); Leukocyte Esterase,Urine Moderate (Negative); Mucus,Urine Rare /hpf; Nitrite,Urine Negative (Negative); PH, Urine 7.5 (5.0-8.0); Protein,Urine Trace (Negative); RBC,Urine 84 /hpf (0-5); Specific Gravity,Urine 1.012 (1.001-1.035); Squamous Epithelial Cell,Urine <1 /hpf (0-4); Urobilinogen,Urine <2.0 mg/dL (<2.0); WBC,Urine 4 /hpf (0-5)
[2023-08-08] MEDS: PHENAZOPYRIDINE 200 MG TAB PO STA (12:50)
--- NOTE | 2023-08-08 13:22 | ED ---
Male Urogenital HPI - General Chief complaint: Urogenital Stated complaint: Cath issue Time Seen by Provider: 08/08/23 11:32 Source: patient, RN notes reviewed Mode of arrival: wheelchair Limitations: no limitations - History of Present Illness Initial comments: 83-year-old male presents emergency department chief complaint of penile shaft pain, catheter issues. Patient states he had cystoscopy with scar tissue removal and bladder mass surgery. Patient states that he has done earlier in the week he has worsening symptoms in which he states is worse when he stands up. The Bowers catheter has been draining no significant blood output no fever no abdominal pain. - Related Data Home Medications Medication Instructions Recorded Confirmed Tamsulosin [Flomax] 0.4 mg PO HS 12/09/19 03/30/23 Albuterol Sulfate [Albuterol 1 - 2 puff PO Q4-6H PRN 05/07/20 03/30/23 Sulfate Hfa] Fluticasone Nasal [place] [Flonase 2 spray EA NOSTRIL DAILY 03/30/23 03/30/23 Nasal [place]] Levothyroxine Sodium [Synthroid] 125 mcg PO DAILY 03/30/23 03/30/23 Previous Rx's Medication Instructions Recorded Albuterol Sulfate [Ventolin HFA] 2 puff INHALATION Q6H PRN #1 each 04/03/23 cefUROXime axetiL [Cefuroxime] 500 mg PO BID 3 Days #6 tab 04/03/23 guaiFENesin [Mucinex] 600 mg PO Q12HR 7 Days #14 tab 04/03/23 predniSONE 10 mg PO DAILY 8 Days #20 tab 04/03/23 Cephalexin [Keflex] 500 mg PO Q8HR #21 cap 08/08/23 Phenazopyridine [Pyridium] 200 mg PO TID #9 tablet 08/08/23 oxyBUTYnin chloride [Ditropan] 5 mg PO BID #10 tab 08/08/23 Allergies Allergy/AdvReac Type Severity Reaction Status Date / Time No Known Allergies Allergy Verified 03/30/23 11:20 Review of Systems ROS Statement: Those systems with pertinent positive or pertinent negative responses have been documented in the HPI. ROS Other: All systems not noted in ROS Statement are negative. Past Medical History Past Medical History: Asthma, Cancer, COPD, Hyperlipidemia, Osteoarthritis (OA), Prostate Disorder, Sleep Apnea/CPAP/BIPAP Additional Past Medical History / Comment(s): skin cancer, uses CPAP, positive cologuard, HEPATITIS A TEEN , NON HODGKIN'S LYMPHOMA, RENAL CELL CA LT KIDNEY, TRANSITIONAL CELL CA RT KIDNEY, AAA History of Any Multi-Drug Resistant Organisms: None Reported Past Surgical History: Tonsillectomy Additional Past Surgical History / Comment(s): skin cancers removed, uvulectomy & surg. for sleep apnea, COLONOSCOPY polyp removed benign, EPIDURAL INJECTIONS, BRONCHOSCOPY, CYSTOSCOPY, LT KIDNEY NEEDLE BX, cataract removal, had right kidney biopsy and lazer of tumors to the right kidney and bladder Past Anesthesia/Blood Transfusion Reactions: No Reported Reaction Past Psychological History: No Psychological Hx Reported Smoking Status: Former smoker Past Alcohol Use History: Occasional, Rare Past Drug Use History: None Reported - Past Family History Sister(s) Family Medical History: Cancer Additional Family Medical History / Comment(s): LUNG CANCER Brother(s) Family Medical History: Cancer Additional Family Medical History / Comment(s): PROSTATE CANCER x3 Father Additional Family Medical History / Comment(s): parkinsons along with a brother General Exam Limitations: no limitations General appearance: alert, in no apparent distress Head exam: Present: atraumatic, normocephalic, normal inspection Eye exam: Present: normal appearance, PERRL, EOMI. Absent: scleral icterus, conjunctival injection, periorbital swelling ENT exam: Present: normal exam, normal oropharynx, mucous membranes moist Neck exam: Present: normal inspection, full ROM. Absent: tenderness, meningi smus, lymphadenopathy Respiratory exam: Present: normal lung sounds bilaterally. Absent: respiratory distress, wheezes, rales, rhonchi, stridor Cardiovascular Exam: Present: regular rate, normal rhythm, normal heart sounds. Absent: systolic murmur, diastolic murmur, rubs, gallop, clicks GI/Abdominal exam: Present: soft, normal bowel sounds. Absent: distended, tenderness, guarding, rebound, rigid Course Vital Signs 08/08/23 08/08/23 11:29 13:38 Temperature 97.7 F 98.1 F Pulse Rate 80 76 Respiratory 18 18 Rate Blood Pressure 139/69 128/61 O2 Sat by Pulse 100 99 Oximetry Medical Decision Making - Medical Decision Making Was pt. sent in by a medical professional or institution (, [place], DRUG COORDINATOR, urgent care, hospital, or intermediate...) When possible be specific @ -No Did you speak to anyone other than the patient for history (EMS, parent, family, police, friend...)? What history was obtained from this source @ -No Did you review nursing and triage notes (agree or disagree)? Why? @ -I reviewed and agree with nursing and triage notes Were old charts reviewed (outside hosp., previous admission, EMS record, old EKG, old radiological studies, urgent care reports/EKG's, intermediate records)? Report findings @ -No old charts were reviewed Differential Diagnosis (chest pain, altered mental status, abdominal pain women, abdominal pain men, vaginal bleeding, weakness, fever, dyspnea, syncope, headache, dizziness, GI bleed, back pain, seizure, CVA, palpatations, mental health, musculoskeletal)? @ -Differential Abdominal Pain Men: Appendicitis, cholecystitis, diverticulosis, ischemic bowel, pancreatitis, hepatitis, UTI, gastroenteritis, AAA, incarcerated hernia, bowel obstruction, constipation, inflammatory bowel, hepatitis, peptic ulcer disease, splenic infarction, perforated viscus, testicular torsion, this is not meant to be an all-inclusive list EKG interpreted by me (3pts min.). @ -None X-rays interpreted by me (1pt min.). @ -None done CT interpreted by me (1pt min.). @ -None done U/S interpreted by me (1pt. min.). @ -None done What testing was considered but not performed or refused? (CT, X-rays, U/S, labs)? Why? @ -None What meds were considered but not given or refused? Why? @ -None Did you discuss the management of the patient with other professionals (professionals i.e. , SOURAV, DRUG COORDINATOR, lab, RT, psych nurse, social contact worker, cold water machine operator, teacher, military police officer, renal case manager)? Give summary @ -I discussed case with Dr. chavez recommends Pyridium, Ditropan, antibiotics as it is more likely related from procedural pain Was smoking cessation discussed for >3mins.? @ -No Was critical care preformed (if so, how long)? @ -No Were there social determinants of health that impacted care today? How? (Homelessness, low income, unemployed, alcoholism, drug addiction, transporta tion, low edu. Level, literacy, decrease access to med. care, longterm, rehab)? @ -No Was there de-escalation of care discussed even if they declined (Discuss DNR or withdrawal of care, Hospice)? DNR status @ -No What co-morbidities impacted this encounter? (DM, HTN, Smoking, COPD, CAD, Cancer, CVA, ARF, Chemo, Hep., AIDS, mental health diagnosis, sleep apnea, morbid obesity)? @ -None Was patient admitted / discharged? Hospital course, mention meds given and route, prescriptions, significant lab abnormalities, going to OR and other pertinent info. @ -Discharged patient symptoms are improved urinalysis shows hematuria patient placed on medications as recommended by urologist patient had no relief with advancement of the Bowers catheter Undiagnosed new problem with uncertain prognosis? @ -No Drug Therapy requiring intensive monitoring for toxicity (Heparin, Nitro, Insulin, Cardizem)? @ -No Were any procedures done? @ -No Diagnosis/symptom? @ -Urethral pain, urethral-itis Acute, or Chronic, or Acute on Chronic? @ -Acute Uncomplicated (without systemic symptoms) or Complicated (systemic symptoms)? @Uncomplicated Side effects of treatment? @ -No Exacerbation, Progression, or Severe Exacerbation? @ -No Poses a threat to life or bodily function? How? (Chest pain, USA, [place], pneumonia, PE, COPD, DKA, ARF, appy, cholecystitis, CVA, Diverticulitis, Homicidal, Suicidal, threat to staff... and all critical care pts) @ -No - Lab Data Lab Results 08/08/23 Range/Units 12:26 Urine Color Light Yellow Urine Appearance Clear (Clear) Urine pH 7.5 (5.0-8.0) Ur Specific [place] 1.012 (1.001-1.035) Urine Protein Trace H (Negative) Urine Glucose (UA) Negative (Negative) Urine Ketones Negative (Negative) Urine Blood Moderate H (Negative) Urine Nitrite Negative (Negative) Urine Bilirubin Negative (Negative) Urine Urobilinogen <2.0 (<2.0) mg/dL Ur Leukocyte Esterase Moderate H (Negative) Urine RBC 84 H (0-5) /hpf Urine WBC 4 (0-5) /hpf Ur Squamous Epith Cells <1 (0-4) /hpf Urine Bacteria Rare H (None) /hpf Urine Mucus Rare H (None) /hpf Disposition Clinical Impression: Urethritis, Urethral pain Disposition: HOME SELF-CARE Condition: Stable Additional Instructions: Please return to the Emergency Department if symptoms worsen or any other concerns. Prescriptions: oxyBUTYnin chloride [Ditropan] 5 mg PO BID #10 tab Cephalexin [Keflex] 500 mg PO Q8HR #21 cap Phenazopyridine [Pyridium] 200 mg PO TID #9 tablet Is patient prescribed a controlled substance at d/c from ED?: No Referrals: Isha Crane DO [Primary Care Provider] - 1-2 days Time of Disposition: 13:22
[2023-08-08] MEDS: ACET/COD 300 MG/30 MG STARTER PACK 6 TAB BTL PO STA (13:30)
[2023-08-08 13:40] VITALS: BP 128/61; PULSE 76; TEMP 98.1
== END 2023-08-08 14:14 | disposition home or self-care (01) ==
LOC: EC 11:19
DX: N34.2 Other urethritis (principal); N23 Unspecified renal colic; Z87.891 Personal history of nicotine dependence
CPT/HCPCS: 81001; 99283

== ENCOUNTER 2023-08-09 10:05 | Emergency (ER) | payer BC ==
[2023-08-09 10:10] VITALS: RESP 18; TEMP 97.9
--- NOTE | 2023-08-09 10:33 | ED ---
General Adult HPI - General Chief complaint: Urogenital Stated complaint: cath malfunction Time Seen by Provider: 08/09/23 10:12 Source: patient, family, RN notes reviewed Mode of arrival: wheelchair Limitations: no limitations - History of Present Illness Initial comments: Patient is an 83-year-old male present to the emergency department with problems regarding his Bowers catheter. Patient does have a lot of discomfort in the penis and anterior. Patient has sensation that he needs to urinate. Patient when he has a sensation is urinating around the catheter. Patient did have procedure done 5 days ago with removal of polyps and opening of urethral stricture. Patient was in the emergency department yesterday and had catheter advanced without improvement of symptoms. - Related Data Home Medications Medication Instructions Recorded Confirmed Tamsulosin [Flomax] 0.4 mg PO HS 12/09/19 03/30/23 Albuterol Sulfate [Albuterol 1 - 2 puff PO Q4-6H PRN 05/07/20 03/30/23 Sulfate Hfa] Fluticasone Nasal [place] [Flonase 2 spray EA NOSTRIL DAILY 03/30/23 03/30/23 Nasal [place]] Levothyroxine Sodium [Synthroid] 125 mcg PO DAILY 03/30/23 03/30/23 Previous Rx's Medication Instructions Recorded Albuterol Sulfate [Ventolin HFA] 2 puff INHALATION Q6H PRN #1 each 04/03/23 cefUROXime axetiL [Cefuroxime] 500 mg PO BID 3 Days #6 tab 04/03/23 guaiFENesin [Mucinex] 600 mg PO Q12HR 7 Days #14 tab 04/03/23 predniSONE 10 mg PO DAILY 8 Days #20 tab 04/03/23 Cephalexin [Keflex] 500 mg PO Q8HR #21 cap 08/08/23 Phenazopyridine [Pyridium] 200 mg PO TID #9 tablet 08/08/23 oxyBUTYnin chloride [Ditropan] 5 mg PO BID #10 tab 08/08/23 HYDROcodone/APAP 5-325MG [[place] 1 tab PO Q6HR PRN 3 Days #12 tab 08/09/23 5-325] Allergies Allergy/AdvReac Type Severity Reaction Status Date / Time No Known Allergies Allergy Verified 08/09/23 10:10 Review of Systems ROS Statement: Those systems with pertinent positive or pertinent negative responses have been documented in the HPI. ROS Other: All systems not noted in ROS Statement are negative. Constitutional: Denies: fever Eyes: Denies: eye pain ENT: Denies: ear pain Respiratory: Denies: cough Cardiovascular: Denies: chest pain Gastrointestinal: Reports: as per HPI Genitourinary: Reports: as per HPI, urgency Past Medical History Past Medical History: Asthma, Cancer, COPD, Hyperlipidemia, Osteoarthritis (OA), Prostate Disorder, Sleep Apnea/CPAP/BIPAP Additional Past Medical History / Comment(s): skin cancer, uses CPAP, positive cologuard, HEPATITIS A TEEN , NON HODGKIN'S LYMPHOMA, RENAL CELL CA LT KIDNEY, TRANSITIONAL CELL CA RT KIDNEY, AAA History of Any Multi-Drug Resistant Organisms: None Reported Past Surgical History: Tonsillectomy Additional Past Surgical History / Comment(s): skin cancers removed, uvulectomy & surg. for sleep apnea, COLONOSCOPY polyp removed benign, EPIDURAL INJECTIONS, BRONCHOSCOPY, CYSTOSCOPY, LT KIDNEY NEEDLE BX, cataract removal, had right kidney biopsy and lazer of tumors to the right kidney and bladder Past Anesthesia/Blood Transfusion Reactions: No Reported Reaction Past Psychological History: No Psychological Hx Reported Smoking Status: Former smoker Past Alcohol Use History: Occasional, Rare Past Drug Use History: None Reported - Past Family History Sister(s) Family Medical History: Cancer Additional Family Medical History / Comment(s): LUNG CANCER Brother(s) Family Medical History: Cancer Additional Family Medical History / Comment(s): PROSTATE CANCER x3 Father Additional Family Medical History / Comment(s): parkinsons along with a brother General Exam Limitations: no limitations General appearance: alert Head exam: Present: normocephalic Eye exam: Present: normal appearance Respiratory exam: Present: normal lung sounds bilaterally Cardiovascular Exam: Present: regular rate, normal rhythm GI/Abdominal exam: Present: soft. Absent: distended, tenderness exam: Present: normal inspection, other (Bowers catheter in place). Absent: testicular tenderness, urethral discharge Extremities exam: Present: normal inspection Neurological exam: Present: alert Psychiatric exam: Present: normal affect, normal mood Skin exam: Present: normal color Course Vital Signs 08/09/23 10:09 Temperature 97.9 F Pulse Rate 77 Respiratory 18 Rate Blood Pressure 99/51 O2 Sat by Pulse 97 Oximetry Medical Decision Making - Medical Decision Making Was pt. sent in by a medical professional or institution (SOURAV Campo, OFFICE COMMUNICATION PROFESSOR, urgent care, hospital, or usp...) When possible be specific @ -No Did you speak to anyone other than the patient for history (EMS, parent, family, police, friend...)? What history was obtained from this source @ - is present and helps provide history including recent procedure Did you review nursing and triage notes (agree or disagree)? Why? @ -I reviewed and agree with nursing and triage notes Were old charts reviewed (outside hosp., previous admission, EMS record, old EKG, old radiological studies, urgent care reports/EKG's, usp records)? Report findings @ -No old charts were reviewed Differential Diagnosis (chest pain, altered mental status, abdominal pain women, abdominal pain men, vaginal bleeding, weakness, fever, dyspnea, syncope, headache, dizziness, GI bleed, back pain, seizure, CVA, palpatations, mental health, musculoskeletal)? @ -Differential Abdominal Pain Men: Appendicitis, cholecystitis, diverticulosis, ischemic bowel, pancreatitis, hepatitis, UTI, gastroenteritis, AAA, incarcerated hernia, bowel obstruction, constipation, inflammatory bowel, hepatitis, peptic ulcer disease, splenic infarction, perforated viscus, testicular torsion, this is not meant to be an all-inclusive list EKG interpreted by me (3pts min.). @ -As above X-rays interpreted by me (1pt min.). @ -None done CT interpreted by me (1pt min.). @ -None done U/S interpreted by me (1pt. min.). @ -None done What testing was considered but not performed or refused? (CT, X-rays, U/S, labs)? Why? @ -Consider labs, CT or ultrasound however after discussion with Dr. Robles he does not feel this is necessary What meds were considered but not given or refused? Why? @ -None Did you discuss the management of the patient with other professionals (professionals i.e. SOURAV Campo, OFFICE COMMUNICATION PROFESSOR, lab, RT, psych nurse, social media job titles, cage shift manager, teacher, consumer loan officer, field nurse case manager)? Give summary @ -Case was discussed with patient's urologist, Dr. Burt. He states symptoms are expected. He states patient does have follow-up either Thursday or Thursday and will follow-up with patient at that time. He does request prescribing [place]. Was smoking cessation discussed for >3mins.? @ -No Was critical care preformed (if so, how long)? @ -No Were there social determinants of health that impacted care today? How? (Homelessness, low income, unemployed, alcoholism, drug addiction, transportation, low edu. Level, literacy, decrease access to med. care, half-way, rehab)? @ -No Was there de-escalation of care discussed even if they declined (Discuss DNR or withdrawal of care, Hospice)? DNR status @ -No What co-morbidities impacted this encounter? (DM, HTN, Smoking, COPD, CAD, Cancer, CVA, ARF, Chemo, Hep., AIDS, mental health diagnosis, sleep apnea, morbid obesity)? @ -None Was patient admitted / discharged? Hospital course, mention meds given and route, prescriptions, significant lab abnormalities, going to OR and other pertinent info. @ -Patient presents with postsurgical discomfort. Patient will be discharged with pain medication. Recommended close follow-up with his urologist. Undiagnosed new problem with uncertain prognosis? @ -No Drug Therapy requiring intensive monitoring for toxicity (Heparin, Nitro, Insulin, Cardizem)? @ -No Were any procedures done? @ -No Diagnosis/symptom? @ -Postoperative pain Acute, or Chronic, or Acute on Chronic? @ -All acute Uncomplicated (without systemic symptoms) or Complicated (systemic symptoms)? @ -Default Side effects of treatment? @ -No Exacerbation, Progression, or Severe Exacerbation? @ -No Poses a threat to life or bodily function? How? (Chest pain, [place], [place], pneumonia, PE, COPD, DKA, ARF, appy, cholecystitis, CVA, Diverticulitis, Homicidal, Suicidal, threat to staff... and all critical care pts) @ -No Disposition Clinical Impression: Postoperative pain Disposition: HOME SELF-CARE Condition: Stable Instructions (If sedation given, give patient instructions): Pain Management (ED), Pain Management After Surgery (DC) Additional Instructions: Please follow-up with Dr. null tomorrow. Return for fever, increased pain, worsening or changing symptoms or any other concerns. Prescriptions: HYDROcodone/APAP 5-325MG [[place] 5-325] 1 tab PO Q6HR PRN 3 Days #12 tab PRN Reason: Pain Is patient prescribed a controlled substance at d/c from ED?: Yes When asked, does pt state using other controlled substances?: Yes If prescribed controlled substance>3 days was MAPS reviewed?: Prescribed <3 Days Referrals: Isha Crane DO [Primary Care Provider] - 1-2 days Kashif Null MD [STAFF PHYSICIAN] - 1-2 days Time of Disposition: 11:49
[2023-08-09] MEDS: HYDROmorphone 1 MG/ML 1 ML SYRINGE IM STA (10:36)
[2023-08-09] MEDS: HYDROcodone/APAP 5-325MG 1 EACH TAB PO STA ×2 (11:59→12:14)
[2023-08-09 12:21] VITALS: BP 101/68; PULSE 76
== END 2023-08-09 13:00 | disposition home or self-care (01) ==
LOC: EC 10:05
DX: G89.18 Other acute postprocedural pain (principal); Z87.891 Personal history of nicotine dependence
CPT/HCPCS: 51798; 99283; 96372; J1170

== ENCOUNTER → 2023-08-31 | Outpatient (CLI) | payer BC ==
[2023-08-31 10:16] LABS: African American GFR (CKD) >90 (>60 ml/min/1.73 sqM); Blood Urea Nitrogen 17 mg/dL (9-20); Non-African American GFR(CKD) 80 (>60 ml/min/1.73 sqM)
--- NOTE | 2023-08-31 14:18 | CT ---
EXAMINATION TYPE: CT ChestAbdPelvis w con CT DLP: 866.7 mGycm, Automated exposure control for dose reduction was used. 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 Oral contrast was administered. Two-dimensional coronal an d sagittal reconstructions were obtained. Findings: CHEST: LUNGS/ PLEURA: No pneumothorax or pleural effusion. Calcified granuloma within the medial aspect of t he left upper lobe redemonstrated. Biapical pleural-parenchymal scarring. Significant improvement in previously demonstrated multifocal patchy groundglass opacities with some residual opacities demonstr ated. Stable 2.0 cm soft tissue appearing opacification with air bronchogram in the left midlung (ser ies 5, image 76). Additional increased right middle lobe 2.1 cm pleural thickening (series 5, image 4 6). Paraseptal and centrilobular emphysematous changes redemonstrated. AIRWAY: Patent and unremarkable.. HEART: Mildly prominent in size. No pericardial effusion. Extensive LAD and to a lesser degree are se en. Coronary artery calcifications are present. Moderate aortic valvular calcifications. MEDIASTINUM: Mild decrease in size of enlarged subcarinal lymph node measuring 1.5 cm short axis, pre viously 2.0 cm. Additional mildly prominent mediastinal lymph nodes are redemonstrated. Stable prevas cular space lymph node measuring 1.6 cm. Calcified mediastinal and left hilar lymph nodes redemonstra ajith likely related to prior granulomatous disease. VASCULATURE: No aortic aneurysm. Moderate atherosclerotic calcification of the aorta and its branche s. MUSCULOSKELETAL: No acute osseous abnormalities. No aggressive osseous lesion. SOFT TISSUES/LYMPH NODES: Unremarkable. LOWER NECK: No significant findings. ABDOMEN: ABDOMEN LIVER: Unremarkable GALLBLADDER AND BILE DUCTS: Unremarkable. PANCREAS: Unremarkable. SPLEEN: Scattered calcified granulomas. ADRENAL GLANDS: Unremarkable. KIDNEYS AND URETERS: No left hydronephrosis. Mild right hydroureteronephrosis with interval removal o f right nephrostomy tube. Stable right renal superior pole 1.3 cm cyst. No nephrolithiasis. Stable le ft mid pole heterogeneously enhancing renal mass measuring 5.7 x 4.6 cm, previously 5.7 x 4.6 cm when measured with similar technique. Unchanged mild urothelial thickening along the anterior wall the r ight renal pelvis. Contrast is demonstrated within both collecting systems on the delayed phase. PELVIS BLADDER: Increased size of 2.7 cm enhancing mass along the anterior right paramedian bladder wall. Pr eviously measured 1.5 cm. Irregular mural based density along the midline posterior bladder base crystal uring up to 2.6 cm again. This may represent prostate hypertrophy and impression of the bladder base versus additional urothelial lesion. No new definitive lesions identified. REPRODUCTIVE: Unremarkable. ABDOMEN & PELVIS STOMACH AND BOWEL: Small hiatal hernia, duodenum is unremarkable. Distal colonic diverticulosis witho ut evidence for acute diverticulitis. The appendix is within normal limits. Enteric contrast reaches the distal small bowel. Small bowel feces sign identified no focal transition point. No evidence of b owel obstruction. PERITONEUM: No evidence of pneumoperitoneum or free fluid. VASCULATURE: Postsurgical changes are endovascular aortobiiliac stent graft is again noted. The fusif orm infrarenal abdominal aortic [place] sac stable to marginally decreased in size measuring 4.4 cm, p reviously 4.6 cm. MUSCULOSKELETAL: No acute osseous abnormalities. No aggressive osseous lesion. LYMPH NODES: No evidence for lymphadenopathy. SOFT TISSUE/ABDOMINAL WALL: Unremarkable IMPRESSION: 1. Stable 5.7 cm RCC the midpole left kidney. 2. Interval removal right nephrostomy tube with mild hydroureteronephrosis identified. Unchanged mild soft tissue thickening along the urothelium of the anterior right renal pelvis. 3. Enlarging urothelial lesion anterior bladder wall measuring up to 2.7 cm, previously 1.5 cm. Simil ar irregular mural density in the posterior midline urinary bladder base which may represent secondar y urothelial lesion versus prostate gland indentation. 4. Improvement of multifocal groundglass opacities from prior examination with residual 2.0 cm soft t issue lesion within the left midlung corresponding to known metastatic disease. 5. COPD changes. 6. Sequelae of prior granulomatous disease. 7. Stable to marginally decreased mediastinal lymphadenopathy. 8. Postsurgical changes from aortobiiliac stent graft redemonstrated. 9. Colonic diverticulosis. Small bowel feces sign without focal transition point suggesting delayed s mall bowel transit.
== END | disposition home or self-care (01) ==
LOC: RADCTMAIN 09:29
PROVIDERS: ATTEND Internal Medicine Hematology & Oncology
DX: C66.2 Malignant neoplasm of left ureter (principal); C64.2 Malignant neoplasm of left kidney, except renal pelvis; C85.98 Non-Hodgkin lymphoma, unspecified, lymph nodes of multiple sites; E78.5 Hyperlipidemia, unspecified; M12.9 Arthropathy, unspecified; J44.9 Chronic obstructive pulmonary disease, unspecified; R59.0 Localized enlarged lymph nodes; K57.30 Diverticulosis of large intestine without perforation or abscess without bleeding; Z71.3 Dietary counseling and surveillance
CPT/HCPCS: 82565; 84520; 71260; 74177; 36415; Q9967

== ENCOUNTER → 2023-11-04 | Outpatient (CLI) | payer BC ==
[2023-11-04 15:34] LABS: African American GFR (CKD) 73 (>60 ml/min/1.73 sqM); Blood Urea Nitrogen 19 mg/dL (9-20); Non-African American GFR(CKD) 63 (>60 ml/min/1.73 sqM)
--- NOTE | 2023-11-06 09:02 | CT ---
EXAMINATION TYPE: CT abdomen pelvis without contrast. CT angiogram abdomen and pelvis with bilateral runoff. CT DLP: 1403 mGycm, Automated exposure control for dose reduction was used. DATE OF EXAM: 11/04/2023 4:39 PM COMPARISON: 08/31/2023 CLINICAL INDICATION: Male, 83 years old with history of I70.213 ATHSCL ASSINIBOINE AND [place] ARTERIES OF EXTRM W INT RMT NIK, BI L; PHH, Restricted blood flow to left femur. Unable to make 3D images due to rm2 scanne r sending error, rm1 down for maintenance. TECHNIQUE: CT abdomen pelvis without contrast followed by CT angiogram of the abdomen and pelvis with bilateral runoff. Multiple thin slice sub-millimeter images were obtained after administration of co ntrast. 3-D reconstructed images and maximum intensity projection images were obtained. CT angio abd aorta w/Runoff CT Contrast: Contrast used:125 mL of Isovue 370 with IV Contrast, Oral contrast used: None FINDINGS: CTA Abdomen and pelvis: No evidence for intramural hematoma on noncontrast imaging. Postcontrast imag ing demonstrates scattered atherosclerotic plaque. The major vessels of the abdominal aorta are paten t. There is desiccation of the origins of the renal arteries bilaterally. Blooming artifact limits ev aluation for stenosis. Infrarenal abdominal aortic aneurysm with aortobiiliac stent graft. A excluded lumen measuring up to 3.9 cm which is similar to mildly decreased when comparing to immediate prior. Aortobiiliac stent graft is patent. The common iliac vein, external iliac arteries are patent. CTA Lower extremities: Right: The common femoral and superficial femoral arteries are patent. The distal superficial femoral artery demonstrates scattered atherosclerotic plaque with less than 50% stenosis. The popliteal kait ry is patent. Anterior and posterior tibial arteries as well as the peroneal artery are patent. Anter ior and posterior tibial arteries are poorly visualized distally and did not come across ankle. Left: The common femoral and superficial femoral arteries are patent. Poor bolus timing limits evalua tion of the distal superficial femoral artery. There is somewhat long segment of sparing areas of compa nosis secondary to calcified plaque up to and possibly higher than 50% stenosis example includes exam ple includes series 8 image series 8 image 293 extending to image 327. Atherosclerotic plaque noted a long its course. The popliteal artery is patent. The posterior tibial artery is patent. Anterior tibi al artery is diminutive. The posterior tibial artery crosses the ankle. Multiples superficial varicosities veins are seen in the medial anterior aspect of this extremity. LOWER CHEST: No evidence of focal consolidation, pneumothorax or pleural effusion. LIVER: Unremarkable GALLBLADDER AND BILE DUCTS: Unremarkable. PANCREAS: Unremarkable. SPLEEN: Unremarkable. ADRENAL GLANDS: Unremarkable. KIDNEYS AND URETERS: Left renal mass measuring 55 x 51 x 49 mm which is mildly increased in size from 08/31/2023 No evidence of hydronephrosis or renal calculus. The ureters are unremarkable. PELVIS BLADDER: Gas within the lumen with mild bladder wall thickening. REPRODUCTIVE: Unremarkable. ABDOMEN & PELVIS STOMACH AND BOWEL: No evidence of bowel obstruction. PERITONEUM: No evidence of pneumoperitoneum or free fluid. VASCULATURE: No evidence of aortic aneurysm. MUSCULOSKELETAL: No acute osseous abnormalities LYMPH NODES: No gross evidence for lymphadenopathy. SOFT TISSUE/ABDOMINAL WALL: Unremarkable IMPRESSION Right lower extremity: * Poor visualization of the anterior and posterior tibial arteries on the right possibly due to poor bolus timing and poor blood flow, consider Medical Radiation Therapist angiography. Left lower extremity: * Distal left superficial femoral artery with somewhat long segment of varying degrees of stenosis a nd a narrowed caliber up to 50% stenosis and multiple areas. Evaluation limited by poor bolus timing, consider Medical Radiation Therapist angiography. * Posterior tibial artery crosses the ankle. Anterior tibial artery is diminutive., consider [facility] angiography. Abdomen * Aortobiiliac stent graft is patent. No evidence for endoleak. * Mild increase in size of left renal cysts cell carcinoma. * Mild bladder wall thickening of gastric lumen correlate for recent instrumentation correlate with urinalysis for cystitis. [facility], , 11/06/2023 9:00 AM
== END | disposition home or self-care (01) ==
LOC: RADCTMAIN 13:50
PROVIDERS: ATTEND Surgery
DX: I70.213 Atherosclerosis of native arteries of extremities with intermittent claudication, bilateral legs
CPT/HCPCS: 36415; 75635; 82565; 84520

== ENCOUNTER → 2023-11-30 | Outpatient (CLI) | payer BC ==
[2023-11-30 11:56] LABS: African American GFR (CKD) 80 (>60 ml/min/1.73 sqM); Blood Urea Nitrogen 17 mg/dL (9-20); Non-African American GFR(CKD) 69 (>60 ml/min/1.73 sqM)
--- NOTE | 2023-11-30 14:37 | CT ---
EXAMINATION TYPE: CT ChestAbdPelvis w con DATE OF EXAM: 11/30/2023 COMPARISON: 08/31/2023 HISTORY: f/u renal ca, lymphoma CT DLP: 850.7 mGycm Automated exposure control for dose reduction was used. CONTRAST: CT scan of the chest, abdomen and pelvis is performed with Oral Contrast and with IV Contrast, patien t injected with 100 mL of Isovue 300. FINDINGS: CT chest: There are moderate emphysematous changes. There are multiple stable lung masses including, a 19 mm spiculated mass in the in the lingula, a 13 mm subpleural parenchymal nodule in the right upper lobe medially, a 3 mm nodule in the right upper and a 21 mm mass adjacent to the right hemidiaphragm. No new lung masses are seen.. There is a stable 20 mm subcarinal lymph node. There are calcified medi astinal and hilar nodes and calcified granulomas within the lung consistent with prior granulomatous exposure. There is no pleural effusion, pleural thickening or pneumothorax. The great vessels and chest are normal. There is no definite pulmonary embolus. CT abdomen and pelvis: There is a stable 5.7 cm mid left renal mass consistent with renal cell carcinoma. There is an aortic stent graft and a stable [place] or 0.5 cm aneurysm. There is no retroperitoneal ad enopathy or hemorrhage. The bowel loops are normal. There is no free intraperitoneal air or fluid. There is mild prostatic hypertrophy. There is a stable 2.7 cm mass within the anterior aspect of the urinary bladder. No focal osseous lesions are seen. IMPRESSION: 1. Stable 5.7 cm mid pole left renal mass consistent with renal cell carcinoma. 2. Stable 2.7 cm mass within the urinary bladder. 3. Stable multiple pulmonary nodules and masses consistent with stable metastatic disease 4. Stable subcarinal lymphadenopathy. 5. Stable [place] aortic aneurysm with aortoiliac stent graft [facility], , 11/30/2023 2:34 PM
== END ==
LOC: RADCTMAIN 11:27
PROVIDERS: ATTEND Internal Medicine Hematology & Oncology
DX: C64.2 Malignant neoplasm of left kidney, except renal pelvis
CPT/HCPCS: 36415; 71260; 74177; 82565; 84520

== ENCOUNTER 2024-01-26 06:21 | Day surgery (SDC) | payer BC ==
--- NOTE | 2024-01-25 21:27 | P.HPIHPCON ---
History of Present Illness H&P Date: 01/25/24 Chief Complaint: Bladder cancer, urethral stricture This is a 83-year-old male with a very complicated urological history he has a known history of 5.7 cm left-sided renal cell carcinoma, and evidence of right- sided transitional cell carcinoma status post Percutaneous resection, multiple ureteroscopic intervention and Jelmyto, his right kidney is currently in remission. 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 Underwent a recent CT abdomen pelvis that showed evidence of a 2.7 cm bladder mass. He has a known history also of a significant bulbar and penile urethral stricture. Discussed with him given the finding on CT I do recommend proceeding with a transurethral resection of the bladder tumor. Discussed we will have to address his urethral stricture prior to proceeding with a TURBT, discussed I will be performing urethral dilation and DVIU. Discussed given his significant scarring there is a potential need for perineal ureterostomy in order to do the TURBT. Discussed also given the anterior location of the bladder the tumor may be unresectable. Aware of the risk which includes but not limited to bleeding, infection, bladder perforation and the potential of inability to perform the procedure. He understood all the risk and agreed to proceed Consent for Procedure: I have explained the operation/procedure to the patient, including the risks, benefits, side effects, alternative therapies (including not receiving the proposed treatment or service), the likelihood of the patient achieving his/her goals, and potential recuperation problems for the procedure/sedation/analgesia, as well as any blood products, if indicated. I also explained to the patient the risks, benefits and side effects of the alternatives, as well as the risks related to not receiving the proposed procedure, care, treatment, or services. 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 for sleep apnea, COLONOSCOPY polyp removed benign, EPIDURAL INJECTIONS, BRONCHOSCOPY, CYSTOSCOPY, LT KIDNEY NEEDLE BX, cataract removal, had right kidney biopsy and laser of tumors to the right kidney and bladder, aortic aneurysm stent 2022, gelmito injections Rt. kidney sac 2023, "femoral artery constricted" Past Anesthesia/Blood Transfusion Reactions: Previous Problems w/ Anesthesia Additional Past Anesthesia/Blood Transfusion Reaction / Comment(s): states he had difficulty coming out of anesthesia only w/ aortic aneurysm stent @ [facility] in 2022, had 2 panic attacks and had never experienced this before or since Smoking Status: Former smoker - Past Family History Sister(s) Family Medical History: Cancer Additional Family Medical History / Comment(s): LUNG CANCER. another sister Parkinsons Brother(s) Family Medical History: Cancer Additional Family Medical History / Comment(s): PROSTATE CANCER x 3 brothers. 1 brother Parkinsons Father Family Medical History: CVA/TIA Additional Family Medical History / Comment(s): Parkinsons Medications and Allergies Home Medications Medication Instructions Recorded Confirmed Type Tamsulosin [Flomax] 0.4 mg PO HS 12/09/19 01/22/24 History Albuterol Sulfate [Albuterol 1 - 2 puff PO Q4-6H PRN 05/07/20 01/22/24 History Sulfate Hfa] Fluticasone Nasal [place] [Flonase 2 spray EA NOSTRIL DAILY PRN 03/30/23 01/22/24 History Nasal [place]] Levothyroxine Sodium [Synthroid] 75 mcg PO DAILY 03/30/23 01/22/24 History Aspirin [Adult Low Dose Aspirin EC] 81 mg PO DAILY 01/22/24 01/22/24 History Atorvastatin [Lipitor] 40 mg PO HS 01/22/24 01/22/24 History Cyanocobalamin (Vitamin B-12) 1,000 mcg PO DAILY 01/22/24 01/22/24 History [Vitamin B-12] Ibuprofen/Diphenhydramine Cit 1 dose PO DAILY 01/22/24 01/22/24 History [Ibuprofen Pm [place]] Multivitamin [Multivitamins Adult 1 tab PO DAILY 01/22/24 01/22/24 History Gummies] Allergies Allergy/AdvReac Type Severity Reaction Status Date / Time No Known Allergies Allergy Verified 01/22/24 10:34 Surgical - Exam - General no distress, no pain - Eyes normal ocular movement, no pale - ENT normal nares, normal mucosa - Respiratory normal expansion, normal respiratory effort - Abdomen Abdomen: soft, non tender Assessment and Plan Assessment: OR for TURBT DVIU
[2024-01-26] MEDS ORDERED: MIDAZOLAM 2 MG/2 ML VIAL IV PRN (07:00)
[2024-01-26] MEDS ORDERED: HYDROmorphone 0.5 MG/0.5 ML SYRINGE IVP PRN (07:00)
[2024-01-26] MEDS: IV FLUID CONTINUATION 1,000 ML IV ONE ×2 (07:05→08:57)
[2024-01-26] MEDS: ONDANSETRON 4 MG/2 ML VIAL IVP ONE (07:08)
[2024-01-26] MEDS: LACTATED RINGERS 1,000 ML IV SCH (07:08)
[2024-01-26] MEDS: DEXAMETHASONE SOD PHOSPHATE 4 MG/ML 1 ML VIAL IV ONE (07:08)
[2024-01-26] MEDS ORDERED: PROPOFOL 10 MG/ML 20 ML VIAL IV ONE (07:25)
[2024-01-26] MEDS ORDERED: fentaNYL (PF) 50 MCG/ML 2 ML AMP ONE (07:25)
[2024-01-26] MEDS ORDERED: PHENYLEPHRINE-0.9% NACL SYG 1,000 MCG/10 ML SYRINGE ONE (07:25)
[2024-01-26] MEDS ORDERED: LIDOCAINE 1% INJ 10MG/ML (20 ML MDV) ONE (07:25)
[2024-01-26] MEDS ORDERED: MIDAZOLAM 2 MG/2 ML VIAL ONE (07:25)
[2024-01-26] MEDS ORDERED: SUCCINYLCHOLINE CHLORIDE 200 MG/10 ML VIAL IV ONE (07:25)
[2024-01-26 09:06] VITALS: TEMP 97.5
--- NOTE | 2024-01-26 09:11 | P.OP ---
Date of Procedure: 01/26/24 Preoperative Diagnosis: Bladder cancer, urethral stricture Postoperative Diagnosis: Same Procedure(s) Performed: DVIU, TURBT (large) Implants: None Anesthesia: CONYA Surgeon: Kashif Null Estimated Blood Loss (ml): 25 Pathology: other (bladder tumor) Condition: stable Disposition: PACU Indications for Procedure: This is a 83-year-old male with a very complicated urological history he has a known history of 5.7 cm left-sided renal cell carcinoma, and evidence of right- sided transitional cell carcinoma status post Percutaneous resection, multiple ureteroscopic intervention and Jelmyto, his right kidney is currently in remission. 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 Underwent a recent CT abdomen pelvis that showed evidence of a 2.7 cm bladder mass. He has a known history also of a significant bulbar and penile urethral stricture. Discussed with him given the finding on CT I do recommend proceeding with a transurethral resection of the bladder tumor. Discussed we will have to address his urethral stricture prior to proceeding with a TURBT, discussed I will be performing urethral dilation and DVIU. Discussed given his significant scarring there is a potential need for perineal ureterostomy in order to do the TURBT. Discussed also given the anterior location of the bladder the tumor may be unresectable. Aware of the risk which includes but not limited to bleeding, infection, bladder perforation and the potential of inability to perform the procedure. He understood all the risk and agreed to proceed Operative Findings: Large tumor along dome, two additional satellite lesion along posterior bladder wall Description of Procedure: Patient brought the operating room, general anesthesia was induced. He was prepped and draped in sterile fashion and placed in a dorsal lithotomy position. At this point using the [place] sounds the meatal stenosis was dilated to 28 [place] starting with 14 [place] and going up sequentially. At this time the DVIU scope fitted with 21 [place] sheath was inserted per urethra, at this point a dense bulbar stricture was encountered bulbar stricture was approximately 18 [place] in diameter, using a DVIU knife scar was incised, this point the cystoscope was advanced into the bladder, cystoscopy was performed which showed a large tumor along the dome and 2 additional satellite lesions along the posterior bladder wall, this point the DVIU scope was removed and the resectoscope fitted with a 25 [place] sheath was inserted per urethra and advanced into the bladder, cystoscopy was performed which showed the bladder tumors, using the bipolar resectoscope the tumor along the dome and the 2 satellite lesions were resected down to muscle, area of resection will fulgurated, all tumor specimen was irrigated out, repeat cystoscopy showed no evidence of bleeding any additional tumors or any tumor specimen. Total area of resection was 6 cm. At this time the resectoscope was withdrawn and a 20 [place] Bowers was placed with a return of clear urine. The catheter was irrigated to clear. Patient tolerated procedure well was taken to recovery in stable condition
[2024-01-26 09:49] VITALS: RESP 16
[2024-01-26] MEDS: HYDROcodone/APAP 5-325MG 1 EACH TAB PO STA (10:04)
[2024-01-26 10:24] VITALS: BP 164/78; PULSE 67
== END 2024-01-26 10:49 | disposition home or self-care (01) ==
LOC: OR 06:21
PROVIDERS: ATTEND Urology
DX: C67.9 Malignant neoplasm of bladder, unspecified (principal); N35.919 Unspecified urethral stricture, male, unspecified site; J44.89 Other specified chronic obstructive pulmonary disease; G47.33 Obstructive sleep apnea (adult) (pediatric); I71.40 Abdominal aortic aneurysm, without rupture, unspecified; E78.5 Hyperlipidemia, unspecified; C85.90 Non-Hodgkin lymphoma, unspecified, unspecified site; M19.90 Unspecified osteoarthritis, unspecified site; R19.5 Other fecal abnormalities; Z90.89 Acquired absence of other organs; Z86.0100 Personal history of colon polyps, unspecified; Z87.891 Personal history of nicotine dependence; Z80.1 Family history of malignant neoplasm of trachea, bronchus and lung; Z85.528 Personal history of other malignant neoplasm of kidney; Z82.3 Family history of stroke; Z99.89 Dependence on other enabling machines and devices; Z79.02 Long term (current) use of antithrombotics/antiplatelets; Z79.82 Long term (current) use of aspirin; Z79.1 Long term (current) use of non-steroidal anti-inflammatories (NSAID); Z79.890 Hormone replacement therapy; Z79.899 Other long term (current) drug therapy
CPT/HCPCS: 88307; 52240; J2250; J0330; J1100; J0690; J2405; J2003; J3010; J2704; J2371

== ENCOUNTER → 2024-03-02 | Outpatient (CLI) | payer BC ==
[2024-03-02 12:13] LABS: African American GFR (CKD) 77 (>60 ml/min/1.73 sqM); Blood Urea Nitrogen 19 mg/dL (9-20); Non-African American GFR(CKD) 66 (>60 ml/min/1.73 sqM)
--- NOTE | 2024-03-02 14:26 | CT ---
EXAMINATION TYPE: CT ChestAbdPelvis w con DATE OF EXAM: 03/02/2024 COMPARISON: 11/30/2023 HISTORY: f/u renal ca CT DLP: 868.3 mGycm Automated exposure control for dose reduction was used. CONTRAST: CT scan of the chest, abdomen and pelvis is performed with Oral Contrast and with IV Contrast, patien t injected with 100 mL of Isovue 300. FINDINGS: CT chest: There are moderate emphysematous changes with an upper lobe predominance. There is no change in the right middle lobe pleural-based density, no change in the ill-defined left hilar density or in the 19-20 mm left lingular nodule. There is no airspace consolidation. There is no pleural effusion or pneumothorax. The great vessels the chest are normal. There is a stable 14 mm subcarinal lymph node. No focal osseous lesions are seen. CT abdomen and pelvis: Gallbladder is normal without distention, pericholecystic fluid, wall thickening or gallstone. There is no biliary ductal dilatation. There is no focal mass or organomegaly involving the liver, pancreas, spleen or adrenal glands.. There is no solid renal mass or hydronephrosis. There is no retroperitoneal or significant interval c hange in the left renal mass which measures approximately 6 cm x 5 cm. There is no change in the aortoiliac stent graft or [place] aneurysm. There is no retroperitoneal elieser opathy or hemorrhage. The bowel loops are normal in caliber and there is no dilatation or obstruction. No inflammatory pratt ges identified in the bowel wall and mesentery. There is no free intracranial air or fluid. There is no pelvic mass or adenopathy. There is no free fluid within the pelvis. The mass in the ante rior urinary bladder has resolved in the interval. No focal osseous lesions are seen. Soft tissue the abdomen and pelvis are normal. IMPRESSION: 1. Stable lung nodules and emphysematous changes. 2. Stable left renal mass highly suspicious for neoplasm 3. Resolution of the bladder mass seen on the prior study. 4. Stable mild subcarinal lymphadenopathy. 5. No new lesions. 6. No osseous lesions. [facility], , 03/02/2024 2:24 PM
== END | disposition home or self-care (01) ==
LOC: RADCTMAIN 11:22
PROVIDERS: ATTEND Internal Medicine Hematology & Oncology
DX: C85.98 Non-Hodgkin lymphoma, unspecified, lymph nodes of multiple sites (principal); C64.2 Malignant neoplasm of left kidney, except renal pelvis; C66.2 Malignant neoplasm of left ureter; R59.0 Localized enlarged lymph nodes; Z71.3 Dietary counseling and surveillance; R91.8 Other nonspecific abnormal finding of lung field; R59.1 Generalized enlarged lymph nodes
CPT/HCPCS: 82565; 84520; 71260; 74177; 36415; Q9967

== ENCOUNTER 2024-05-18 05:45 | Inpatient (IN) | payer BC ==
[2024-05-16 12:50] VITALS: BMI 26.6
[2024-05-18] MEDS: IV FLUID CONTINUATION 1,000 ML IV ONE ×4 (06:12)
[2024-05-18 07:10] LABS: HCT 37.8 % (39.0-53.0); HGB 12.8 gm/dL (13.0-17.5); MCH 32.5 pg (25.0-35.0); MCHC 33.8 g/dL (31.0-37.0); MCV 96.2 fL (80.0-100.0); Mean Platelet Volume 7.4; Platelet Count 396 k/uL (150-450); RBC 3.93 m/uL (4.30-5.90); RDW 15.8 % (11.5-15.5); WBC 6.7 k/uL (3.8-10.6)
[2024-05-18] MEDS: LACTATED RINGERS 1,000 ML IV SCH (07:17)
[2024-05-18] MEDS: MIDAZOLAM 2 MG/2 ML VIAL IV PRN (08:11)
--- NOTE | 2024-05-18 08:33 | P.ANPRN ---
Procedure Note - Anesthesia - Invasive Line Left Arterial Line Time Out Performed: Yes Date of Procedure: 05/18/24 Time of Procedure: 08:07 Location of Patient: PreOp Preparation: Sterile Prep Arterial Line Location: Radial Ultrasound Used: Yes Purpose - Visualization and Identification of Vasculature: Yes Image Stored and Saved: Yes Narrative: Invasive line placement per sterile protocol utilized. [id number].
[2024-05-18] MEDS: ONDANSETRON 4 MG/2 ML VIAL IVP ONE (09:52)
[2024-05-18] MEDS: DEXAMETHASONE SOD PHOSPHATE 4 MG/ML 1 ML VIAL IV ONE (09:53)
[2024-05-18] MEDS ORDERED: PROPOFOL 10 MG/ML 20 ML VIAL IV ONE (10:10)
[2024-05-18] MEDS ORDERED: SUCCINYLCHOLINE CHLORIDE 200 MG/10 ML VIAL IV ONE (10:10)
[2024-05-18] MEDS ORDERED: PHENYLEPHRINE 10 MG/ML VIAL ONE (10:10)
[2024-05-18] MEDS ORDERED: fentaNYL (PF) 50 MCG/ML 2 ML AMP ONE (10:10)
[2024-05-18] MEDS ORDERED: HEPARIN SODIUM,PORCINE 10,000 UNIT/ML 1 ML VIAL ONE (10:10)
[2024-05-18] MEDS ORDERED: GLYCOPYRROLATE 0.2 MG/ML 2 ML VIAL ONE (10:10)
[2024-05-18] MEDS ORDERED: LIDOCAINE 1% INJ 10MG/ML (20 ML MDV) ONE (10:10)
[2024-05-18] MEDS ORDERED: NEOSTIGMINE 1 MG/ML 10 ML VIAL ONE (10:10)
[2024-05-18] MEDS ORDERED: ROCURONIUM 10 MG/ML (5 ML VIAL) IV ONE (10:10)
[2024-05-18] MEDS: THROMBIN (BOVINE) 5,000 UNIT VIAL TOPICAL ONE ×2 (10:12→10:40)
[2024-05-18] MEDS: LACTATED RINGERS 1,000 ML IV ONE (12:02)
[2024-05-18] MEDS: IOPAMIDOL-370 100ML BTL MISCELLANE ONE ×2 (12:06)
--- NOTE | 2024-05-18 12:37 | P.OP ---
Date of Procedure: 05/18/24 Preoperative Diagnosis: Disabling claudication Myron classification 3 Left common femoral artery occlusion Postoperative Diagnosis: Disabling claudication Outing classification 3 Left common femoral artery occlusion Left SFA stenosis 30% with calcific disease at the Satish's canal Procedure(s) Performed: Left common femoral, profundus femoris and SFA endarterectomy and patch angioplasty Selective iliofemoral and femoral-tibial angiogram Anesthesia: GETA Surgeon: Kin Clark Estimated Blood Loss (ml): 100 Pathology: other (Femoral plaque) Condition: stable Disposition: PACU Indications for Procedure: 84-year-old gentleman with history of occlusive disease, peripheral arterial disease and claudication underwent CT angiogram and arterial Doppler which demonstrated significant stenosis at the left common femoral artery. On CT scan it was noted to be occluded with reconstitution at the SFA. He presents today for endarterectomy and patch angioplasty with possible intervention of the distal SFA. Operative Findings: Dense calcification and occlusion of the common femoral artery with profundus femoris extension and SFA. Calcification noted at the mid SFA without any severe stenosis. Brisk flow throughout to the foot with two-vessel runoff. Description of Procedure: After written and informed consent was obtained from the patient all risks benefits and complications were described the patient is brought to the operative suite and laid in a supine position. The area of the abdomen, left lower extremity was prepped and draped in usual sterile fashion after appropriate anesthetic was performed per the anesthesiologist. A timeout was performed in normal fashion. Antibiotics were administered prior to incision. A oblique incision was created at the left groin and dissection was carried down to the common femoral artery. The common femoral, superficial femoral and profundus femoris arteries were dissected free in a circumferential manner and controlled with vessel loops. Patient was administered heparin and followed with serial ACT's. Once over 200 proximal and distal control was clamped. Arteriotomy was created with 11 blade scalpel and extended with Christianson Metzenbaums scissors. Dense calcific occlusive plaque was encountered. Endarterectomy was then performed with an endarterectomy knife and plaque was removed from the common femoral, profundus femoris with eversion technique and SFA. The distal aspect of the SFA was feathered and tacked with 7-0 Prolene in normal fashion. Outflow and inflow was assessed and was brisk. There was dense calcification at the external iliac artery which was grasped and removed with stat. Good inflow was noted to be pulsatile. All free debris was removed and patch angioplasty was performed with 6-0 Prolene suture in a running fashion with bovine pericardial patch. Once completed a butterfly needle was placed and selective angiogram was obtained of the iliac, femoral, SFA and tibial vessels. Good brisk flow was noted throughout the entirety of the left lower extremity arterial system with some calcific disease noted at the external iliac and mid SFA. There was two-vessel runoff to the foot which was brisk. At that point th e butterfly needle was removed and 7-0 Prolene was utilized to close the access point. The area was then copiously irrigated with antibiotic solution. Hemostasis was assured with Gelfoam and thrombin. Incision site was then closed in a multilayer fashion. The skin was cleansed and dressed with a Prevena incisional VAC. The patient taught the procedure well and had palpable DP and PT pulse on the left at the conclusion of the procedure.
[2024-05-18] MEDS ORDERED: HYDROcodone/APAP 5-325MG 1 EACH TAB PO PRN (12:38)
[2024-05-18] MEDS ORDERED: FLUTICASONE NASAL 50MCG/SPRAY 16GM BTL EA NOSTRIL PRN (12:41)
[2024-05-18] MEDS: HYDROmorphone 0.5 MG/0.5 ML SYRINGE IVP PRN (13:08)
--- NOTE | 2024-05-18 15:12 | FL ---
EXAMINATION TYPE: FL guidance operating room DATE OF EXAM: 05/18/2024 FLUOROSCOPY L FEMORAL, 1MIN 1SEC FL TIME, DAP=[phone] images submitted. [facility], , 05/18/2024 3:10 PM
[2024-05-18] MEDS: diphenhydrAMINE 25 MG CAP PO SCH (19:31)
[2024-05-18] MEDS: TAMSULOSIN 0.4 MG CAP.ER.24H PO SCH (19:31)
[2024-05-18] MEDS: IBUPROFEN 400 MG TAB PO SCH (19:31)
[2024-05-18] MEDS: ATORVASTATIN 40 MG TAB PO SCH (19:31)
[2024-05-19] MEDS: LEVOTHYROXINE 100 MCG TAB PO SCH (06:12)
[2024-05-19] MEDS: CYANOCOBALAMIN 500 MCG TAB PO SCH (08:33)
[2024-05-19] MEDS: MULTIVITAMINS, THERA 1 EACH TAB PO SCH (08:33)
[2024-05-19] MEDS: CLOPIDOGREL 75 MG TAB PO SCH (08:33)
[2024-05-19] MEDS: ASPIRIN 81 MG PO SCH (08:33)
[2024-05-19] MEDS ORDERED: ACETAMINOPHEN TAB 500 MG TAB PO PRN (08:35)
[2024-05-19 09:11] VITALS: BP 159/66; PULSE 68; RESP 17; TEMP 97.5
--- NOTE | 2024-05-19 10:07 | P.DS ---
Providers Date of admission: 05/18/24 05:45 Expected date of discharge: 05/19/24 Attending physician: Kin Clark DO Consults: 05/18/24 13:18 Consult Physician Routine Consulting Provider: López Rios Consult Reason/Comments: Medical management Do you want consulting provider notified?: Yes Primary care physician: Isha [place] Hospital Course: Pleasant 84-year-old male with history of occlusive disease and peripheral arterial disease with claudication and significant stenosis of the left femoral artery. He was scheduled for outpatient endarterectomy with patch angioplasty. He is postop day #1 with findings of left common femoral artery occlusion with left SFA stenosis 30% was calcific disease at the Satish's canal. He underwent a left common femoral, profundus for David and SFA endarterectomy with patch angioplasty and selective iliofemoral and femoral-tibial angiogram. Patient states he has no pain. He has some tenderness in the left groin otherwise he has been up and ambulating in his room. He is voiding without difficulty. Tolerating a regular diet. Vital signs are stable. He is also now ambulated in the hallway with improvement in his pain. He is not requiring any narcotics for pain management. Discussed with patient we will be starting him on Plavix recommend discontinuing his ibuprofen and using acetaminophen for his arthritic pain. Denies any shortness of breath or chest pain. No abdominal pain nausea or vomiting. Plan for discharge. Exam General appearance: The patient is alert, oriented, appears in no acute distres s. HET: Head is normocephalic and atraumatic. Pupils are equal and reactive. Neck: Supple. Heart: Regular. Lungs: Equal expansion, normal respiratory effort. Expiratory wheeze. Abdomen: Soft, nontender, nondistended. Extremities: Normal skin color and turgor. Left groin with Prevena wound VAC, without any surrounding ecchymosis or hematoma. Palpable PT and DP pulse Neurological: No focal deficits. Strength and sensation are grossly intact. Assessment 1. Left common femoral, profunda femoris and SFA endarterectomy and patch angioplasty 2. Left common femoral artery occlusion, left SFA stenosis 30% with calcific disease at the Satish's canal 3. Disabling claudication Myron classification 3 4. Former smoker 5. Non-Hodgkin's lymphoma 6. Lung cancer 7. Hypothyroidism 8. Obstructive sleep apnea Plan Encourage ambulation. Discharge instructions reviewed with patient and he verbalized understanding. Will start Plavix 75 mg daily. Discussed with patient to discontinue ibuprofen for pain and use acetaminophen. Continue heart healthy diet. Plan for discharge today. Follow-up with vascular surgeon in 2 weeks. The impression and plan of care has been dictated as directed. I performed a history and examination of this patient, discussed the same with the dictator. I agree with the dictator's note ,documented as a scribe. Any additional findings or plans will be noted. Procedures: Left common femoral, profundus femoris and SFA endarterectomy and patch angioplasty Selective iliofemoral and femoral-tibial angiogram Plan - Discharge Summary Discharge Rx Participant: Yes New Discharge Prescriptions: New Clopidogrel [Plavix] 75 mg PO DAILY #30 tab Continue Atorvastatin [Lipitor] 40 mg PO HS Multivitamin [Multivitamins Adult Gummies] 1 tab PO DAILY Fluticasone Nasal [place] [Flonase Nasal [place]] 2 spray EA NOSTRIL DAILY PRN PRN Reason: Congestion Cyanocobalamin (Vitamin B-12) [Vitamin B-12] 1,000 mcg PO DAILY Aspirin [Adult Low Dose Aspirin EC] 81 mg PO DAILY Levothyroxine Sodium [Synthroid] 100 mcg PO DAILY Discontinued Ibuprofen/Diphenhydramine Cit [Ibuprofen Pm Caplet] 1 cap PO HS No Action Tamsulosin [Flomax] 0.4 mg PO HS Albuterol Sulfate [Albuterol Sulfate Hfa] 1 - 2 puff PO Q4-6H PRN PRN Reason: Shortness Of Breath Discharge Medication List Tamsulosin [Flomax] 0.4 mg PO HS 12/09/19 [History] Albuterol Sulfate [Albuterol Sulfate Hfa] 1 - 2 puff PO Q4-6H PRN 05/07/20 [History] Fluticasone Nasal [place] [Flonase Nasal [place]] 2 spray EA NOSTRIL DAILY PRN 03/30/23 [History] Aspirin [Adult Low Dose Aspirin EC] 81 mg PO DAILY 01/22/24 [History] Atorvastatin [Lipitor] 40 mg PO HS 01/22/24 [History] Cyanocobalamin (Vitamin B-12) [Vitamin B-12] 1,000 mcg PO DAILY 01/22/24 [History] Multivitamin [Multivitamins Adult Gummies] 1 tab PO DAILY 01/22/24 [History] Levothyroxine Sodium [Synthroid] 100 mcg PO DAILY 05/16/24 [History] Clopidogrel [Plavix] 75 mg PO DAILY #30 tab 05/19/24 [Rx] Follow up Appointment(s)/Referral(s): Kin Clark DO [STAFF PHYSICIAN] - 1 Week Patient Instructions/Handouts: Clopidogrel (By mouth), Remote Superficial Femoral Artery Endarterectomy (DC) Activity/Diet/Wound Care/Special Instructions: No driving for two weeks Avoid heavy lifting greater than 10 lbs , pushing, pulling, straining, flights of stairs for 2 weeks ok to shower tomorrow but no baths, pools, soaking in tubs until cleared by surgeon to avoid risk of infection. signs of infection ie: fever, rash, drainage from surgical site, swelling contact doctor or return to ER immediately. Heavy bleeding from surgical site apply firm direct pressure and return to ER. Do not attempt to drive self. low sodium/low fat diet Keep Prevena wound VAC in place to left groin for 6 days. May discontinue on May 24, 2024 and throw away. recommend discontinuing ibuprofen and taking acetaminophen for pain Discharge Disposition: HOME SELF-CARE
== END 2024-05-19 11:02 | disposition home or self-care (01) | DRG 271 ==
LOC: 2ORMAIN 05:45 → 3SCARD 15:49
PROVIDERS: ADMIT Surgery; ATTEND Surgery
PROC: 04UL3JZ Supplement Left Femoral Artery with Synthetic Substitute, Percutaneous Approach (ICD-10-PCS; 2024-05-18)
PROC: 4A133B1 Monitoring of Arterial Pressure, Peripheral, Percutaneous Approach (ICD-10-PCS; 2024-05-18)
PROC: 4A133J1 Monitoring of Arterial Pulse, Peripheral, Percutaneous Approach (ICD-10-PCS; 2024-05-18)
PROC: 03HY32Z Insertion of Monitoring Device into Upper Artery, Percutaneous Approach (ICD-10-PCS; 2024-05-18)
PROC: B41G1ZZ Fluoroscopy of Left Lower Extremity Arteries using Low Osmolar Contrast (ICD-10-PCS; 2024-05-18)
PROC: B41C1ZZ Fluoroscopy of Pelvic Arteries using Low Osmolar Contrast (ICD-10-PCS; 2024-05-18)
PROC: 04CY3ZZ Extirpation of Matter from Lower Artery, Percutaneous Approach (ICD-10-PCS; principal; 2024-05-18 07:30)
DX: I70.212 Atherosclerosis of native arteries of extremities with intermittent claudication, left leg (principal); C34.90 Malignant neoplasm of unspecified part of unspecified bronchus or lung; C85.90 Non-Hodgkin lymphoma, unspecified, unspecified site; I70.209 Unspecified atherosclerosis of native arteries of extremities, unspecified extremity; E03.9 Hypothyroidism, unspecified; I77.1 Stricture of artery; G47.33 Obstructive sleep apnea (adult) (pediatric); Z87.891 Personal history of nicotine dependence
CPT/HCPCS: 85027; 86850; 86900; 86901; 88304; 88311

== ENCOUNTER → 2024-06-08 | Outpatient (CLI) | payer BC ==
[2024-06-08 11:11] LABS: African American GFR (CKD) >90 (>60 ml/min/1.73 sqM); Blood Urea Nitrogen 17 mg/dL (9-20); Non-African American GFR(CKD) 79 (>60 ml/min/1.73 sqM)
--- NOTE | 2024-06-08 15:10 | CT ---
EXAMINATION TYPE: CT ChestAbdPelvis w con CT DLP: 1662 mGycm, Automated exposure control for dose reduction was used. DATE OF EXAM: 06/08/2024 12:30 PM COMPARISON: Multiple CT chest abdomen pelvis most recent 03/02/2024. 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 Oral contrast was administered. Two-dimensional coronal an d sagittal reconstructions were obtained. Findings: CHEST: LUNGS/ PLEURA: No pneumothorax or pleural effusion. Calcified granuloma within the medial aspect of t he left upper lobe redemonstrated. Biapical pleural-parenchymal scarring. Stable lingular 2.0 cm nora id pulmonary nodule (series 4, image 34). Similar irregular pleural based opacity within the medial a spect of the right upper lobe (series 4, image 15). No significant change in left perihilar irregular soft tissue (series 4, image 26). Mild to moderate paraseptal and centrilobular emphysematous change s redemonstrated. AIRWAY: Patent and unremarkable.. HEART: Mildly prominent in size. No pericardial effusion. Moderate coronary artery calcifications. Mo st pronounced in the LAD. Moderate aortic valvular calcifications. MEDIASTINUM: Stable mildly prominent subcarinal lymph node measuring up to 1.1 short axis. Stable [place] cified mediastinal and left hilar lymph nodes redemonstrated likely related to prior granulomatous di sease. VASCULATURE: No aortic aneurysm. Moderate atherosclerotic calcification of the aorta and its branche s. MUSCULOSKELETAL: No acute osseous abnormalities. No aggressive osseous lesion. Bilateral shoulder art hropathy. SOFT TISSUES/LYMPH NODES: Unremarkable. LOWER NECK: Thyroid gland is absent versus atrophic.. ABDOMEN: ABDOMEN LIVER: Unremarkable GALLBLADDER AND BILE DUCTS: Unremarkable. PANCREAS: Unremarkable. SPLEEN: Scattered calcified granulomas. ADRENAL GLANDS: Unremarkable. KIDNEYS AND URETERS: No hydronephrosis. Stable right renal superior pole 1.3 cm cyst. No follow-up re commended. Nonobstructing right renal upper pole 4 mm calculus. No left renal calculi. Stable left mi d pole heterogeneously enhancing renal mass measuring 5.5 x 5.3 cm. No definitive extension into the renal vein or artery. Unchanged 1.1 cm focal urothelial enhancing lesion along the anterior wall of the ureteropelvic junction (series 3, image 67). Contrast is demonstrated within both collecting syst ems and right proximal ureter on the delayed phase. This demonstrates filling defect caused by this u reter lesion (series 11, image 31). PELVIS BLADDER: Similar size of 2.5 cm abnormal density along the posterior urinary bladder base (series 3, image 109). This may represent prostate hypertrophy with impression of the bladder base versus urothe lial lesion. Previously seen anterior right paramedian mass is not well-visualized. No new definitive lesions identified. REPRODUCTIVE: Unremarkable. ABDOMEN & PELVIS STOMACH AND BOWEL: Small hiatal hernia, duodenum is unremarkable. Distal colonic diverticulosis witho ut evidence for acute diverticulitis. The appendix is within normal limits. Enteric contrast reaches the ascending colon. No evidence of bowel obstruction. PERITONEUM: No evidence of pneumoperitoneum or free fluid. VASCULATURE: Postsurgical changes are endovascular aortobiiliac stent graft is again noted. 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 MUSCULOSKELETAL: No acute osseous abnormalities. No aggressive osseous lesion. SOFT TISSUE/ABDOMINAL WALL/LYMPH NODES: Tiny fat-containing umbilical hernia. Stranding with fluid id entified within the left inguinal region possibly related to prior intervention. Possibly small hemat omas. Underlying adenopathy is not excluded. No other suspicious lymph nodes are identified. IMPRESSION: 1. Relatively stable heterogenous enhancing left renal mass most consistent renal cell carcinoma. 2. Enhancing lesion identified within the right ureter at the ureteropelvic junction highly concernin g for urothelial malignancy/metastasis. 3. There is a focal region of soft tissue within the posterior midline urinary bladder base again. Th is may represent a urinary bladder neoplasm versus hypertrophied median lobe of the prostate gland. 4. Stable pulmonary nodular densities concerning for metastasis. 5. Additional chronic changes as described above. [facility], , 06/08/2024 3:07 PM
== END | disposition home or self-care (01) ==
LOC: RADCTMAIN 10:05
PROVIDERS: ATTEND Internal Medicine Hematology & Oncology
DX: C65.1 Malignant neoplasm of right renal pelvis (principal); C66.2 Malignant neoplasm of left ureter; C85.98 Non-Hodgkin lymphoma, unspecified, lymph nodes of multiple sites; Z71.3 Dietary counseling and surveillance; E78.5 Hyperlipidemia, unspecified; J98.4 Other disorders of lung; N28.89 Other specified disorders of kidney and ureter; K57.30 Diverticulosis of large intestine without perforation or abscess without bleeding; K44.9 Diaphragmatic hernia without obstruction or gangrene; R91.1 Solitary pulmonary nodule
CPT/HCPCS: 82565; 84520; 71260; 74177; Q9967

== ENCOUNTER → 2024-09-07 | Outpatient (CLI) | payer BC ==
[2024-09-07 11:38] LABS: African American GFR (CKD) >90 (>60 ml/min/1.73 sqM); Blood Urea Nitrogen 15 mg/dL (9-20); Non-African American GFR(CKD) 81 (>60 ml/min/1.73 sqM)
--- NOTE | 2024-09-10 02:30 | CT ---
EXAMINATION TYPE: CT ChestAbdPelvis w con DATE OF EXAM: 09/07/2024 12:57 PM COMPARISON: 06/08/2024 CLINICAL INDICATION: Male, 84 years old with history of C64.2 RENAL CELL, renal cell TECHNIQUE: CT ChestAbdPelvis w con , with sagittal coronal reformats. If MIP/3-D images were created, there are created on a separate workstation. Contrast used:100ml mL of Isovue 300 with IV Contrast, (none if empty) Oral contrast used: with Oral Contrast (none if empty) CT DLP: 879.20 mGycm, Automated exposure control for dose reduction was used. FINDINGS: CT CHEST: No suspicious lung nodules or focal infiltrates are present. No enlarged mediastinal or hilar adenopathy is evident. Moderate coronary artery calcifications pres ent. The ascending aorta diameter at the level of the main pulmonary artery is 3.3 cm. The main pulmonary artery diameter at the bifurcation is 2.[address] ABDOMEN: Liver: Normal Spleen: Normal Pancreas: Normal Adrenal glands: The adrenal glands are normal. Gallbladder: Normal Kidneys: There is a 5.9 x 6.0 cm mass at the inferior pole left kidney andr may be the patient's know n renal cell carcinoma.. There is mild right hydronephrosis. This appears to extend to the right ureteropelvic junction. There is hypodense fluid but a hyperdense area along the anterior pelvic margin. Underlying mass should be considered at this level. Example series 3 image 68. No cysts are present. Delayed images were obta ined through the kidneys, which remain unremarkable. Aorta: Vascular calcification is within the aorta. Aortic stent is present. No endovascular leak yady ntified. Inferior vena cava: Normal. CT PELVIS: Loops of bowel within the abdomen and pelvis are normal. There are loops of bowel which are incom pletely distended or lack oral contrast limiting their evaluation. Appendix: Normal as visualized. Urinary bladder: Normal. Genitourinary structures: Prostate is somewhat prominent Osseous structures: No suspicious lytic or sclerotic lesions. IMPRESSION: 1. 6 cm mass mid to inferior pole left kidney may be the patient's known renal cell carcinoma. 2. There is a mild right hydronephrosis. There is denser area within the right renal pelvis could be underlying mass. 3. Findings were present previously [facility], Workstation: [facility], 09/10/2024 2:27 AM
== END | disposition home or self-care (01) ==
LOC: RADCTMAIN 10:49
PROVIDERS: ATTEND Internal Medicine Hematology & Oncology
DX: C65.1 Malignant neoplasm of right renal pelvis (principal); C66.2 Malignant neoplasm of left ureter; Z71.3 Dietary counseling and surveillance; J44.9 Chronic obstructive pulmonary disease, unspecified; C85.98 Non-Hodgkin lymphoma, unspecified, lymph nodes of multiple sites
CPT/HCPCS: 82565; 84520; 71260; 74177; 36415; Q9967

== ENCOUNTER 2024-09-13 09:40 | Day surgery (SDC) | payer BC, MEDICARE ==
[2024-09-13] MEDS: IV FLUID CONTINUATION 1,000 ML IV ONE (10:12)
[2024-09-13 10:14] VITALS: TEMP 97.3
[2024-09-13] MEDS: LACTATED RINGERS 1,000 ML IV SCH (10:26)
[2024-09-13] MEDS ORDERED: LIDOCAINE 1% INJ 10MG/ML (20 ML MDV) ONE (10:59)
[2024-09-13] MEDS ORDERED: PROPOFOL 10 MG/ML 20 ML VIAL IV ONE (10:59)
--- NOTE | 2024-09-13 11:12 | P.PCN ---
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 He was treated with Keytruda for 6 months but developed medication induced side effects and it was discontinued about a year ago. He follows with Dr. Alexis. PROCEDURE PERFORMED: Esophagogastroduodenoscopy with biopsy. PREOPERATIVE DIAGNOSIS: Follow-up non-Hodgkin's lymphoma of the distal esophagus diagnosed in March 2022. IV sedation per anesthesia. PROCEDURE: After informed consent was obtained, the patient was brought into the endoscopy unit. IV conscious sedation was administered by Anesthesia under continuous monitoring. Initially the Olympus GIF-140 video endoscope was inserted into the mouth. Esophagus intubated without any difficulty. It was gradually advanced into the stomach and duodenum and carefully examined. The bulb and the second part of the duodenum appeared normal. The scope at this time was withdrawn to the stomach, adequately insufflated with air, and upon careful examination, mucosa of the antrum, and mild gastritis and biopsies were done from this area. Body, cardia and the fundus appeared normal. The scope was then withdrawn into the esophagus. The GE junction was located at 39 cm from the incisors. The distal esophagus appeared normal. There were no erosions or ulcerations seen. In the proximal/mid distal mid esophagus extending from 25 to 28 cm from the incisors there was a 3 cm raised smooth polypoid area and multiple biopsies were done. And the patient tolerated the procedure well. IMPRESSION: 1. 3 cm raised polypoid area in the proximal/mid esophagus extending from 25 to a 28 cm from the incisors status post multiple biopsies 2. Distal esophagus appeared normal 3. Mild antral gastritis. RECOMMENDATIONS: The findings of this examination were discussed with the patient as well as his family. He was advised to follow-up with the biopsy results and follow-up with Dr. Green as scheduled.
[2024-09-13 11:49] VITALS: BP 139/74; PULSE 65; RESP 16
== END 2024-09-13 11:57 | disposition home or self-care (01) ==
LOC: ORWHC2ENDO 09:40
PROVIDERS: ATTEND Internal Medicine Gastroenterology
DX: C85.99 Non-Hodgkin lymphoma, unspecified, extranodal and solid organ sites (principal); K20.90 Esophagitis, unspecified without bleeding; K22.89 Other specified disease of esophagus; K29.50 Unspecified chronic gastritis without bleeding; E78.5 Hyperlipidemia, unspecified; J44.9 Chronic obstructive pulmonary disease, unspecified; G47.33 Obstructive sleep apnea (adult) (pediatric); I73.9 Peripheral vascular disease, unspecified; N40.0 Benign prostatic hyperplasia without lower urinary tract symptoms; E07.9 Disorder of thyroid, unspecified; Z85.51 Personal history of malignant neoplasm of bladder; Z85.528 Personal history of other malignant neoplasm of kidney; Z79.899 Other long term (current) drug therapy; Z79.02 Long term (current) use of antithrombotics/antiplatelets; Z79.51 Long term (current) use of inhaled steroids; Z79.890 Hormone replacement therapy; Z90.89 Acquired absence of other organs; Z98.890 Other specified postprocedural states
CPT/HCPCS: 88305; 88342; 88341; 43239; J2003; J2704